=== PATIENT | female | born 1955 | race Caucasian/White ===

== ENCOUNTER 2019-10-13 07:39 | Outpatient (CLI) | payer MEDICARE, BC, SELFPAY ==
--- NOTE | ~2019-10-13 | MR_ITS ---
EXAMINATION: MR cervical spine wo con DATE: 10/13/2019 08:40 INDICATION: Neck pain. TECHNIQUE: Magnetic resonance imaging (MRI) of the cervical spine was performed without intravenous c ontrast. Sequences included sagittal T2-weighted FSE, sagittal STIR FSE, sagittal T1-weighted FSE, ax ial MERGE, and axial T2-weighted FSE. COMPARISON: None FINDINGS: There is kyphosis of upper cervical spine. Vertebral body heights are normal. There is wilfrid rely decreased disc height at C3-C4, moderately decreased disc height at C4-C5, and mildly decreased disc height at C5-C6. The spinal cord signal intensity is normal. The following disc levels are speci fically discussed: C2-C3: The disc does not extend beyond the endplate margin. There is no uncovertebral joint osteoarth ritis. There is no facet joint osteoarthritis. There is no neural foraminal stenosis. There is no arsalan tral canal stenosis. C3-C4: The disc is bulging. There is severe bilateral uncovertebral joint osteoarthritis. There is mi ld bilateral facet joint osteoarthritis. There is mild bilateral neural foraminal stenosis. There is mild central canal stenosis. C4-C5: The disc is bulging. There is mild right and severe left uncovertebral joint osteoarthritis. T here is mild bilateral facet joint osteoarthritis. There is mild right and moderate left neural you inal stenosis. There is mild central canal stenosis. C5-C6: The disc is bulging. There is moderate right and severe left uncovertebral joint osteoarthriti s. There is mild bilateral facet joint osteoarthritis. There is mild bilateral neural foraminal steno sis. There is mild central canal stenosis. C6-C7: The disc is mildly bulging. There is mild bilateral uncovertebral joint osteoarthritis. There is no facet joint osteoarthritis. There is mild right neural foraminal stenosis. There is no central canal stenosis. C7-T1: The disc does not extend beyond the endplate margin. There is no uncovertebral joint osteoarth ritis. There is mild bilateral facet joint osteoarthritis. There is no neural foraminal stenosis. The re is no central canal stenosis. IMPRESSION: 1. Severe cervical spondylosis. Reviewed, dictated and finalized at location A.
== END 2019-10-13 07:40 | disposition home or self-care (01) ==
PROVIDERS: PCP Nurse Practitioner Adult Health; Visit Provider Nurse Practitioner Adult Health
DX: M47.22 Other spondylosis with radiculopathy, cervical region (principal)
CPT/HCPCS: 72141

== ENCOUNTER 2019-12-29 14:16 | Outpatient (CLI) | payer MEDICARE, BC, SELFPAY ==
--- NOTE | ~2019-12-29 | CT_ITS ---
EXAMINATION: CT abdomen pelvis wo con DATE: 12/29/2019 15:40 INDICATION: Diverticulitis. TECHNIQUE: Computed tomography (CT) of the abdomen and pelvis was performed without intravenous contr ast. Automated exposure control and iterative reconstruction technique were employed. The dose-length product was 449.20 mGy-cm. COMPARISON: CT abdomen and pelvis 08/16/2017 FINDINGS: The visualized portions of the lung bases demonstrate mild atelectasis. No pleural effusion . The heart size is normal. There are coronary artery calcifications. There is a small pericardial ef fusion. There is a small sliding hiatal hernia. The liver and spleen are normal. There are gallstones in the gallbladder, which is normal in caliber. The pancreas and right adrenal gland are normal. The re is a 3.2 cm mass in left adrenal gland measuring low-attenuation without change, consistent with a n adenoma. 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 There is a 2 mm stone in left kidney. There are scattered diverticula in the colon. There is fat stranding ar ound the sigmoid colon, consistent with diverticulitis. There are no dilated loops of bowel. The appe ndix is not visualized. There are no pathologically enlarged lymph nodes. There is no free intraperit jolley fluid. There is mild thoracolumbar spondylosis. IMPRESSION: 1. Mild sigmoid diverticulitis. No perforation or abscess. 2. Small pericardial effusion, worsened from 08/16/2017. Reviewed, dictated and finalized at location B.
== END 2019-12-29 14:17 | disposition home or self-care (01) ==
PROVIDERS: PCP Nurse Practitioner Adult Health; Visit Provider Internal Medicine Gastroenterology
DX: K57.92 Diverticulitis of intestine, part unspecified, without perforation or abscess without bleeding (principal); I31.3 Pericardial effusion (noninflammatory)
CPT/HCPCS: 74176

== ENCOUNTER 2020-07-23 10:59 | Outpatient (CLI) | payer MEDICARE, BC, SELFPAY ==
--- NOTE | 2020-07-23 13:28 | WPDSIXMINUTE ---
Six Minute Walk This is a 6 minutes walk test. The test was performed and interpreted in accordance with the 2014 ERS/ATS task force guidelines. Findings: The patient's resting room air oxygen saturation measured by pulse oximetry was 94% and her heart rate was 80 bpm. Patient ambulated for 328 meters and oxygen saturation remained 90 to 95%. Heart rate at the end of the study was 111 bpm. There are no prior studies for comparison.
== END 2020-07-23 11:00 | disposition home or self-care (01) ==
PROVIDERS: PCP Nurse Practitioner Adult Health; Visit Provider Nurse Practitioner Adult Health
DX: Z99.81 Dependence on supplemental oxygen (principal)
CPT/HCPCS: 94618

== ENCOUNTER → 2021-01-03 00:51 | Outpatient (CLI) | payer MEDICARE, BC, SELFPAY ==
[2021-01-03 20:12] LABS: SARS-CoV-2 RNA PCR Negative
== END ==
PROVIDERS: PCP Nurse Practitioner Adult Health; Visit Provider Nurse Practitioner Adult Health
DX: R05 Cough (principal); Z20.822 Contact with and (suspected) exposure to COVID-19
CPT/HCPCS: C9803; U0003; U0005

== ENCOUNTER → 2021-05-02 03:41 | Outpatient (CLI) | payer MEDICARE, BC, SELFPAY ==
[2021-05-05 20:42] LABS: SARS-CoV-2 RNA PCR Negative
== END ==
PROVIDERS: PCP Nurse Practitioner Adult Health; Visit Provider Nurse Practitioner Adult Health
DX: Z20.822 Contact with and (suspected) exposure to COVID-19 (principal)
CPT/HCPCS: C9803; U0003; U0005

== ENCOUNTER 2021-05-14 08:03 | Outpatient (CLI) | payer MEDICARE, BC, SELFPAY ==
--- NOTE | 2021-05-14 | ECHO_ITS ---
Patient Info Name: Gloria Reyes Age: 65 years : 1955 Gender: Female Ht: 58 in Wt: 155 lbs BSA: 1.73 m2 HR: 66 bpm BP: 136 / 71 mmHg Heart Rhythm: Sinus Rhythm Technical Quality: Good Exam Date: 05/14/2021 9:25 AM Exam Location: [facility] Patient Status: Outpatient Admit Date: 05/14/2021 Staff Ordering Physician: Antonio, Alexandra FORRESTER Tattoo Artist: Aimee Churchill RDCS Attending Provider: Antonio, Alexandra FORRESTER Exam Type: CA echo doppler color flow Study Info Indications - MARIE R06.09 Complete two-dimensional, color flow and Doppler transthoracic echocardiogram is performed. Summary 1. Complete two-dimensional, color flow and Doppler transthoracic echocardiogram is performed. 2. Left ventricular chamber dimension is normal. 3. Left ventricular systolic function is normal, estimated at 60-65%. 4. There is no increased left ventricular wall thickness. 5. The left ventricular diastolic function is grade I diastolic dysfunction. 6. Left atrial chamber dimension is mildly enlarged. 7. There is mild mitral valve regurgitation. 8. There is mild tricuspid valve regurgitation. 9. The pericardium appears thickened pericardium. 10. There is small pericardial effusion. 11. Increased echogenicity seen within the pericardium. Left Ventricle Left ventricular chamber dimension is normal. Left ventricular systolic function is normal, estimated at 60-65%. There is no increased left ventricular wall thickness. The left ventricular diastolic function is grade I diastolic dysfunction. Right Ventricle Right ventricular chamber dimension is normal. Right ventricular systolic function is normal. Left Atria Left atrial chamber dimension is mildly enlarged. Right Atria Right atrial chamber dimension is normal. Atrial Septum Intact interatrial septum visualized by color flow imaging. Aortic Valve The aortic valve is not well visualized. There is no aortic valve stenosis. There is trace aortic valve regurgitation. Pulmonic Valve The pulmonic valve is normal. There is no pulmonic valve stenosis. There is trace pulmonic regurgitation. Mitral Valve The mitral valve has thickened leaflets. There is no mitral valve stenosis. There is mild mitral valve regurgitation. Tricuspid Valve The tricuspid valve leaflets are normal. There is no significant tricuspid valve stenosis. There is mild tricuspid valve regurgitation. No pulmonary hypertension, estimated pulmonary arterial systolic pressure is 32 mmHg. Pericardium/Pleural The pericardium appears thickened pericardium. There is small pericardial effusion. Increased echogenicity seen within the pericardium. Inferior Vena Cava Normal inferior vena cava with >50% collapse upon inspiration consistent with elevated right atrial pressure, 10 mmHg. Aorta The aortic root size at the sinus of Valsalva is normal. The prox ascending aorta size is normal. Left Ventricular Outflow Tract Name Value Normal LVOT 2D LVOT Diameter 2.0 cm LVOT Doppler LVOT Peak Gradient 4 mmHg LVOT Mean
--- NOTE | ~2021-05-14 | CT_ITS ---
EXAMINATION: CT lung screening DATE: 05/14/2021 08:33 INDICATION: PERSONAL HISTORY OF NICOTINE DEPENDENCE TECHNIQUE: Computed tomography (CT) of the chest was performed without intravenous contrast. Addition al 3D reconstructions utilizing coronal maximum intensity projection (MIP) were performed. Automated exposure control and iterative reconstruction technique were employed. The dose-length product was 79 .24 mGy-cm. COMPARISON: 08/03/2018 FINDINGS: Linear bands of atelectasis/scarring in the right middle lobe and lingula. There are few scattered ti ny less than 3 mm nodules scattered throughout both lungs which appears primarily due to some mucous plugging of a few of the smaller more peripheral bronchi in both lungs. No pulmonary edema or pleural effusion. Heart size is normal. Small pericardial effusion. Atherosclerotic coronary artery calcific ations. No pathologically enlarged thoracic lymphadenopathy. Thoracic aorta is normal in caliber. 3.2 cm low-attenuation left adrenal adenoma. Small calcified gallstone in the visualized neck of the gal lbladder. Mild thoracic spondylosis. IMPRESSION: 1. Lung-RADS category 2: Benign appearance or behavior. Continue annual screening with noncontrast lo w-dose chest CT in 12 months. 2. Small pericardial effusion. Reviewed, dictated and finalized at location A. O DIRECTOR IMPRESSION: 1. Lung-RADS category 2: Benign appearance or behavior. Continue annual screeni ng with noncontrast low-dose chest CT in 12 months. 2. Small pericardial effusion.
--- NOTE | 2021-05-14 12:52 | WPDSIXMINUTE ---
Six Minute Walk Procedure Procedure Performed Pulmonary Stress Test (6 min walk) Six Minute Walk This is a 6 minute walk test. The test was performed and interpreted in accordance with the 2014 ERS/ATS task force guidelines. Findings: The patient's resting room air oxygen saturation measured by pulse oximetry was 97% and heart rate was 71 bpm. Patient ambulated for 305 meters and oxygen saturation remained 88 to 98%. Heart rate at the end of the study was 115 bpm. The patient Should be formally evaluated for for supplemental oxygen use with exercise. There are no prior studies for comparison.
--- NOTE | 2021-05-14 12:54 | WPDPFTINT ---
PFT Procedure Performed PFT Procedure Performed Spirometry with Pre/Post Bronchodilator Plethysmography (Lung Vol) Diffusing Cap (DLCO) Flow Vol Loop PFT Interpretation This is a pulmonary function test with pre and post-bronchodilator spirometry, plethysmography and diffusing capacity. The test was performed and results interpreted in accordance with the 2019 and 2005 ATS/ERS Task Force guidelines respectively using the Global Lung Function Initiative-2012 reference equations. Patient demonstrated good effort and cooperation. Reproducibility criteria were met. The quality of the pre bronchodilator spirometry maneuver was Grade A and post bronchodilator spirometry maneuver was Grade A. Findings: Spirometry: There is decreased maximal expiratory airflow at all lung volumes with concave expiratory flow tracing. The contour of the inspiratory flow tracing is normal. The pre bronchodilator FVC is 1.44 L, 59% predicted. The pre bronchodilator FEV1 is 0.83 L, 43% predicted. The FEV1: FVC ratio is 58%. The post bronchodilator FVC is 1.48 L, representing a 3% increase. The post bronchodilator FEV1 is 0.90 L, representing a 9% increase. Plethysmography: The total lung capacity is 3.74 L, 87% predicted. The functional residual capacity is 2.48 L, 102% predicted. The residual volume is 2.30 L, 122% predicted. Diffusing capacity: The absolute diffusion capacity is 9.9, 53% predicted. The diffusing capacity corrected for alveolar volume is 3.80, 83% predicted. Impression: There is a severe obstructive abnormality without significant improvement after inhaling a single dose of albuterol. The lung volumes are normal. The absolute diffusing capacity is moderately decreased and normalizes when corrected for alveolar volume. There are no prior studies for comparison
== END 2021-05-14 08:04 | disposition home or self-care (01) ==
LOC: ANHIMG 08:08
PROVIDERS: PCP Nurse Practitioner Adult Health; Visit Provider Nurse Practitioner
DX: Z12.2 Encounter for screening for malignant neoplasm of respiratory organs (principal); Z87.891 Personal history of nicotine dependence; J44.9 Chronic obstructive pulmonary disease, unspecified; R94.31 Abnormal electrocardiogram [ECG] [EKG]; R06.09 Other forms of dyspnea; I34.0 Nonrheumatic mitral (valve) insufficiency; I36.1 Nonrheumatic tricuspid (valve) insufficiency; J90 Pleural effusion, not elsewhere classified
CPT/HCPCS: 36415; 71271; 80048; 80061; 82043; 82103; 82104; 82306; 82784; 82785; 82787; 83036; 83880; 84443; 85025; 86003; 86480; 93306; 94060; 94618; 94726; 94729

== ENCOUNTER 2021-05-14 10:43 | Outpatient (CLI) | payer MEDICARE, BC, SELFPAY ==
[2021-05-14 12:51] LABS: NT Pro B Type Natriuretic Pept 136 pg/mL (5-100)
[2021-05-14 14:24] LABS: Basophils Absolute Auto 0.1 K/mm3 (0.0-0.1); Basophils Percent Auto 0.9 % (0.2-1.2); Eosinophils Absolute Auto 0.2 K/mm3 (0-0.3); Eosinophils Percent Auto 3.6 % (0-4.4); Hematocrit 43.8 % (37.0-47.0); Hemoglobin 13.7 g/dL (12.0-15.0); Immature Granulocyte Absolute 0.02 K/mm3 (0.00-0.031); Immature Granulocyte Percent A 0.3 % (0-0.5); Lymphocytes Absolute Auto 1.88 K/mm3 (0.9-3.2); Lymphocytes Percent Auto 32.5 % (18.3-44.2); Mean Corpuscular HGB Conc 31.3 g/dl (32-36); Mean Corpuscular Hemoglobin 28.7 pg (26-34); Mean Corpuscular Volume 91.6 fl (80-100); Mean Platelet Volume 10.8 fl (7.4-10.4); Monocytes Absolute Auto 0.4 K/mm3 (0.1-0.6); Monocytes Percent Auto 7.6 % (2.6-8.5); Neutrophils Absolute Auto 3.2 K/mm3 (1.3-6.7); Neutrophils Percent Auto 55.1 % (45.5-73.1); Platelet Count Result 367 k/mm3 (150-375); Red Blood Count 4.78 M/mm3 (4.2-5.4); Red Cell Distribution Width 13.8 % (11.5-14.5); White Blood Count 5.8 K/mm3 (4.5-10.0)
[2021-05-17 02:29] LABS: Immunoglobulin G, Serum 748 mg/dL (600-1540); Immunoglobulin G1 373 mg/dL (382-929); Immunoglobulin G2 226 mg/dL (241-700); Immunoglobulin G3 45 mg/dL (22-178); Immunoglobulin G4 50.3 mg/dL (4.0-86.0)
[2021-05-17 10:03] LABS: Alpha-1-Antitrypsin, QN 173 mg/dL (83-199)
[2021-05-17 12:55] LABS: Immunoglobulin E 175 kU/L (<=114)
[2021-05-19 12:07] LABS: NIL 0.03 IU/mL; Quantiferon TB Plus, 1T NEGATIVE (NEGATIVE); TB1-NIL <0.00 IU/mL
== END 2021-05-14 10:44 | disposition home or self-care (01) ==
PROVIDERS: PCP Nurse Practitioner Adult Health; Visit Provider Nurse Practitioner
DX: R06.09 Other forms of dyspnea (principal); J30.9 Allergic rhinitis, unspecified
CPT/HCPCS: 36415; 82103; 82104; 82784; 82785; 82787; 83880; 85025; 86003; 86480

== ENCOUNTER 2021-05-14 10:52 | Outpatient (CLI) | payer MEDICARE, BC, SELFPAY ==
[2021-05-14 12:41] LABS: Cholesterol 240 mg/dL (0-200); HDL Direct 79 mg/dL; Triglycerides 104 mg/dL (<150)
[2021-05-14 12:45] LABS: Creatinine Urine 69.9 mg/dL
[2021-05-14 12:53] LABS: LDL Cholesterol Direct 128 mg/dL
[2021-05-14 13:16] LABS: Hemoglobin A1C 5.7 % (<5.7)
[2021-05-14 13:24] LABS: MALB Creatinine Ratio < 8.6 mg/g (0-30); Microalbumin Urine Random < 6.0 mg/L (0-16.7)
[2021-05-14 14:54] LABS: Vitamin D 25 Hydroxy 33.8 ng/mL
[2021-05-14 21:14] LABS: Anion Gap 13 mmol/L (8-16); Blood Urea Nitrogen 11 mg/dL (7-17); Calcium 9.8 mg/dL (8.4-10.2); Carbon Dioxide 26 mmol/L (22-30); Chloride 103 mmol/L (98-107); Estimated Glomerular Filt Rate > 60; Glucose 112 mg/dL (65-110); Potassium 4.4 mmol/L (3.4-5.0); Sodium 142 mmol/L (137-145)
== END 2021-05-14 10:53 | disposition home or self-care (01) ==
PROVIDERS: PCP Nurse Practitioner Adult Health; Visit Provider Nurse Practitioner Adult Health
DX: E55.9 Vitamin D deficiency, unspecified (principal); R73.03 Prediabetes; R94.6 Abnormal results of thyroid function studies; E66.9 Obesity, unspecified
CPT/HCPCS: 36415; 80048; 80061; 82043; 82306; 83036; 84443

== ENCOUNTER 2022-10-07 19:03 | Emergency (ER) | payer MEDICARE, BC, SELFPAY ==
--- NOTE | ~2022-10-07 | XR_ITS ---
EXAMINATION: XR chest 1V portable Exam Date/Time: 10/07/2022 19:40 CDT HISTORY: Shortness of breath HX COPD Comparison: 05/23/2017. RESULT: Lines, tubes, and devices: None. Lungs and pleura: Senescent changes. Left basilar scar. Otherwise clear. Cardiomediastinal silhouette: Stable. Other: No acute osseous or upper abdominal finding. IMPRESSION: No acute cardiopulmonary process. Reviewed, dictated and finalized at location K.
--- NOTE | ~2022-10-07 | US_ITS ---
EXAMINATION: US venous doppler [facility] DATE: 10/07/2022 20:02 INDICATION: left foot, lower leg swelling . TECHNIQUE: Grayscale images without and with compression and Doppler images of the left lower extremi ty veins were obtained. COMPARISON: None FINDINGS: The left common femoral vein, profunda (deep) femoral vein, femoral vein, popliteal vein, peroneal v ein, posterior tibial veins, gastrocnemius vein, and greater saphenous vein are patent. IMPRESSION: 1. Patent left lower extremity veins. No evidence of deep venous thrombosis. Reviewed, dictated and finalized at location K.
[2022-10-07 19:05] VITALS: BP 111/99; PULSE 81; RESP 20; TEMP 36.3; O2SAT 97
--- NOTE | 2022-10-07 19:09 | ECG_ITS ---
Measurements Intervals [place] Rate: 70 P: 60 OH: 165 QRS: 87 QRSD: 82 T: 66 QT: 359 QTc: 388 Interpretive Statements SINUS RHYTHM LOW QRS VOLTAGE IN PRECORDIAL LEADS INCOMPLETE RIGHT BUNDLE BRANCH BLOCK BORDERLINE T WAVE ABNORMALITY- ANTERIOR LEADS BASELINE ARTIFACT- I, III, AVL BORDERLINE ECG NO PREVIOUS ECG AVAILABLE FOR COMPARISON Electronically Signed On 10-08-2022 8:08:04 CDT by Armando Bruce D.O.
--- NOTE | 2022-10-07 19:32 | ED.GENADULT ---
HPI - General Adult General Chief complaint: Extremity Injury, Lower Stated complaint: left foot pain Time Seen by Provider: 10/07/22 19:29 Source: patient Mode of arrival: ambulatory Limitations: no limitations History of Present Illness HPI narrative: Patient is 67 years old white female drove herself to the emergency room from home complaining of swelling of the left foot and left ankle started 4 days ago. She denies any trauma. Or recent travel. History of COPD denies any shortness of breath different than usual. Related Data Home Medications Medication Instructions Recorded Confirmed ergocalciferol (vitamin D2) 1,250 10/07/22 mcg (50,000 unit) capsule fluticasone fur. 100 mcg-umeclid inhalation 10/07/22 62.5 mcg-vilant 25 mcg inhalat.powder (Trelegy Ellipta) montelukast 10 mg tablet mg 10/07/22 prednisone 20 mg tablet mg 10/07/22 Allergies Allergy/AdvReac Type Severity Reaction Status Date / Time levofloxacin Allergy Severe could not Verified 10/07/22 19:32 breathe and hives Iodinated Contrast Media Allergy Unknown Unknown Verified 10/07/22 19:32 Sulfa (Sulfonamide Allergy Unknown SWELLING Verified 10/07/22 19:32 Antibiotics) codeine AdvReac Unknown MELENDEZ Verified 07/30/20 09:00 Contrast Media Allergy Mild HEART Uncoded 07/30/20 09:00 PALPATION Review of Systems Review of Systems: All systems reviewed & are unremarkable except as noted in HPI and below PMFSH Family History Family History Mother Family history of malignant neoplasm of kidney Other Diabetes mellitus Family history of elevated blood lipids Family history of lung cancer Hypertension Social History Social History Smoking status: Heavy tobacco smoker Exam Narrative: General appearance: Well-developed, well-nourished Skin: Normal color Head: Normocephalic, nontraumatic Eyes: Clear conjunctiva ENT: Oropharynx normal, ears normal, nose normal Neck: Supple, nontender Chest and respiratory: Few scattered expiratory rhonchi bilaterally Heart: Regular rate/rhythm Abdomen: Soft, nontender, no organomegaly, quiet bowel sounds Vascular: Normal peripheral pulses, normal capillary refill. Musculoskeletal: Left foot and ankle showed 1+ edema, right foot and ankle showed trace edema. No bruises, no swelling, no rash, good range of motion, no varicose vein. Neurologic: Alert and oriented ?3, APPLICATION ENGINEER is normal as tested, no gross motor deficit Course Reevaluation(s) Reevaluation #1: No new changes, patient denying any new symptoms, patient was notified about the results and she is okay to go home. Date: 10/07/22 Time: 21:27 Vital Signs Vital signs: Vital Signs Temperature 36.3 C L 10/07/22 19:05 Pulse Rate 81 10/07/22 19:05 Respiratory Rate 20 10/07/22 19:05 Blood Pressure 111/99 H 10/07/22 19:05 Pulse Oximetry 97 10/07/22 19:05 Oxygen Delivery Room Air 10/07/22 19:05 Temperature 36.3 C L 10/07/22 19:05 Pulse Rate 81 10/07/22 19:05 Respiratory Rate 20 10/07/22 19:05 Blood Pressure 111/99 H 10/07/22 19:05 Pulse Oximetry 97 10/07/22 19:05 Oxygen Delivery Room Air 10/07/22 19:05 Medical Decision Making MDM Narrative Medical decision making narrative: Patient presents with swelling of left foot and left ankle, physical examination consistent with the above. Differential diagnosis deep vein thrombosis, CHF, dependent edema. Work-up today showed normal white count, normal coags, creatinine of 1.1, no old records for comparison, proBNP 970 compared to 136 2020. Chest
[2022-10-07 20:28] LABS: Basophils Absolute Auto 0.1 K/mm3 (0.0-0.1); Basophils Percent Auto 0.8 % (0.2-1.2); Eosinophils Absolute Auto 0.1 K/mm3 (0-0.3); Eosinophils Percent Auto 1.6 % (0-4.4); Hematocrit 36.9 % (37.0-47.0); Hemoglobin 11.5 g/dL (12.0-15.0); Immature Granulocyte Absolute 0.06 K/mm3 (0.00-0.031); Immature Granulocyte Percent A 0.7 % (0-0.5); Lymphocytes Absolute Auto 2.55 K/mm3 (0.9-3.2); Lymphocytes Percent Auto 28.3 % (18.3-44.2); Mean Corpuscular HGB Conc 31.2 g/dl (32-36); Mean Corpuscular Hemoglobin 28.1 pg (26-34); Mean Corpuscular Volume 90.2 fl (80-100); Mean Platelet Volume 10.3 fl (7.4-10.4); Monocytes Absolute Auto 0.9 K/mm3 (0.1-0.6); Monocytes Percent Auto 9.8 % (2.6-8.5); Neutrophils Absolute Auto 5.3 K/mm3 (1.3-6.7); Neutrophils Percent Auto 58.8 % (45.5-73.1); Platelet Count Result 352 k/mm3 (150-375); Red Blood Count 4.09 M/mm3 (4.2-5.4); Red Cell Distribution Width 15.5 % (11.5-14.5)
[2022-10-07 20:39] LABS: Alanine Aminotransferase 19 U/L (6-35); Albumin Level 3.8 g/dL (3.5-5.1); Alkaline Phosphatase 73 U/L (38-126); Anion Gap 5 mmol/L (8-16); Aspartate Amino Transferase 27 U/L (14-36); Bilirubin,Total 0.3 mg/dL (0.2-1.3); Blood Urea Nitrogen 22 mg/dL (7-17); Calcium 9.1 mg/dL (8.4-10.2); Carbon Dioxide 26 mmol/L (22-30); Chloride 109 mmol/L (98-107); Estimated Glomerular Filt Rate 49; Glucose 98 mg/dL (65-110); Potassium 4.1 mmol/L (3.4-5.0); Sodium 140 mmol/L (137-145)
[2022-10-07 20:40] LABS: INR 0.9; Prothrombin Time 12.5 Seconds (11.1-14.7)
[2022-10-07 20:41] LABS: Partial Thromboplastin Time 25.3 SECONDS (22.3-36.8)
[2022-10-07 20:53] LABS: NT Pro B Type Natriuretic Pept 970 pg/mL (19.9-100); Troponin I < 0.012 ng/mL (0.000-0.034)
[2022-10-07 21:39] VITALS: BP 137/76; PULSE 68; RESP 18; O2SAT 97
== END 2022-10-07 21:40 | disposition home or self-care (01) ==
PROVIDERS: Emergency Provider Emergency Medicine
DX: R60.0 Localized edema (principal); J44.9 Chronic obstructive pulmonary disease, unspecified; F17.200 Nicotine dependence, unspecified, uncomplicated; I45.10 Unspecified right bundle-branch block; R94.31 Abnormal electrocardiogram [ECG] [EKG]
CPT/HCPCS: 36415; 71045; 80053; 83880; 84484; 85025; 85610; 85730; 93005; 93971; 99284

== ENCOUNTER 2023-05-26 11:06 | Outpatient (CLI) | payer MEDICARE, BC, SELFPAY ==
--- NOTE | ~2023-05-26 | XR_ITS ---
XR chest 2V DATE: 05/26/2023 11:16 INDICATION: Chronic obstructive pulmonary disease TECHNIQUE: PA and lateral views COMPARISON: 10/07/2022 portable AP chest FINDINGS: Borderline heart size. Aortic arch calcification. Minimal discoid atelectasis or scarring in the right mid and lower lung. No pulmonary infiltrate or c onsolidation, pleural effusion or pulmonary vascular congestion or pneumothorax is detected. Osteopenia. IMPRESSION: Borderline heart size Aortic calcification No active pulmonary disease Osteopenia Reviewed, dictated and finalized at location B. R CENTER TECHNICIAN
== END 2023-05-26 11:07 | disposition home or self-care (01) ==
PROVIDERS: PCP Nurse Practitioner Adult Health; Visit Provider Nurse Practitioner Adult Health
DX: J44.9 Chronic obstructive pulmonary disease, unspecified (principal); I70.0 Atherosclerosis of aorta; M85.80 Other specified disorders of bone density and structure, unspecified site
CPT/HCPCS: 71046

== ENCOUNTER 2023-11-08 11:18 | Outpatient (CLI) | payer MEDICARE, BC, SELFPAY ==
[2023-11-08 18:56] LABS: Hematocrit 40.1 % (37.0-47.0); Hemoglobin 12.3 g/dL (12.0-15.0); Mean Corpuscular HGB Conc 30.7 g/dl (32-36); Mean Corpuscular Hemoglobin 27.8 pg (26-34); Mean Corpuscular Volume 90.7 fl (80-100); Mean Platelet Volume 10.7 fl (7.4-10.4); Platelet Count Result 308 k/mm3 (150-375); Red Blood Count 4.42 M/mm3 (4.2-5.4); Red Cell Distribution Width 14.7 % (11.5-14.5)
[2023-11-08 19:27] LABS: Vitamin D 25 Hydroxy 25.3 ng/mL
[2023-11-08 19:31] LABS: Anion Gap 5 mmol/L (4-12); Blood Urea Nitrogen 14 mg/dL (7-17); Calcium 9.7 mg/dL (8.4-10.2); Carbon Dioxide 26 mmol/L (22-30); Chloride 109 mmol/L (98-107); Cholesterol 207 mg/dL (0-200); Estimated Glomerular Filt Rate > 60; Glucose 90 mg/dL (65-110); HDL Direct 56 mg/dL; Potassium 4.3 mmol/L (3.4-5.0); Sodium 140 mmol/L (137-145); Triglycerides 102 mg/dL (<150)
[2023-11-08 19:41] LABS: LDL Cholesterol Direct 121 mg/dL
[2023-11-08 19:49] LABS: Hemoglobin A1C 5.4 % (<5.7)
== END 2023-11-08 11:19 | disposition home or self-care (01) ==
LOC: ANHBWCLAB 11:20
PROVIDERS: PCP Nurse Practitioner Adult Health; Visit Provider Nurse Practitioner Adult Health
DX: R73.9 Hyperglycemia, unspecified (principal); N28.9 Disorder of kidney and ureter, unspecified; E55.9 Vitamin D deficiency, unspecified; I10 Essential (primary) hypertension; E66.9 Obesity, unspecified; M79.10 Myalgia, unspecified site
CPT/HCPCS: 36415; 80048; 80061; 82306; 83036; 83735; 85027

== ENCOUNTER 2024-04-22 16:44 | Emergency (ER) | payer MEDICARE, BC, SELFPAY ==
--- NOTE | ~2024-04-22 | XR_ITS ---
EXAMINATION: XR abdomen/kub 1V DATE: 04/22/2024 17:31 INDICATION: Low abdominal pain. Left flank pain. TECHNIQUE: A supine view of the abdomen on 2 radiographs was obtained. COMPARISON: CT abdomen and pelvis 12/29/2019 FINDINGS: There are no dilated loops of bowel. There are phleboliths in the pelvis. There is a phlebo lith in right ovarian vein. IMPRESSION: 1. No visible urolithiasis. Reviewed, dictated and finalized at location A. RATION MANAGER IMPRESSION: 1. No visible urolithiasis.
[2024-04-22 16:54] VITALS: BP 121/95; PULSE 84; RESP 18; TEMP 36.5; O2SAT 97
--- NOTE | 2024-04-22 16:59 | ED.GENADULT ---
HPI - General Adult General Chief complaint: Urogenital-Female Stated complaint: UTI Time Seen by Provider: 04/22/24 16:59 Source: patient Mode of arrival: ambulatory Limitations: no limitations History of Present Illness HPI narrative: 5-year-old female patient presents to the [facility] with complaints of left flank pain that radiates to the pelvis. Patient states has been going on for the last 2-3 days. Patient states at times it does burn when she urinates. Patient states she has been treated with Augmentin recently for COPD exacerbation. Denies seeing any blood in the urine. Related Data Allergies Allergy/AdvReac Type Severity Reaction Status Date / Time levofloxacin Allergy Severe could not Verified 04/22/24 17:05 breathe and hives Iodinated Contrast Media Allergy Unknown Unknown Verified 04/22/24 17:05 Sulfa (Sulfonamide Allergy Unknown SWELLING Verified 04/22/24 17:05 Antibiotics) codeine AdvReac Unknown MELENDEZ Verified 04/22/24 17:05 Contrast Media Allergy Mild HEART Uncoded 04/22/24 17:05 PALPATION Review of Systems Review of Systems: CONSTITUTIONAL: Denies fever, chills, or sweats. EYES: Denies visual changes, redness, or discharge. ENT: Denies rhinorrhea, congestion, sore throat, or otalgia. CARDIOVASCULAR: Denies chest pain, palpitations, or edema. RESPIRATORY: Denies cough or dyspnea. GASTROINTESTINAL: Positive left lower abdominal pain, denies nausea, vomiting, or diarrhea. GENITOURINARY: positive dysuria or hematuria. SKIN: Denies rash or itching. MUSCULOSKELETAL: Denies back pain, joint pain, or myalgia. NEUROLOGIC: Denies headache, numbness, or weakness. PSYCHIATRIC: Denies anxiety or depression. 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 Migraines Obesity Pneumonia Rectal polyp Renal impairment Sleep apnea Surgical History Surgical History (Updated 04/22/24 @ 17:27 by ARIAS Balderas) H/O: hysterectomy History of appendectomy History of orthopedic surgery left leg fracture with jacky placement Hx of cholecystectomy Family History Family History Mother Family history of malignant neoplasm of kidney Sibling Lung cancer Heart disease Grandparent Heart disease Other Diabetes mellitus Family history of elevated blood lipids Family history of lung cancer Hypertension Social History Social History (Updated 12/08/22 @ 15:20 by Marva Gordon MA) Smoking status: Former smoker Alcohol intake: current Alcohol use details: every 6 months Substance use: never Substance use type: does not use Lack of Transportation: No Lack of Food: Never True Current Housing: I Have Housing Concerned About Future Housing: No Difficulty Paying Gas/Electric Bills: Decline to Answer Difficulty Paying for Meds: Decline to Answer Currently Unemployed: Decline to Answer Education: Decline to Answer Difficulty w/ Childcare or Family Care: Decline to Answer Living arrangements: with family Occupation/Education: retired Gender identity (if verbalized by the patient): Female Agree to blood products: Yes Comments At the time of my signature I agree with nursing past medical history, surgical, social, and family history. There is no relevant family history pertinent to the presenting complaint. Exam Narrative: GENERAL: Well-appearing, well-nourished, and in no acute distress. HEAD: Normocephalic, atraumatic. EYES: PERRLA and EOMI. ENT: Nares clear, no rhinorrhea or epistaxis. Mucous membranes moist. NECK: Supple. No lymphadenopathy CHEST: Clear to auscultation. No respiratory distress. HEART: Regular rate and rhythm. No murmur heard. Normal peripheral pulses. ABDOMEN: Soft, nontender, nondistended, normal active bowel sounds. left-sided CVA tenderness on percussion. Suprapubic tenderness on palpation EXTREMITIES: Normal range of motion. No edema. SKIN: Warm, dry, no rash. NEURO: No focal deficits. Alert and oriented x3. Course Course Level of Care: Express Care Visit Reevaluation(s) Reevaluation #1: patient was re-evaluated. Notified patient that our PACS system is down and our radiologist and is unable to read the x-ray at this time. Discussed with patient that I do see some either fully viral possibly what looks like may be a stone in the bladder as well as possible 1 in the urethra therefore were going to go ahead and treat her as a kidney stone today. Discussed with patient if there was anything other than not found we will call or let her know. Discussed with patient that I will give her some pain medication as well as some Flomax and is very important that she drinks lots of water and please follow up with her primary doctor. Patient verbalized understanding denies any other questions or concerns. Date: 04/22/24 Time: 19:10 Vital Signs Vital signs: Vital Signs Temperature 36.5 C 04/22/24 16:54 Pulse Rate 84 04/22/24 16:54 Respiratory Rate 18 04/22/24 16:54 Blood Pressure 121/95 H 04/22/24 16:54 Pulse Oximetry 97 04/22/24 16:54 Oxygen Delivery Room Air 04/22/24 16:54 Temperature 36.5 C 04/22/24 16:54 Pulse Rate 84 04/22/24 16:54 Respiratory Rate 18 04/22/24 16:54 Blood Pressure 121/95 H 04/22/24 16:54 Pulse Oximetry 97 04/22/24 16:54 Oxygen Delivery Room Air 04/22/24 16:54 Vital signs reviewed. Medical Decision Making Differential Diagnosis Differential Diagnosis: Differential diagnosis: Uncomplicated lower UTI, uncomplicated UTI, pyelonephritis Vital Signs Vital Signs: Vital Signs Temperature 36.5 C 04/22/24 16:54 Pulse Rate 84 04/22/24 16:54 Respiratory Rate 18 04/22/24 16:54 Blood Pressure 121/95 H 04/22/24 16:54 Pulse Oximetry 97 04/22/24 16:54 Oxygen Delivery Room Air 04/22/24 16:54 Temperature 36.5 C 04/22/24 16:54 Pulse Rate 84 04/22/24 16:54 Respiratory Rate 18 04/22/24 16:54 Blood Pressure 121/95 H 04/22/24 16:54 Pulse Oximetry 97 04/22/24 16:54 Oxygen Delivery Room Air 04/22/24 16:54 Lab Data Labs: Lab Results 04/22/24 Range/Units 17:09 POC Urine Color Dark POC Urine Clarity Clear POC Urine pH 5.5 POC Ur Specif [place] 1.030 POC Urine Protein 1+ (Negative) POC Ur Glucose (UA) Negative (Negative) POC Urine Ketones Negative (Negative) POC Urine Blood Trace (Negative) POC Urine Nitrite Negative (Negative) POC Urine Bilirubin 1+ (Negative) POC Urine Urobilinogen 0.2 POC U Leukocyte Esteras Negative (Negative) Critical Care Time Critical Care Time Critical Care Time: No Discharge Plan Discharge Clinical Impression: Acute left flank pain Patient Disposition: Home, Self-Care Condition: Stable Instructions: Antibiotic Form, Flank Pain (ED) Additional Instructions: drink larger quantities of fluids to help you pass kidney stones and change your diet to help prevent future stones. You may be asked to collect and strain your urine. This will allow your provider to check the size and type of stones that you have. Follow the treatment plan your healthcare provider prescribes. Follow activity restrictions, such as not driving or operating machinery, as recommended by your healthcare provider or pharmacist, especially if you are taking pain medicines. Ask your healthcare provider if there are any foods or medicines you should avoid. Drink enough fluids to keep your urine light yellow in color, unless you are told to limit fluids. Get plenty of rest while you???re recovering. Try to get at least 7 to 9 hours of sleep each night. Call your healthcare provider if you have new or worsening: Back pain Abdominal cramps or pain Burning with urination Blood in your urine Passing gravel-like or sand-like stones in the urine Nausea or vomiting Signs of infection around your surgical wound if you had surgery. These include: The area around your wound is more red or painful The wound area is very warm to touch You have blood, pus, or other fluid coming from your wound area You have chills or muscle aches Fever higher than 101.5?? F (38.6?? C) Prescriptions: New tamsulosin [Flomax] 0.4 mg capsule 0.4 mg PO DAILY 5 Days Qty: 5 0RF hydrocodone-acetaminophen 5-325 mg tablet 1 tablet PO Q8H PRN (Reason: pain) 3 Days Qty: 9 0RF No Action ergocalciferol (vitamin D2) 1,250 mcg (50,000 unit) capsule 50,000 unit PO WEEKLY Qty: 12 1RF Trelegy Ellipta 200-62.5-25 mcg blister with device 1 inh inhalation Q24H Qty: 60 6RF fluticasone propionate 50 mcg/actuation spray,suspension See Rx Instructions .ROUTE .COMPLEX Qty: 16 3RF Dose Instruction: SPRAY 2 SPRAYS INTRANASALLY DAILY ADMINISTER INTO EACH NOSTRIL Rx Instructions: SPRAY 2 SPRAYS INTRANASALLY DAILY ADMINISTER INTO EACH NOSTRIL albuterol sulfate 90 mcg/actuation HFA aerosol inhaler 1 puff inhalation Q4H PRN (Reason: shortness of breath or wheezing) Qty: 8.5 6RF methylprednisolone [Medrol (Yordan)] 4 mg tablets,dose pack See Rx Instructions PO PER PKG DIR Qty: 21 0RF Rx Instructions: PO PER PKG DIR amoxicillin-pot clavulanate [Augmentin] 500-125 mg tablet 1 tablet PO Q12H 10 Days Qty: 20 0RF Follow-up/Referrals: Pamela Araiza APRN [Primary Care Provider] - Time of Disposition: 19:06
[2024-04-22 17:12] LABS: EDUAAPPEAR Clear; EDUABILI 1+ (Negative); EDUABLOOD Trace (Negative); EDUACOLOR1 Dark; EDUAGLUCOSE Negative (Negative); EDUAKETONE Negative (Negative); EDUALEUKO Negative (Negative); EDUANITRATE Negative (Negative); EDUAPH 5.5; EDUAPROTEIN 1+ (Negative); EDUAUROBILI 0.2
== END 2024-04-22 19:10 | disposition home or self-care (01) ==
PROVIDERS: Emergency Provider Nurse Practitioner Family; PCP Nurse Practitioner Adult Health
DX: R10.9 Unspecified abdominal pain (principal); Z87.891 Personal history of nicotine dependence; E11.9 Type 2 diabetes mellitus without complications; K21.9 Gastro-esophageal reflux disease without esophagitis; M19.90 Unspecified osteoarthritis, unspecified site; J44.9 Chronic obstructive pulmonary disease, unspecified; Q63.1 Lobulated, fused and horseshoe kidney; E66.9 Obesity, unspecified
CPT/HCPCS: 74018; 81003; 87086; 99213; G0463

== ENCOUNTER 2024-06-28 14:38 | Emergency (ER) | payer MEDICARE, BC, SELFPAY ==
--- NOTE | ~2024-06-28 | XR_ITS ---
EXAMINATION: XR chest 2V DATE: 06/28/2024 15:22 INDICATION: Wheezing. TECHNIQUE: Frontal and lateral views of the chest were obtained. COMPARISON: Chest 2 views 05/26/2023 FINDINGS: There is mild atelectasis in right mid and lower lung zones. No pleural effusion or pneumot horax. The heart size is normal. IMPRESSION: 1. Mild atelectasis in right mid and lower lung zones. Reviewed, dictated and finalized at location A. [employer]IL[employer]
--- OUTSIDE RECORDS SUMMARY | 2024-06-28 14:41 | XMS_ITS | Referral Summary ---
Author Organization [facility] Address [address] [place] [address] Care Team Providers Care Frame Feeder Name Role Phone Pamela Araiza NP Primary Care Provider [phone] Allergies Active Allergy Reactions Criticality Noted Date Comments Codeine Iodinated Contrast Media Iodine Levofloxacin Sulfa (Sulfonamide Antibiotics) Shortness of breath High 11/22/2019 Medications albuterol HFA (PROAIR HFA) 90 mcg/actuation inhaler inhale 2 puff by inhalation route 4 - 6 hours as needed 0 1 Active fluticasone-ume clidin-vilanter (TRELEGY ELLIPTA) 100-62.5-25 mcg inhaler Trelegy Ellipta 100 mcg-62.5 mcg-25 mcg powder for inhalation Active loratadine (CLARITIN) 10 mg tablet loratadine 10 mg tablet TAKE 1 TABLET BY MOUTH EVERY DAY Active montelukast (SINGULAIR) 10 mg tablet montelukast 10 mg tablet Active cholecalciferol (VITAMIN D-3) 50,000 unit capsule Take 1 capsule (50,000 Units total) by mouth once a week Active ibuprofen (ADVIL,MOTRIN) 800 mg tablet Take 1 tablet (800 mg total) by mouth 3 (three) times a day 21 tablet 3 Active cyclobenzaprine (FLEXERIL) 10 mg tablet Take 1 tablet (10 mg total) by mouth 2 (two) times a day as needed for muscle spasms 20 tablet 3 Active traMADoL (ULTRAM) 50 mg tablet 0 Active OneTouch Delica Plus Lancet 30 gauge misc USE DIRECTED.CHECK BLOOD SUGARS ONCE DAILY 3 Active OneTouch Verio Flex meter misc daily 3 Active OneTouch Verio test strips strip daily 3 Active Active Problems Problem Noted Date Diagnosed Date Allergic rhinitis due to animal hair and dander 07/23/2022 Allergic rhinitis due to pollen 07/23/2022 Chronic allergic conjunctivitis 07/23/2022 Chronic obstructive pulmonary disease 07/23/2022 Cough 07/23/2022 Mild intermittent asthma 07/23/2022 Moderate persistent asthma without complication 07/23/2022 Uncomplicated severe persistent asthma 3 Vitamin D deficiency 07/23/2022 Pericardial effusion 08/05/2021 Tendinopathy of left gluteus medius 12/19/2020 Lateral pain of left hip 12/19/2020 Sacroiliac joint dysfunction of left side 2020 Allergic rhinitis 06/07/2020 Pre-diabetes 06/07/2020 Chronic right shoulder pain 12/21/2019 Rotator cuff syndrome of right shoulder 12/21/19 20 Resolved Problems Problem Noted Date Diagnosed Date Resolved Date Hyperglycemia 10/25/2018 07/23/2022 Immunizations Name Administration Dates Next Due Hib (PRP-OMP) 10/30/2021 Influenza, Quad, Adjuvantated, Intramuscular 07/2019 Influenza, Quadrivalent, Hig h Dose, Preservative Free, Intrr 03/04/2022 Influenza, Quadrivalent, Split, Intramuscular Influenza, Quadrivalent, Spl it, Preservative Free, Intramuscular 06/07/2018,12/28/2016 Influenza, Trivalent, High D ose, Split, Preservative Free, Intramuscular 03/12/2019 Influenza, Trivalent, Preservative Free, Intramu scular 06/26/2013,06/19/2013 Pneumococcal Conjugate PCV 13 04/10/2020 Pneumococcal Polysaccharide PPV23 11/06/2021, Tdap 06/26/2013,06/19/2013 ZOSTER Recombinant 04/10/2020 Social History Tobacco Use Types Packs/Day Years Used Date Smoking Tobacco: Former Alcohol Use Standard Drinks/Week Comments No 0 (1 standard drink = 0.6 oz pur e alcohol) PHQ-2 Answer Date Recorded PHQ-2 Total Score (If total score is 3 or more points, staff should administer the PHQ-9) 0 07/23/2022 Personal Safety Answer Date Recorded Getting School Help Needed Denies 05/29 Comments Unknown Sex and Gender Information Value Date Recorded Sex Assigned at Not on file Legal Sex Female 7:54 AM GASKET FORMER Gender Identity Not on file Sexual Orientation Not on file Last Filed Vital Signs Vital Sign Reading Time Taken Comments Blood Pressure 152/98 11/26/2022 3:57 PM CDT Pulse 53 09/30/2022 10:21 AM CDT Temperature 36.3 C (97.3 F) 07/23/2022 10:25 AM GASKET FORMER Respiratory Rate 16 07/23/2022 10:25 AM GASKET FORMER Oxygen Saturation 95% 09/30/2022 10:21 AM CDT Inhaled Oxygen Concentration - - Weight 72.6 kg (160 lb) 09/30/2022 10:21 AM CDT Height 149.9 cm (4' 11 ) 09/30/2022 10:21 AM CDT Body Mass Index 32.32 09/30/2022 10:21 AM CDT Plan of Treatment Not on file Insurance MEDICARE [facility]IC[facility] Care Teams Frame Feeder Relationship Specialty Start Date End Date Pamela Araiza NP [facility] [address] PCP - General Nurse Practitioner 11/26/22
--- OUTSIDE RECORDS SUMMARY | 2024-06-28 14:41 | XMS_ITS | Encounter Summary ---
Author Organization [facility] Address [facility] [place] [address] Care Team Providers Care Cartoon Animator Name Role Phone Pamela Araiza NP Primary Care Provider [phone] Encounter Details Date Type Department Care Team ([facility] st Contact Info) Description 10/22/2018 Abstract [facility] CONVERSION [address] [place] [address] , Generic Conversion, Social History Tobacco Use Types Packs/Day Years Used Date Smoking Tobacco: Never Assessed Comments Unknown Sex and Gender Information Value Date Recorded Sex Assigned at Not on file Legal Sex Female 4:14 PM CDT Gender Identity Not on file Sexual Orientation Not on file documented as of this encounter Plan of Treatment Not on file documented as of this encounter Visit Diagnoses Not on filedocumented in this encounter Care Teams Cartoon Animator Relationship Specialty Start Date End Date Pamela Araiza NP [address] [place] [address] PCP - General NURSE PRACTITIONER 09/14/19 documented as of this encounter
--- OUTSIDE RECORDS SUMMARY | 2024-06-28 14:41 | XMS_ITS | Patient Health Record ---
Author Organization [facility] Address [address] [place] [address] Care Team Providers Care Contour Path Tape Mill Operator Name Role Phone Pamela Moe Primary Care Provider Yesika bismark Jessica Jabier Unavailable [phone] [employer], Provider Unavailable Unavailab le Allergies Allergen (clinical drug ingredient) Drug/Non Drug Allergy documented on EMR Reaction Allergy Type Onset Date Status IV CONTRAST DYE (uncoded) hives Allergy Active Levaquin hives Drug Allergy Active Sulfamethoxazole other reaction Drug Allergy Active Reason For Referral No Information Medications Medication SIG (Take, Route, Frequency, Duration) Notes Start Date End Date Status CLARITIN 10 mg 1 tab(s) orally once a day Active Vitamin D3 50 MCG 1 TAB(S) ORALLY ONCE A DAY *Please review and pick correct strength-formulati on from [employer] options. If intended option is not shown, discontinue and re-order from Quick Search* Active OZEMPIC 2 MG/1.5 ML (0.25 MG OR 0.5 MG DOSE) DIRECTED SUBCUTANEOUSLY ONCE A WEEK *Please review for potential replacement for e-prescription and drug interaction check* Active VITAMIN D3 50 mcg 1 tab(s) orally once a day Active PROAIR DIGIHALER 90 mcg/inh 2 puff(s) inhaled every 6 hours Active SINGULAIR 10 mg 1 tab(s) orally once a day Active TRELEGY ELLIPTA 200 mcg-62.5 mcg-25 mcg/inh 1 puff(s) inhaled once a day for 30 day(s) Active Trelegy Ellipta 200 MCG-62.5 MCG-25 MCG/INH 1 PUFF(S) INHALED ONCE A DAY for 30 DAY(S) *Please review and pick correct strength-formulati on from [employer] options. If intended option is not shown, discontinue and re-order from Quick Search* Active Singulair 10 MG 1 tab(s) orally once a day Active ProAir Digihaler 90 MCG/INH 2 PUFF(S) INHALED EVERY 6 HOURS *Please review and pick correct strength-formulati on from [employer] options. If intended option is not shown, discontinue and re-order from Quick Search* Active Claritin 10 MG 1 tab(s) orally once a day Active Immunizations Vaccine Route Administration Date Status Comme nts NOC PedvaxHIB IM Intramuscular 10/30/2021 Administered NOC Pneumovax 23 IM Intramuscular 11/06/2021 Administered Social History Tobacco Use: Social History Observation Description Date Details (start date - stop date) Former Smoker 09/22/1972 - 09/20/2019 Smoking Smart Form: Question Answer Notes Are you a: former smoker When did you start smoking? 09/22/1972 When did you stop smoking? 09/20/2019 How long it has been since you last smoked? > 10 years Problems Problem Type SNOMED Code ICD Code Onset Dates Problem Status W/U Status Risk Notes Problem Vitamin D deficiency (94348037) Vitamin D deficiency, unspecified (E55.9) Active confirmed Problem Chronic allergic conjunctivitis (91894903) Other chronic allergic conjunctivitis (H10.45) Active confirmed Problem Allergic rhinitis caused by pollen (disorder) (34189709) Allergic rhinitis due to pollen (J30.1) Active confirmed Problem Allergic rhinitis (52848994) Other allergic rhinitis (J30.89) Active confirmed Problem Chronic rhinitis (32341531) Chronic rhinitis (J31.0) Active confirmed Problem Chronic obstructive pulmonary disease (97609403) Chronic obstructive pulmonary disease, unspecified (J44.9) Active confirmed Problem Mild intermittent asthma (116791470) Mild intermittent asthma, uncomplicated (J45.20) Active confirmed Problem Uncomplicated mild persistent asthma (886418461) Mild persistent asthma, uncomplicated (J45.30) Active confirmed Problem Uncomplicated moderate persistent asthma (028773553) Moderate persistent asthma, uncomplicated (J45.40) Active confirmed Problem Uncomplicated severe persistent asthma (213227620) Severe persistent asthma, uncomplicated (J45.50) Active confirmed Problem Hyperglycemia (99014033) Hyperglycemia, unspecified (R73.9) Active confirmed Problem Allergic rhinitis caused by pollen (disorder) (83159019) Allergic rhinitis due to pollen (J30.1) Active confirmed Problem Allergic rhinitis caused by animal hair and dander (007194380994815) Allergic rhinitis due to animal (cat) (dog) hair and dander (J30.81) Active confirmed Problem Allergic rhinitis (94022296) Other allergic rhinitis (J30.89) Active confirmed Problem Chronic sinusitis (00890700) Other chronic sinusitis (J32.8) Active confirmed Problem Vitamin D deficiency (31541802) Vitamin D deficiency, unspecified (E55.9) Active confirmed Problem History of pneumonia (471076262) Personal history of pneumonia (recurrent) (Z87.01) Active confirmed Problem Cough (finding) (65424416) Cough, unspecified (R05.9) Active confirmed Encounters Encounter Location Date Provider Diagnosis [address] [address] 10/30/2023 Provider Marilee Cough, unspecified R05.9 ; Vitamin D deficiency, unspecified E55.9 and Other allergic rhinitis J30.89 Assessments Encounter Date Diagnosis (ICD Code) Assessment Notes Treatment Notes Treatment Clinical Notes Section Notes 10/30/2023 Cough, unspecified (ICD-10 - R05.9) 10/30/2023 Vitamin D deficiency, unspecified (ICD-10 - E55.9) 10/30/2023 Other allergic rhinitis (ICD-10 - J30.89) Plan Of Treatment Pending Test Test Name Order Date -Vitamin D, 25-Hydroxy 10/09/2021 -Tetanus/Diphtheria Ab 10/09/2021 Insurance Providers Payer Name Payer Address Payer Phone Subscriber Number Group Number Insured Name Patient Relationship to Insured Coverage Start Date Coverage End Date [employer] (Medicare) Attention Claims [address] [place] [address] [id number] Gloria Hutson Self - patient is the insured [facility] [address] [place] [address] [phone] [id number] Reyes, Gal Spouse - patient is the spouse of the insured Medical (General) History Medical History History ICD Code Chronic obstructive pulmonary disease, u nspecified J44.9 Hyperglycemia, unspecified R73.9 Vitamin D deficiency, unspecified E55.9 Surgical History Surgery Date(Month/Year) appendectomy leg surgery Hospitalization History Reason Date(Month/Year) pneumonia 2011
--- OUTSIDE RECORDS SUMMARY | 2024-06-28 14:41 | XMS_ITS | Clinical Summary ---
Author Organization [facility] Address [address] [place] [address] Care Team Providers Care Services Clerk Name Role Phone Pamela Araiza NP Primary Care Provider [phone] Allergies Active Allergy Reactions Criticality Noted Date [...] PPV23 11/06/2021, Tdap 06/26/2013,06/19/2013 ZOSTER Recombinant 04/10/2020 Surgical History Surgery Date Site/Laterality Comments LEG SURGERY Left rods APPENDECTOMY Medical History Medical History Date Comments Adiposity Obesity Chronic obstructive pulmonary disease (HCC) COPD Hypertension Hypertension Family History Medical History Relation Name Comments Cancer Brother 1 Gallbladder disease Brother 1 Heart attack Brother 1 Diabetes Brother 2 Hyperlipidemia Brother 2 Hypertension Brother 2 Hyperlipidemia Brother 3 Hypertension Brother 3 Heart attack Mother Myocardial Infa rction; Cause of : Myocardial Infarction Heart disease Other Stroke Other Hyperlipidemia Sister Relation Name Status Comments Brother 1 Brother 2 Alive Brother 3 Alive Father Mother (Age 62) Other Sister Alive Social History Tobacco Use Types Packs/Day Years [...] on file Legal Sex Female 7:54 AM PRINTING MACHINIST Gender Identity Not on file Sexual Orientation Not on file Obstetrics History Last Filed Vital Signs Vital Sign Reading Time Taken Comments Blood Pressure 152/98 11/26/2022 3:57 PM CDT Pulse 53 09/30/2022 10:21 AM CDT Temperature 36.3 C (97.3 F) 07/23/2022 10:25 AM PRINTING MACHINIST Respiratory Rate 16 07/23/2022 10:25 AM PRINTING MACHINIST Oxygen Saturation 95% 09/30/2022 10:21 AM CDT Inhaled Oxygen Concentration - - Weight 72.6 kg (160 lb) 09/30/2022 10:21 AM CDT Height 149.9 cm (4' 11 ) 09/30/2022 10:21 AM CDT Body Mass Index 32.32 09/30/2022 10:21 AM CDT Plan of Treatment Health Maintenance Due Date Last Done Comments Breast Cancer Screening-Mammogram 1955 Colon Cancer Screening-Colonoscopy 1955 Hepatitis C Screening 1955 Osteoporosis Screening-Bone Density Scan 1955 Hepatitis B Screening 09/10/1971 Well Visit 65+ 2018 Zoster Vaccine (2 of 2) 06/05/2020 04/10/2020 DTaP/Tdap/Td Vaccine (3 - Td or Tdap) 06/26/2023 06/26/2013, 06/19/2013 Depression Screening 07/24/2023 07/23/2022 Fall Risk Assessment 07/24/2023 07/23/2022 Covid-19 Vaccine (5 - 2023-2 5 season) 2024 10/01/2020, 08/28/2020, 08/26/2020, Additional history exists Influenza Vaccine (#1) 2024 2, 02/19/2020, 02/17/2020, Additional history exists Pneumococcal vaccine 65+ Completed 022, 04/10/2020, 06/07/2018 Insurance MEDICARE MEDICARE [facility] MEDICARE [facility]IC[facility] Care Teams Services Clerk Relationship Specialty Start Date End Date Pamela Araiza NP [facility] [place] [address] PCP - General Nurse Practitioner 11/26/22
--- OUTSIDE RECORDS SUMMARY | 2024-06-28 14:41 | XMS_ITS ---
Author Organization [facility] Address [address] [place] [address] Care Team Providers Care Sewage Reticulation Drafting Officer Name Role Phone Pamela Moe Primary Care Provider Yesika Jabier Sloan Unavailable [phone] ZZ-Migration, Provider Unavailable Unavailab le Allergies Allergen (clinical drug ingredient) Drug/Non Drug Allergy documented on EMR Reaction Allergy Type Onset Date Status IV CONTRAST DYE (uncoded) hives Allergy Active Levaquin hives Drug Allergy Active Sulfamethoxazole other reaction Drug Allergy Active REASON FOR VISIT [facility] To [facility] Conversion Encounter Medications Medication SIG (Take, Route, Frequency, Duration) Notes Start Date End Date Status Vitamin D3 50 MCG 1 TAB(S) ORALLY ONCE A DAY *Please review and pick correct [facility]. If intended option is not [...] review and pick [facility]. If intended option is not shown, [...] Active Encounters Encounter Location Date Provider Diagnosis [facility] [place] [address] 10/30/2023 Provider EDIS-Loren Cough, unspecified R05.9 ; Vitamin D deficiency, [...] a day Progress Notes * Gloria FELDERDOB: (68 yo F)Acc No.[id number]:10/30/2023 Patient: Gloria RAMIREZ Provider: Mark Pimentel :1955 A ge:68 Y S ex:Female Date:10/30/2023 Address:[address] [place], [place] [id number] Pcp:Pamela Araiza, ANP- Subjective: * Chief Complaints: * 1 . [facility] Conversion Encounter. * Medical History: * Allergies: [...] *Please review and pick correct [facility]. If intended option is not [...] * Electronic signature of Chintan RANDHAWA-Migration on 06/28/2024 at 02:40 PM ANIMAL CARE TECHNICIAN Sign off status: Pending * Provider: Mark aguirre Migration Date: 0 10/30/2023 Generated for Liya jones/Lj/Heribertosmitting on: 0 06/28/2024 02:40 PM ANIMAL CARE TECHNICIAN
--- OUTSIDE RECORDS SUMMARY | 2024-06-28 14:41 | XMS_ITS | Clinical Summary ---
Author Organization [facility] Address [facility]ly [facility] [place] [address] Care Team Providers Care Chief Meteorologist Name Role Phone Jose G Pamela BYRON Primary Care Provider [phone] Allergies Active Allergy Reactions Criticality Noted Date Comments Codeine Unknown 09/24/2022 Iodinated Contrast Media Shortness of Breath High Levofloxacin Shortness of Breath High 11/22/2019 Sulfa Antibiotics Shortness of Breath High 0 Medications traMADol 50 MG tablet 0 Active desloratadine 5 MG Tab tablet 1 tablet daily. Active montelukast 10 MG tablet Take 10 mg by mouth nightly at bedtime. Active vitamin D3, cholecalciferol , 1.25 MG (26677 UT) capsule Take 50,000 Units by mouth once a week. Active Fluticasone-Ume clidin-Vilant (TRELEGY ELLIPTA) 200-62.5-25 MCG/ACT AEROSOL POWDER, BREATH ACTIVATED Inhale 200 mcg into the lungs daily. 2 Active albuterol sulfate HFA 108 (90 Base) MCG/ACT inhaler Inhale 1 puff into the lungs 4 (four) times daily. Active albuterol (PROVENTIL) (2.5 MG/3ML) 0.083% nebulizer solution Take 3 mLs (2.5 mg total) by nebulization 4 (four) times daily. Active Active Problems Problem Noted Date Diagnosed Date Lateral pain of left hip 12/19/2020 Sacroiliac joint dysfunction of left side 2020 Tendinopathy of left gluteus medius 12/19/2020 Allergic rhinitis 06/07/2020 Pre-diabetes 06/07/2020 Chronic right shoulder pain 12/21/2019 Rotator cuff syndrome of right shoulder 12/21/19 20 Capsulitis of shoulder, right 12/21/2019 Hyperglycemia 10/25/2018 Family History Medical History Relation Comments Cancer Brother Lung Cancer Brother No Known Problems Father No Known Problems Maternal Aunt No Known Problems Maternal Grandfather No Known Problems Maternal Grandmother No Known Problems Maternal Uncle Heart Attack Mother No Known Problems Paternal Aunt No Known Problems Paternal Grandfather No Known Problems Paternal Grandmother No Known Problems Paternal Uncle No Known Problems Sister Relation Status Comments Brother Father Maternal Aunt Maternal Grandfather Maternal Grandmother Maternal Uncle Mother Paternal Aunt Paternal Grandfather Paternal Grandmother Paternal Uncle Sister Social History Tobacco Use Types Packs/Day Years Used Date Smoking Tobacco: Former Cigarettes Smokeless Tobacco: Never Tobacco Cessation:Counseling Given: No Alcohol Use Standard Drinks/Week Comments Yes 0 (1 standard drink = 0.6 oz pur e alcohol) AUDIT-C Answer Date Recorded Q1: How often do you have a drink containing alc ohol? Monthly or less 12/21/2019 Average Number of Drinks Not on file 020 Frequency of Binge Drinking Not on file 10/2019 PHQ-2 Answer Date Recorded PHQ-2 Score - If the patient scores above 3, please move on to questions 3-9 1 01/25/2020 Comments Unknown Sex and Gender Information Value Date Recorded Sex Assigned at Not on file Legal Sex Female 4:14 PM CDT Gender Identity Not on file Sexual Orientation Not on file Last Filed Vital Signs Vital Sign Reading Time Taken Comments Blood Pressure 140/82 07/05/2023 4:11 PM COST CONTROL SUPERVISOR Pulse 80 07/05/2023 4:11 PM COST CONTROL SUPERVISOR Temperature 36.5 C (97.7 F) 07/05/2023 4:11 PM COST CONTROL SUPERVISOR Respiratory Rate 20 07/05/2023 4:11 PM COST CONTROL SUPERVISOR Oxygen Saturation 96% 07/05/2023 4:11 PM COST CONTROL SUPERVISOR Inhaled Oxygen Concentration - - Weight 73.9 kg (163 lb) 07/05/2023 4:11 PM COST CONTROL SUPERVISOR Height 144.8 cm (4' 9 ) 07/05/2023 4:11 PM COST CONTROL SUPERVISOR Body Mass Index 35.27 07/05/2023 4:11 PM COST CONTROL SUPERVISOR Plan of Treatment Health Maintenance Due Date Last Done Comments Colorectal Cancer Screening Colonoscopy ( Years) 1955 PHQ-2 (Phys[facility] [place]) 1965 Mammogram Screening 1993 RSV Immunization or 60+ Years (1 - Risk 60-74 years 1-dose series) 2013 Annual Medicare Wellness Visit 2018 Dexa Scan (General) 2018 Zoster Vaccines (2 of 2) 06/05/2020 04/10/2020 DTaP, Tdap and Td Vaccines (3 - Td or Tdap) 06/26/2023 06/26/2013, 06/19/2013 COVID-19 Vaccine (3 - 2023- season) 2024 10/01/2020, 08/28/2020 Influenza Adult (#1) 2024 02/19/2020, 03/12/2019, 06/07/2018, Additional history exists PHQ-2 (Physician [place]) 05/17/2024 Pneumococcal Vaccine: 65+ Years Completed 11/06/2021, 04/10/2020, 06/07/2018 Hepatitis C Completed 03/19/2022, 03/19/2022 Meningococcal B Vaccine Aged Out No l onger eligible based on patient's age to complete this topic Meningococcal Vaccine Aged Out No eneida bharathi eligible based on patient's age to complete this topic RSV Immunizations Under 20 Months Aged Out No longer eligible based on patient's age to complete this topic Insurance MEDICARE [facility] Care Teams Chief Meteorologist Relationship Specialty Start Date End Date Pamela Araiza NP [address] [place] [id number] PCP - General NURSE PRACTITIONER 09/14/19
--- OUTSIDE RECORDS SUMMARY | 2024-06-28 14:41 | XMS_ITS | Data Portability ---
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 The patient has been informed of what a TeleMedicine visit is. Patient is located at home. Provider is located at office. Names and roles of persons in addition to the patient and provider participating in telemedicine services include none. The patient had a 15 minute TeleMedicine consultation via other to discuss the following: Google Meet [email or web address] Not available 09/24/2022 12:32:24 Plan of Treatment Reminders Order Date Submit Date Provider Last Modified By Organization Details Last Modified Time Details Appointments None recorded. Lab None recorded. Referral None recorded. Procedures None recorded. Surgeries None recorded. Imaging None recorded. Medication Orders prednisone 20 mg tablet 2022 023 [facility]/Pharmacy #[id number], [address] [place] [address], [address], 12:29:34 ciprofloxac in 750 mg tablet 2022 023 [facility]/Pharmacy #[id number], [address] [place] [address], [address], 12:29:35 Tessalon Perles 100 mg capsule 2022 023 [facility]/Pharmacy #[id number], [address] [facility], [place], [address], 12:29:36 Trelegy Ellipta 200 mcg-62.5 mcg-25 mcg powder for inhalation 2022 [facility]/Pharmacy #[id number], [address] [facility], [place], [address], 13:50:43 albuterol sulfate HFA 90 mcg/actuati on aerosol inhaler 2022 [facility]/Pharmacy #[id number], [address] [facility], [place], [address], 13:50:44 albuterol sulfate 2.5 mg/3 mL (0.083 %) solution for nebulizatio n 2022 [id number], [address] [facility], [place], [address], 13:50:44 Patient TargetsNo targets recorded. Patient Instructions Encounter Date Encounter Id Patient Instructions Last Modified By Organization Details Last Modified Time 09/24/2022 [id number] Due to the COVID-19 (Novel Coronavirus) pandemic, it is within this context (and with the understanding that this method of patient encounter is in the patient s best interest as well as the health and safety of other patients and the public) that telehealth is being provided for this patient encounter rather than a lkih-ib-lzrw visit. This patient encounter is appropriate at this time. This patient has been advised of the potential risks and limitations of this mode of treatment (including, but not limited to, the absence of in-person examination) and has agreed to be treated in a remote fashion despite these risks. Any and all of the patient s/patient s family s questions on this issue have been answered, and I have made no promises or guarantees to the patient. The patient has also been advised to contact this office for worsening conditions or problems, and seek emergency medical treatment and/or call 911 if the patient deems either necessary. HPI and/or vitals, if listed, were provided by the patient. [email or web address] Not available 09/24/2022 11:07:38 Reason for Referral None Reported. Results Created Date Observation Date Name Description Value Unit Range Abnormal Flag Note LastModifiedBy Organization Detail LastModifiedTime 02/25/20 22 02/25/2022 VITAM IN D 25-HY DROXY vd25oh 19.1 NG/mL 30-100 low Vitam in D Statu s: Defic ient: <20 ng/mL Insuf ficie nt: 20-29 ng/mL Suffi cient : 30-10 0 ng/mL Not Available [facility] (Lab) [address] [place], [address], 02/25/2022 12:15:21 02/25/2002/24/2022 HEMOG LOBIN A1C HA1C 5.8 % 4.0-6. 0 Diabe kel Scree althea Crite eleazar: <5.7% Consi stent with absen ce of diabe kel 5.7-6 .4% Consi stent with incre ased risk for diabe kel (pred iabet es) >OR=6 .5% Consi stent with diabe kel REFER ENCE: Diabe kel Care 2016, 39(Sauer ppl.1 ):s13 -s22 Not Available [facility] (Lab) [address] [place], [address], 02/24/2022 20:19:23 02/25/20 22 02/24/2022 TSH thyroid-stim ulating hormone 3.550 uIU/m L 0.465- 4.680 Not Available [facility] (Lab) [address] [place], [address], 02/24/2022 16:58:26 02/25/2002/24/2022 LIPID PANEL cholesterol 225 mg/dL 140-19 9 high NIH LORETO NSUS RECOM MENDA TION FOR NEDA STERO L: ADULT CHILD LOW RISK: <200 <170 BORDE RLINE : <200- 239 ----- HIGH RISK: >240 >200 Not Available [facility] (Lab) [address] [place], [address], 02/24/2022 15:46:19 02/25/2002/24/2022 LIPID PANEL triglyceride s 107 mg/dL 0-150 NIH LORETO NSUS REPOR T RECOM MENDA TION FOR TRIGL YCERI SARAH: ADULT CHILD LOW RISK: <150 ----- BODER LINE: 150-1 99 ----- HIGH RISK: >200 ----- Not Available [facility] (Lab) [address] [place], [address], 02/24/2022 15:46:19 02/25/2002/24/2022 LIPID PANEL HDL cholesterol 66 mg/dL 40- Not Available [facility] (Lab) [address] [place], [address], 02/24/2022 15:46:19 02/25/2002/24/2022 LIPID PANEL LDL cholesterol, calculated 138 mg/dL 0-130 high NIH LORETO NSUS REPOR T RECOM MENDA TIONS FOR LDL: ADULT CHILD LOW RISK <130 <110 (OPTI MAL LDL) <100 ----- PEEWEE RLINE : 130-1 59 ----- HIGH RISK: >160 >130 A TRIGL YCERI DE RESUL T >400 INVAL IDATE S THE CALCU LATIO N FOR LDL FRACT IONAT ION - THE LDL RESUL T WILL NOT BE REPOR KAMLESH. Not Available [facility] (Lab) [address] [place], [address], 02/24/2022 15:46:19 02/25/20 22 02/24/2022 BASIC METAB OLIC PANEL sodium 141 mmol/ L 137-14 5 Not Available [facility] (Lab) [address] [place], [address], 02/24/2022 15:46:04 02/25/20 22 02/24/2022 BASIC METAB OLIC PANEL potassium 4.5 mmol/ L 3.5-5. 1 Not Available [facility] (Lab) [address] [facility] [place], [address], 02/24/2022 15:46:04 02/25/2002/24/2022 BASIC METAB OLIC PANEL chloride 108 mmol/ L 98-107 high Not Available [facility] (Lab) [address] [place], [address], 02/24/2022 15:46:04 02/25/2002/24/2022 BASIC METAB OLIC PANEL carbon dioxide 26 mmol/ L 22-30 Not Available [facility] (Lab) [address] [place], [address], 02/24/2022 15:46:04 02/25/2002/24/2022 BASIC METAB OLIC PANEL anion gap 11.5 mmol/ L 14-22 low Not Available [facility] (Lab) [address] [place], [address], 02/24/2022 15:46:04 02/25/20 22 02/24/2022 BASIC METAB OLIC PANEL glucose 88 mg/dL 70-99 Not Available [facility] (Lab) [address] [place], [address], 02/24/2022 15:46:04 02/25/20 22 02/24/2022 BASIC METAB OLIC PANEL BUN 14 mg/dL 8-19 Not Available [facility] (Lab) [address] [place], [address], 02/24/2022 15:46:04 02/25/20 22 02/24/2022 BASIC METAB OLIC PANEL creatinine 0.83 mg/dL 0.66-1 .25 Not Available [facility] (Lab) [address] [place], [address], 02/24/2022 15:46:04 02/25/20 22 02/24/2022 BASIC METAB OLIC PANEL GFR >60 Refer ence Range : [place] [facility] GFR Healt hy Adult : >60 mL/mi n/1.7 3 m2 Chron ic Kidne y Disea se: 15-60 mL/mi n/1.7 3 m2 Kidne y Failu re: <15/m L/min /1.73 m2 www.n iddk. nih.g ov The MDRD study equat ion has not been valid ated in child butch <18 years of age; pregn ant women ; the elder ly >85 years of age; or in some racia l or ethni c subgr oups, such as Hispa nics. Outsi de the valid ated sim eters , estim ated GFR is less accur ate, requi ring clini carlita judgm ent on a case- by-ca se basis . Clini carlita inter preta tion for other races and ages must be made by the clini deandre. The MDRD study equat ion has not been valid ated for the evalu ation of serum creat inine relat ed to nutri martha l statu s or medic ation usage . For perso ns <18 years of age, a pedia tric GFR calcu lator is avail able on the [facility] websi te: https ://sarai w.caity morgan.o rg/pr ofess ional s/kdo qi/gf r_cal culat or Not Available [facility] (Lab) [address] [place], [address], 02/24/2022 15:46:04 02/25/20 22 02/24/2022 BASIC METAB OLIC PANEL calcium 9.4 mg/dL 8.4-10 .2 Not Available [facility] (Lab) [address] [place], [address], 02/24/2022 15:46:04 02/25/20 22 DEXA, axial skele ton [facility] [address] [place] [address] Patien t Name: JOSEFA DALEY YUSUF Cannon Access ion #: [id number] Sex: F : 1955 1 Locati on: MO2 Attend ing Physic yasir: JOHNATHON CATALAN Orderi Physic yasir: JOHNATHON CATALAN Exam Date: 2021 9:37 AM Exam Name: XR DEXA AXIAL/ HIP/PE LVIS/S PINE Admitt ing Diagno sis(es ): RADIOL OGY REPORT - FINAL EXAM: XR DEXA AXIAL/ HIP/PE LVIS/S PINE HISTOR Y: post leif 66-yea r-old female with osteop orosis screen ing. COMPAR ELKIN: None availa ble. TECHNI QUE: Dual energy x-ray of absorp tion examin ation of the bilate ral hips and lumbar spine in AP projec tion was perfor med. FINDIN GS: Lumbar Spine (L1-L4 ): The mean bone minera l densit y is 0.803 g/cm2 hydrox yapati te, correl ating with a T-scor e of -3.2. Bilate ral hips: The mean bone minera l densit y is 0.791 g/cm2 calciu m hydrox yapati te, correl ating with a T-scor e of -1.7. Page 1 of 2 [facility] Lela miramontes Name: YUSUF REYES Access ion #: [id number] Sex: F : 1955 1 Exam Date: 2021 9:37 AM Exam Name: XR DEXA AXIAL/ HIP/PE LVIS/S PINE Admitt ing Diagno sis(es ): IMPRES ANEL: 1. The patien t's lumbar spine T-scor e is consis tent with osteop orosis . 2. The patien t's bilate ral hip T-scor e is consis tent with osteop enia overal l. It should be noted that the BMD of the left femora l neck is consis tent with osteop orosis . Accord ing to the [employer]i zation , T-scor e values greate r than -1.0 are normal , values betwee n -1.0 and -2.5 are catego rized as osteop enia, T-scor e of -2.5 or more are catego rized as osteop orosis . Create d and electr onical ly signed by: Abhinav ortez MD Signed Date: 2021 9:56 AM (CT) Dictat ed by: Abhinav ortez MD DD: 2021 9:56 AM (CT) DT: 2021 9:56 AM (CT) Page 2 of 2 [id number] [facility] (Imaging) [address] [place], [address], 07/15/2022 08:30:58 02/25/20 22 02/24/2022 bone densi ty No observ ation record ed. [id number] [facility] Add On [facility] Orders [address] [place], [address], 07/15/2022 08:30:58 08/20/19 23 08/17/2022 CT, chest , w/o contr ast No observ ation record ed. [email or web address] Not Available 18:53:26 Result Notes None recorded. Problems Name Problem SNOMED Code Status Onset Date Resolution Date Notes Provider Name and Address Organization Details Recorded Time Acute bronchitis 42785351 Active 2021 Not Available [facility] 3 08:23:46 Ptosis of eyelid 63977878 Active 2021 Not Available [facility] 3 08:23:46 Abnormal thyroid hormone 689101135 Active 2018 Not Available [facility] 3 08:23:46 Chronic obstructiv e pulmonary disease 11341273 Active Not Available [facility] 3 08:23:47 Otalgia 15372876 Active 2021 Not Available [facility] 3 08:23:47 Laboratory test result abnormal 593593793 Active 2021 Not Available [facility] 3 08:23:47 Acute exacerbati on of chronic obstructiv e pulmonary disease 599661603 Active 2021 Not Available [facility] 3 08:23:47 Pneumonia 014013112 Completed Not Available [facility] 3 08:23:47 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 Active Not Available [facility] 3 08:23:47 Increased blood pressure 83505346 Completed Not Available [facility] 3 08:23:47 Fluid level behind tympanic membrane Completed Not Available [facility] 3 08:23:47 Vaginal dryness on intercours e 785276216 Active Not Available [facility] 3 08:23:48 Chest pain 19680394 Completed Not Available [facility] 3 08:23:48 Unable to clear sputum 509168125 Active 2021 Not Available [facility] 3 08:23:48 Severe chronic obstructiv e pulmonary disease 224218453 Active 2021 Not Available [facility] 3 08:23:48 Otitis externa 9867360 Completed Not Available [facility] 3 08:23:48 Vitamin D deficiency 79188024 Active Not Available [facility] 3 08:23:48 Depressive disorder 53363649 Active Not Available [facility] 3 08:23:48 Pericardia l effusion 582173879 Active 2021 Not Available [facility] 3 08:23:49 Disorder of esophagus 53822526 Completed Not Available [facility] 3 08:23:49 Fever 762856525 Completed Not Available [facility] 3 08:23:49 Postmenopa usal flushing 152539192 Active Not Available [facility] 3 08:23:49 Immunoglob ulin deficiency 031814505 Active 2021 Not Available [facility] 3 08:23:49 Environmen dylan allergy 494177335 Active 2021 Not Available [facility] 3 08:23:49 Multiple nodules of lung 597813967 Active 2021 Not Available [facility] 3 08:23:50 Cough 37917034 Completed Not Available [facility] 3 08:23:50 Upper respirator y infection 62327243 Completed Not Available [facility] 3 08:23:50 Allergic rhinitis 98407046 Active Not Available [facility] 3 08:23:50 Osteoporos is 95966610 Active 2021 Not Available [facility] 3 08:23:50 Otitis media 16242600 Completed Not Available [facility] 3 08:23:50 Urinary tract infectious disease 18000758 Completed Not Available [facility] 3 08:23:51 Prediabete s 021085899 Active 2020 Not Available [facility] 3 08:23:51 Posterior rhinorrhea 40436663 Active Not Available [facility] 3 08:23:51 Palpitatio ns 99326907 Active 2021 Not Available [facility] 3 08:23:51 Hyperglyce valdo 70646990 Active 2018 Not Available [facility] 3 08:23:51 Fatigue 82755871 Active Not Available [facility] 3 08:23:52 Vitamin deficiency 97654497 Active Not Available [facility] 3 08:23:52 Arthralgia of temporoman dibular joint 14003456 Active 2021 Not Available [facility] 3 08:23:52 Problem Notes None recorded. 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 Not Available [facility] 07/15/2022 08:19:31 Imaging Results Imaging Date Name Status LastModified by [facility] Details LastModified Time 02/24/2022 DEXA, axial skeleton completed [id number] [facility] (Imaging) [address] [place], [address], 07/15/2022 08:30:58 02/24/2022 bone density completed [id number] [facility] Add On Lab Orders [address], [place], [address], 07/15/2022 08:30:58 08/17/2022 CT, chest, w/o contrast completed [email or web address] Information not available 09/02/2022 18:53:26 Procedure Notes None recorded. Medical Equipment None Reported. Allergies Allergen ID Allergen Name Allergen Category Reaction Reaction Severity Criticality Documentation Date Start Date Code Code System Note Provider Name and Address Organization Details Recorded Time Substance with sulfonami de structure and antibacte rial mechanism of action (substanc e) medicatio n anaphylax is Not available Not available 07/15/2022 27464 8003 SNOMED Not Available [facility] 3 08:30:45 12753 Levaquin medicatio n irregular heart rate Not available Not available 07/15/2022 53722 2 RxNorm Not Available [facility] 3 08:30:45 48077 Iodinated contrast media (substanc e) medicatio n Not available Not available Not available 07/15/2022 27650 2004 SNOMED Not Available [facility] 3 08:30:45 86633 codeine medicatio n headache Not available Not available 07/15/2022 2670 RxNorm Not Available [facility] 3 08:30:45 Medications Name Sig Start Date Stop Date Status Note LastModified by Organization Details LastModified Time cyclobenza ted 10 mg tablet TAKE 1 TABLET BY MOUTH TWICE A DAY NEEDED FOR MUSCLE SPASMS active Not Available Not Available No t Available bupropion HCl SR 150 mg tablet,12 hr sustained- release 10/15 completed Not Available Not Available Not Available venlafaxin e ER 37.5 mg capsule,ex tended release 24 hr Take 1 capsule(s ) every day by oral route for 30 days. 09/28 completed Not Available Not Available Not Available prednisone 10 mg tablet Take 4 tablets every day by oral route for 5 days. active Not Available Not Available No t Available doxycyclin e hyclate 100 mg capsule Take 1 capsule twice a day by oral route for 10 days. active Not Available Not Available No t Available ipratropiu m 0.5 mg-albuter ol 3 mg (2.5 mg base)/3 mL nebulizati on soln Inhale 3 mL every day by nebulizat ion route for 1 day. 05/21 completed Not Available Not Available Not Available Klor-Con 10 mEq tablet,ext ended release active Not Available Not Available Not Available albuterol sulfate 2.5 mg/3 mL (0.083 %) solution for nebulizati on INHALE 3 ML BY NEBULIZAT ION 3 TIMES A DAY DIRECTED FOR 30 DAYS. active Not Available Not Available No t Available ciprofloxa deedee 750 mg tablet TAKE 1 TABLET BY MOUTH EVERY 12 HOURS UNTIL FINISHED active Not Available Not Available No t Available azithromyc in 250 mg tablet TAKE 2 TABLETS (500 MG) BY ORAL ROUTE ONCE DAILY FOR 1 DAY THEN 1 TABLET (250 MG) BY ORAL ROUTE ONCE DAILY FOR 4 DAYS active Not Available Not Available No t Available ibuprofen 800 mg tablet TAKE 1 TABLET BY MOUTH THREE TIMES A DAY active Not Available Not Available No t Available benzonatat e 200 mg capsule Take 1 capsule 3 times a day by oral route for 10 days. active Not Available Not Available No t Available clarithrom ycin 500 mg tablet 09/28 completed Not Available Not Available Not Available hydrocodon e 5 mg-acetami nophen 325 mg tablet TAKE 1 TABLET(S) EVERY 6 HOURS BY ORAL ROUTE FOR 7 DAYS. active Not Available Not Available No t Available Claritin 10 mg tablet Take 1 tablet every day by oral route as directed for 30 days. active Not Available Not Available No t Available meloxicam 15 mg tablet TAKE 1 TABLET BY MOUTH EVERY DAY active Not Available Not Available No t Available prednisone 20 mg tablet TAKE 2 TABLETS BY MOUTH DAILY FOR 3 DAYS active Not Available Not Available No t Available alendronat e 70 mg tablet TAKE 1 TABLET BY MOUTH EVERY WEEK active Not Available Not Available No t Available promethazi ne 6.25 mg-codeine 10 mg/5 mL syrup active Not Available Not Available Not Available phentermin e 37.5 mg tablet TAKE 1 TABLET BY MOUTH EVERY DAY active Not Available Not Available No t Available omeprazole 40 mg capsule,de layed release Take 1 capsule every day by oral route for 30 days. 09/28 completed TAKES PRN Not Available Not Available Not Available tramadol 50 mg tablet TAKE 1 TABLET BY MOUTH EVERY 6 HOURS NEEDED FOR 10 DAYS active Not Available Not Available No t Available amoxicilli n 875 mg tablet active Not Available Not Available Not Available methocarba mol 750 mg tablet Take 1 tablet every 4 hours by oral route as needed. active Not Available Not Available No t Available Flagyl 500 mg tablet Take 1 tablet every 8 hours by oral route for 10 days. active Not Available Not Available No t Available meclizine 25 mg tablet TAKE 1 TABLET BY MOUTH THREE TIMES A DAY NEEDED FOR 10 DAYS 11/05 completed Not Available Not Available Not Available benzonatat e 100 mg capsule TAKE 2 CAPSULES BY MOUTH 3 TIMES A DAY DIRECTED FOR 10 DAYS active Not Available Not Available No t Available desloratad ine 5 mg tablet TAKE 1 TABLET BY MOUTH EVERY DAY 2021 active Not Available Not Available Not Avai lable pantoprazo le 40 mg tablet,del ayed release 08/16 completed Not Available Not Available Not Available diphenhydr amine 25 mg capsule TAKE 2 CAPSULES 1 HOUR PRIOR TO TESTING active Not Available Not Available No t Available oseltamivi r 75 mg capsule TAKE 1 CAPSULE BY MOUTH TWICE A DAY FOR 5 DAYS 10/11 completed Not Available Not Available Not Available buspirone 10 mg tablet TAKE 1 TABLET BY MOUTH TWICE A DAY 10/16 completed Not Available Not Available Not Available prednisone 50 mg tablet TAKE 1 TABLET 13 HOURS PRIOR TO TESTING, 1/ 7 HOURS PRIOR AND 1 /1 HOUR PRIOR TO TESTING. active Not Available Not Available No t Available hydrochlor othiazide 12.5 mg capsule TAKE 1 CAPSULE BY MOUTH EVERY DAY active Not Available Not Available No t Available Advair Diskus 500 mcg-50 mcg/dose powder for inhalation active Not Available Not Available N ot Available gabapentin 300 mg capsule TAKE 1 CAPSULE BY MOUTH EVERYDAY AT BEDTIME active Not Available Not Available No t Available magnesium citrate oral solution USE DIRECTED active Not Available Not Available No t Available montelukas t 10 mg tablet TAKE 1 TABLET BY MOUTH EVERY DAY FOR 30 DAYS active Not Available Not Available No t Available hydrocodon e 5 mg-acetami nophen 500 mg tablet active Not Available Not Available No t Available codeine 10 mg-guaifen esin 100 mg/5 mL oral liquid TAKE 10 ML BY MOUTH EVERY 4 HOURS NEEDED 10/11 completed Not Available Not Available Not Available mupirocin 2 % topical ointment 08/16 completed Not Available Not Available Not Available furosemide 20 mg tablet active Not Available Not Available Not Available levalbuter ol 1.25 mg/3 mL solution for nebulizati on U ONE VIAL IN NEBULIZER Q 6 TO 8 H PRN active Not Available Not Available No t Available azelastine 137 mcg (0.1 %) nasal spray active Not Available Not Available Not Available cefprozil 250 mg tablet active Not Available Not Available Not Available methylpred nisolone 4 mg tablets in a dose pack TAKE 6 TABLETS ON DAY 1 DIRECTED ON PACKAGE AND DECREASE BY 1 TAB EACH DAY FOR A TOTAL OF 6 DAYS active Not Available Not Available No t Available hydrocodon e 10 mg-chlorph eniramine 8 mg/5 mL oral susp extend.rel 12hr active Not Available Not Available Not Available albuterol sulfate HFA 90 mcg/actuat ion aerosol inhaler INHALE 2 PUFFS EVERY 4 TO 6 HOURS NEEDED. USE WITH SPACER active Not Available Not Available No t Available Vitamin D2 1,250 mcg (50,000 unit) capsule active Not Available Not Available Not Available albuterol sulfate concentrat e 5 mg/mL(0.5 %) solution for nebulizati on 04/15 completed Not Available Not Available Not Available fluticason e propionate 50 mcg/actuat ion nasal spray,susp ension INHALE 2 SPRAY(S) EVERY DAY BY INTRANASA L ROUTE IN THE MORNING FOR 30 DAYS. 04/15 completed Not Available Not Available Not Available ipratropiu m bromide 0.02 % solution for inhalation 10/15 completed Not Available Not Available Not Available amoxicilli n 875 mg-potassi um clavulanat e 125 mg tablet TAKE 1 TABLET BY MOUTH TWICE A DAY DIRECTED FOR 7 DAYS active Not Available Not Available No t Available neomycin-p olymyxin-h ydrocort 3.5 mg-10,000 unit/mL-1 % ear drops,susp INSTILL 4 DROPS INTO AFFECTED EAR(S) 3 TIMES PER DAY FOR 7 DAYS active Not Available Not Available No t Available azithromyc in 500 mg tablet Take 1 tablet every day by oral route for 7 days. active Not Available Not Available No t Available amoxicilli n-potassiu m clavulanat e 1,000 mg-62.5 mg tablet,ext .rel 12hr TAKE 1 TABLET BY MOUTH TWICE A DAY active Not Available Not Available No t Available guaifenesi n 400 mg tablet Take 1 tablet every 4 hours by oral route as directed for 15 days. active Not Available Not Available No t Available bupropion HCl XL 150 mg 24 hr tablet, extended release Take 1 tablet twice a day by oral route for 30 days. 08/16 completed Not Available Not Available Not Available nitrofuran toin monohydrat e/macrocry stals 100 mg capsule TAKE ONE CAPSULE BY MOUTH EVERY 12 HOURS active Not Available Not Available No t Available OneTouch UltraSoft Lancets test twice daily active Not Available Not Available No t Available Lunesta 3 mg tablet active Not Available Not Available No t Available Accu-Chek Nataliia strips test sugar once daily active Not Available Not Available No t Available budesonide -formotero l HFA 160 mcg-4.5 mcg/actuat ion aerosol inhaler INHALE 2 PUFFS BY MOUTH TWICE A DAY. RINSE MOUTH AFTER EACH USE. 04/18 completed Not Available Not Available Not Available peg 3350-elect rolytes 236 gram-22.74 gram-6.74 gram-5.86 gram solution active Not Available Not Available Not Available Mucinex 1,200 mg tablet, extended release Take 1 tablet twice a day by oral route as directed for 30 days. active Not Available Not Available No t Available Artificial Tears (glycerin- peg) 1 %-0.3 % eye drops Use as needed both eyes tid 10/16 completed Not Available Not Available Not Available Systane Nighttime 94 %-3 % eye ointment Apply 1 applicati on twice a day by ophthalmi c route as needed. active Not Available Not Available No t Available Gavilyte-C 240 gram-22.72 gram-6.72 gram-5.84 gram oral solution 04/15 completed Not Available Not Available Not Available Prevnar 13 (PF) 0.5 mL intramuscu lar syringe [facility] 10/16 completed Not Available Not Available Not Available Daliresp 500 mcg tablet active Not Available Not Available Not Available Chantix Starting Month Box 0.5 mg (11)-1 mg (42) tablets in dose pack active Not Available Not Available No t Available ProAir RespiClick 90 mcg/actuat ion breath activated USE 2 PUFF BY MOUTH EVERY 4 TO 6 HOURS NEEDED active Not Available Not Available No t Available OneTouch Verio Flex Meter TEST ONCE DAILY active Not Available Not Available No t Available Fluarix Quad (PF) 60 mcg (15 mcg x 4)/0.5 mL IM syringe active Not Available Not Available N ot Available Trelegy Ellipta 100 mcg-62.5 mcg-25 mcg powder for inhalation INHALE 1 PUFF EVERY DAY BY INHALATIO N ROUTE DIRECTED FOR 30 DAYS. 02/18 completed Not Available Not Available Not Available Shingrix (PF) 50 mcg/0.5 mL intramuscu lar suspension , kit [facility] 10/16 completed Not Available Not Available Not Available Ozempic 0.25 mg or 0.5 mg (2 mg/1.5 mL) subcutaneo us pen injector INJECT 0.5 MG UNDER THE SKIN WEEKLY active Not Available Not Available No t Available Lonhala Magnair Starter 25 mcg/mL solution for nebulizati on 04/15 completed Not Available Not Available Not Available Dexcom G6 Sensor device USE DIRECTED. active Not Available Not Available No t Available Dexcom G6 Wide Area Network Administrator USE DIRECTED. active Not Available Not Available No t Available Dexcom G6 Transmitte r device USE DIRECTED. active Not Available Not Available No t Available OneTouch Delica Plus Lancet 30 gauge active Not Available Not Available Not Available Fluzone High-Dose (PF) 180 mcg/0.5 mL intramuscu lar syringe active Not Available Not Available Not Available Fluad Quad ( 65yr up)(PF) 60 mcg (15 mcg x 4)/0.5mL IM syringe [facility] 10/16 completed Not Available Not Available Not Available Trelegy Ellipta 200 mcg-62.5 mcg-25 mcg powder for inhalation INHALE 1 PUFF EVERY DAY DIRECTED active Not Available Not Available No t Available Vitals Date Recorded Body mass index (BMI) Body mass index (BMI) Body height Body height Oxygen saturation Oxygen saturation in Arterial blood by Pulse oximetry Oxygen saturation Oxygen saturation in Arterial blood by Pulse oximetry Heart rate Heart rate Body temperature Body temperature Body weight Body weight Systolic blood pressure Diastolic blood pressure Systolic blood pressure Diastolic blood pressure Provider Name and Address Organization Details Last Updated DateTime 3 32.9 kg/m2 34 kg/m2 146.05 cm 146.05 cm 98 % 98 % 97 % 97 % 76 /min 80 /min 98.6 [degF] 98.1 [degF] 13982.1 g 26966.7 8 g 120 mm[Hg] 80 mm[Hg] 110 mm[Hg] 70 mm[Hg] Not Available [facility] 3 08:19:53 Date Recorded Body height Body mass index (BMI) Body weight Body temperature Heart rate Oxygen saturation Oxygen saturation in Arterial blood by Pulse oximetry Systolic blood pressure Diastolic blood pressure Provider Name and Address Organization Details Last Updated DateTime 3 146.05 cm 35.5 kg/m2 74911.9 3 g 97.5 [degF] 73 /min 97 % 97 % 108 mm[Hg] 62 mm[Hg] Fernanda Velasquez [employer] 3 10:13:39 Date Recorded Body height Provider Name an d Address Organization Details Last Updated DateTime 09/24/2022 146.05 cm Swati Rivera MA [facility] [employer] 09/24/2022 11:07:42 Date Recorded Body height Body mass index (BMI) Body weight Body temperature Heart rate Oxygen saturation Oxygen saturation in Arterial blood by Pulse oximetry Systolic blood pressure Diastolic blood pressure Provider Name and Address Organization Details Last Updated DateTime 3 149.86 cm 33.3 kg/m2 55638.7 4 g 96.3 [degF] 68 /min 94 % 94 % 108 mm[Hg] 60 mm[Hg] Fernanda Ron [employer] 3 11:26:24 Social History Question Answer Notes LastModified by Organizat ion Details LastModified Time Tobacco Smoking Status Former Smoker Not Available [facility] 07/15/2022 08:18:59 What Is Your Level Of Alcohol Consumption? Occasional [id number] Information not available 07/15/2022 What Is Your Level Of Caffeine Consumption? Occasional [id number].[id number] Information not available 07/15/2022 In The 14 Days Before Symptom Onset, Have You Had Close Contact With A Laboratory-confir med COVID-19 While That Case Was Ill? No [id number].[id number] Information not available 07/15/2022 In The 14 Days Before Symptom Onset, Have You Had Close Contact With A Person Who Is Under Investigation For COVID-19 While That Person Was Ill? No [id number].[id number] Information not available 07/15/2022 What Type Of Diet Are You Following? REGULAR MIGRATION.43535 [id number] Information not available 07/15/2022 When Did You Quit Smoking? 1-5yearssincel silvinopravinashley 1.5 Years Ago MIGRATION.05420 [id number] Information not available 07/15/2022 Have You Ever Been Counseled For Unhealthy Alcohol Use? No MIGRATION.93780 [id number] Information not available 07/15/2022 Do You Have Any Pets? No [email or web address] Information not available 09/02/2022 At What Age Did You Start Smoking Tobacco? 15 MIGRATION.19855 94224 Information not available 07/15/2022 Do You Use Any Illicit Or Recreational Drugs? No MIGRATION.24350 [id number] Information not available 07/15/2022 Has Tobacco Cessation Counseling Been Provided? No MIGRATION.93144 67093 Information not available 07/15/2022 Have You Recently Traveled Abroad? No MIGRATION.68744 48982 Information not available 07/15/2022 Do You Have Any Dietary Restrictions? No MIGRATION.13325 28528 Information not available 07/15/2022 Do You Or Have You Ever Used Any Other Forms Of Tobacco Or Nicotine? No MIGRATION.93726 09908 Information not available 07/15/2022 Sex: Unknown Functional Status Question Answer Note LastModified by Organizat ion Details LastModified Time What is your exercise level? None [id number] Information not available 07/15/2022 Mental Status None recorded. Family History Relationship Description Onset Age of this Age Resolved Age Notes LastModified by Organization Details LastModified Time Mother Myocardial infarction [id number] Not available 07/15/2022 08:19:32 Mother Non-function ing kidney [id number] Not available 07/15/2022 08:19:32 Brother Myocardial infarction MIGRATION.[id number] Not available 07/15/2022 08:19:32 Brother Malignant tumor of lung [id number] Not available 07/15/2022 08:19:32 Medical History Condition Response BLINDNESS N RHEUMATIC FEVER N BLADDER PROBLEMS N KIDNEY STONES N MRSA N OTHER # 1 N POLIO N LUNG DISEASE/DISORDER N RADIATION / CHEMOTHERAPY N COPD N Other # 2 N BLOOD DISEASES N SURGERY N EAR OR HEARING PROBLEMS N MUMPS N DEPRESSION (INCLUDING POST ) N FEMALE PROBLEMS / INFECTIONS N BOWEL PROBLEMS N STROKE/TIA N THYROID DISEASE N ULCERS N BENIGN PROSTATIC HYPERPLASIA N MEASLES N CERVICALGIA N TB SKIN TEST N MYOCARDIAL INFARCTION N PARAPELGIA N OBESITY N GERD/NAUSEA N ANEURYSM N URINARY/BLADDER/KIDNEY PROBLEMS N CORONARY ARTERY DISEASE (CAD) N MENIERE'S DISEASE N ADDICTION CONCERNS N ENDOMETRIOSIS N USE OF BLOOD THINNERS N SKIN PROBLEMS N EMPHYSEMA N GASTROINTESTINAL DISORDER N MUSCLE,JOINT OR BONE PROBLEMS N GASTROINTESTINAL BLEEDING N BLOOD CLOTS N ASTHMA N CATARACTS N ERECTILE DYSFUNCTION N GI PROBLEMS N CHF N Low Testosterone N NEUROPATHY N INFERTILITY N AIDS/HIV N FRACTURES N CHEMOTHERAPY / RADIATION N VISION/EYE PROBLEMS N LIVER DISEASE N MALE HYPOGONADISM N HYPERTENSION N ANXIETY DISORDER N BLOOD TRANSFUSION N ANEMIA/BLOOD DISORDER N CHRONIC EAR INFECTIONS N BRONCHITIS N TUBERCULOSIS N GLAUCOMA N FOOT PROBLEM N DIVERTICULITIS N CHICKENPOX N SLEEP APNEA N ALLERGIES/HAYFEVER N INFECTIOUS DISEASE N HEART ARRHYTHMIA N PROSTATE N INSOMNIA N HIGH CHOLESTEROL / HYPERLIPIDEMIA N HYPERTHYROIDISM N EYE PROBLEMS N EATING DISORDER N NEUROLOGICAL PROBLEMS N EDEMA N CHRONIC PAIN SYNDROME N HYPOTHYROIDISM N CAROTID BLOCKAGE N CONSTIPATION N BACK / NECK PROBLEMS N HAVE YOU BEEN HOSPITALIZED OR SEEN IN [facility] IN THE PAST YEAR ? N ATHEROSCLEROSIS N BREAST PROBLEMS N DIALYSIS N ECZEMA N HISTORY WITH COMPLICATIONS WITH ANESTHES IA ? N FIBROMYALGIA N OSTEOPOROSIS N ARTHRITIS N NO SIGNIFICANT PAST MEDICAL HISTORY N APPENDICITIS N DIABETES, TYPE N BAD TEETH N HEARTBURN / REFLUX N ADD/ADHD N AUTISM SPECTRUM DISORDER (ASD) N HEPATITIS / LIVER DISEASE N PULMONARY DISEASE N GOUT N SLEEP DISORDER N ALZHEIMER'S DISEASE N PAIN N HERPES N DEMENTIA N HEADACHES/MIGRAINES N SEIZURES/EPILEPSY N VASCULAR DISEASE N PACEMAKER N DIZZINESS N HEART DISEASE/HEART PROBLEMS N KIDNEY DISEASE N DEVELOPMENTAL OR BEHAVIORAL DISORDERS N MULTIPLE SCLEROSIS N SCARLET FEVER N MENTAL DISORDER/ILLNESS N CARDIAC ARRHYTHMIA N CANCER: SPECIFY N PNEUMONIA N ATRIAL FIBRILLATION N Gall Stones N PULMONARY EMBOLISM N AUTOIMMUNE DISEASE N Gynecological HistoryNo gynecological history recorded. Obstetrics History GPAL:G 0 P 0 0 0 0 Immunizations Vaccine Type Date Status Note Provider Nam e and Address Organization Details Recorded Time COVID-19, mRNA, LNP-S, PF, 100 mcg/0.5mL dose or 50 mcg/0.25mL dose 1 completed Not Available [facility] 07/15/2022 08:30:31 COVID-19, mRNA, LNP-S, PF, 100 mcg/0.5mL dose or 50 mcg/0.25mL dose 1 completed Not Available [facility] 07/15/2022 08:30:31 Influenza, split virus, quadrivalent, preservative 0 completed Not Available [facility] 07/15/2022 08:30:32 Influenza, split virus, trivalent, preservative 4 completed Not Available [facility] 07/15/2022 08:30:32 Tdap 4 completed Not Available [facility] 07/15/2022 08:30:32 Influenza, high-dose, quadrivalent, PF 2 completed Not Available [facility] 07/15/2022 08:30:32 Influenza, split virus, quadrivalent, PF 9 completed Not Available [facility] 07/15/2022 08:30:33 pneumococcal polysaccharide PPV23 9 completed Not Available [facility] 07/15/2022 08:30:33 Influenza, split virus, quadrivalent, preservative 5 completed Not Available [facility] 07/15/2022 08:30:33 Tdap 4 completed Not Available [facility] 07/15/2022 08:30:33 Influenza, split virus, trivalent, PF 4 completed Not Available [facility] 07/15/2022 08:30:33 Past Encounters Encounter ID Performer Location Encounter Start Date Encounter Closed Date Diagnosis/Indication Diagnosis SNOMED-CT Code Diagnosis ICD10 Code Diagnosis Note [id number] [facility] [place] [address] [place] [address] 07/22/2020 00:00:00 07/22/2020 19:48:55 [id number] [facility] [place] [address] [place] [address] 08/08/2020 00:00:00 08/08/2020 14:27:25 [id number] [facility] [place] [address] [place] [address] 10/16/2020 00:00:00 10/16/2020 15:58:33 [id number] [facility] [place] [address] [place] [address] 02/03/2021 00:00:00 02/03/2021 13:40:52 [id number] [facility] [place] [address] [place] [address] 04/18/2021 00:00:00 04/18/2021 16:02:05 [id number] [facility] [place] [address] [place] [address] 05/29/2021 00:00:00 05/29/2021 13:30:29 [id number] [facility] [place] [address] [place] [address] 08/11/2021 00:00:00 08/11/2021 12:27:27 [id number] [facility] [place] [address] [place] [address] 09/22/2021 00:00:00 09/22/2021 16:04:46 [id number] [facility] [place] [address] [place] [address] 11/06/2021 00:00:00 11/06/2021 12:20:44 [id number] [facility] [place] [address] [place] [address] 02/18/2022 00:00:00 02/18/2022 14:33:47 [id number] [facility] [place] [address] [place] [address] 03/04/2022 00:00:00 03/04/2022 12:57:19 [id number] [facility] [place] [address] [place] [address] 03/25/2022 00:00:00 03/25/2022 16:45:27 [id number] [facility] [place] [address] [place] [address] 07/06/2022 00:00:00 07/06/2022 15:15:47 [id number] [facility] [place] [address] [place] [address] 09/02/2022 10:05:34 09/02/2022 10:58:06 Severe chronic obstructive pulmonary disease 211093027 J44.9 PFT 04/2021 with severe obstructio n, in chartConti nue Trelegy Ellipta 200Re-inst ructed on techniqueC ontinue Albuterol PRN.She is aware of indication s for useOxygen at 2 liters with sleep - CARL[place]TA WNL in chartAlpha 1 MM normalResu me pulmonary rehab when improvedPL ans to repeat PFT when at baselineRT C in 3 months, PRN for concerns Multiple n odules of lung 670593228 R91.[address] chest, very small, less than 3 mm (per dictation, I do not have CD).Associ ated with mucous pluggingIn crease frequency of flutter valveNo adenopathy Repeat due 04/2022 with resolution of nodules Dependence on supplemental oxygen 3973757904 07 Z99.81 2 liters with sleep, discussed 100% compliance and the risks of hypoxia including deathLast walk test 04/2021 was WNL. 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.9 IGG subclasses low, also with elevated IGEHas seen Dr Samuel Environmental allergy 42 3124641 T78.49XD IGG1 and 2 slightly low.IGE elevated and RAST with reactions to dust mites and cats.She is aware to take allergy pill dailyConti jose antonio doshi [facility] Samuel, I have encouraged her to make follow up appointmen t Ex-smoker [id number] Z87.89 1 Repeat screening due 04/2023 [id number] MITZY Ahumada [facility] [place] [address] [place] [address] 09/24/2022 11:07:21 09/24/2022 15:44:12 Acute exacerbation of chronic obstructive pulmonary disease 854861640 J44.1 Has completed one round of prednisone and AugmentinC OVID testing negativeSy mptoms persistNeb ulizer v0oHpzsanz Tessalon PRNPrednis one and cipro - she tells me she has had this previously with no reactionHy drate - monitor urine output and colorRestD iscussed S/S that require emergency evaluation Severe chr onic obstructive pulmonary disease 596406361 J44.9 PFT 04/2021 with severe obstructio n, in chartConti nue Trelegy Ellipta 200Continu e AlbuterolS he is aware of indication s for useOxygen at 2 liters with sleep - CARLOTTA WNL in chart [id number] Alexandra Alvarez, [facility] [place] [address] [place] [address] 03/03/2023 11:25:21 03/03/2023 12:15:20 Severe chronic obstructive pulmonary disease 423775007 J44.9 PFT 04/2021 with severe obstructio n, in chartConti nue Trelegy Ellipta 200Continu e Albuterol PRN.She is aware of indication s for useShe has nebulizer for PRN useOxygen at 2 liters with sleep - [place] WNL in chartAlpha 1 MM normalResu me pulmonary rehab when improvedPl ans to repeat PFT when at baselineAd vised vaccines this fall Multiple n odules of lung 047191520 R91.[address] chest, very small, less than 3 mm (per dictation, I do not have CD).Associ ated with mucous pluggingIn crease frequency of flutter valveNo adenopathy Repeat due 04/2022 with resolution of nodulesCT 08/2022:Mi ld emphysema No nodule, mass or enlarged lymph nodes Dependence on supplemental oxygen 2561008116 07 Z99.81 2 liters with sleep, discussed 100% compliance and the risks of hypoxia including deathLast walk test 04/2021 was WNL, although she did desaturate to 88% transientl yPlans to re-walk when at baselineSa turations 96% today RA at rest Immunoglob ulin deficiency 947007806 D80.9 IGG subclasses low, also with elevated IGEHas seen Dr Samuel with evaluation Environmental allergy 42 0459824 T78.49XD IGG1 and 2 slightly low.IGE elevated and RAST with reactions to dust mites and cats.Aller gy pill dailyConti jose antonio doshi tEst[facility] Samuel Ex-smoker [id number] Z87.89 1 Quit smoking 2 years agoCT as detailed aboveRepea t screening due 08/2023 Health Concerns Section Related Observation LastModified by Organization Detai ls LastModified Time None Recorded Concern Status LastModified by Organization Details LastModified Time None Recorded Advance Directives Directive None Recorded Payers Encounter Date Sequence Insurance Name Policy Number Policy Alejandro Covered Member ID Alejandro Member ID Guarantor Name 09/02/2022 1 [place] Gloria S Mariama Reyes [id number] Gloria S Mariama-Reyes 09/02/2022 2 [place] [id number] Gal V Reyes [id number] Gloria S Mariama-Reyes 09/24/2022 1 [place] Gloria S Mariama Reyes [id number] Gloria S Mariama-Reyes 09/24/2022 2 [place] [id number] Gal V Reyes [id number] Gloria S Mariama-Reyes 03/03/2023 1 [place] Gloria S Mariama Reyes [id number] Gloria S Mariama-Reyes 03/03/2023 2 [place] [id number] Gal V Reyes [id number] Gloria S Mariama-Reyes Notes Date Note Type Note Provider Name and Address Organization Details Recorded Time 3 text/html Ms Leslie presents today to follow up on COPD, dyspnea, chronic cough, oxygen dependence, referrals and testing.Remains on Trelegy Ellipta 200 one puff daily with good clinical benefitHas not increased albuterol use, estimates use at 4-6x monthlyHas been using her flutter valveHas persistently intermittent cough, but this is not activity limiting or overly productiveDenies wheezing and chest painHas not seen as400 programmer analyst recentlyNo hemoptysis or unintentional weight loss.Respiratory symptoms are not waking her at night.Mild sinus congestionCompliant with oxygen, she has good use and clinical benefit MITZY Ahumada [address], [place], [address], [employer] 09/02/2022 14:58:43 3 text/html Gloria presents today via [employer] for sick visitShe has had respiratory symptoms since late AugustHad Augmentin and Prednisone with improvement but then symptoms worsened after they were completedCurrently with fatigue, weakness.Cough is harsh, increased, productiveSinus congestion and headacheThroat is soreChest feels tender from coughing but she denies lyndon chest pain.No fever this morning but has had chills over the past few days, wakes up sweaty.No known sick contacts MITZY Ahumada [address], [place], [address], [employer] 09/24/2022 14:57:06 3 text/html Ms Leslie presents today to follow up on COPD, dyspnea, chronic cough, oxygen dependenceRemains on Trelegy Ellipta 200 one puff daily with good clinical benefitAdmits to occasionally forgetting her doseHas not increased albuterol use, estimates use at 4-6x monthlyShe does have activity intolerance, especially with stairs and rushing to get things done.THis is a baseline for her.Has been using her flutter valve consistentlyHas persistently intermittent cough, but this is not activity limiting or overly productiveDenies wheezing and chest painNo hemoptysis or unintentional weight loss.Respiratory symptoms are not waking her at night.Mild sinus congestion has increased - complains of some pressure and intermittent headacheAlso with some increase in mucous productionCompliant with oxygen, she has good use and clinical benefitNo respiratory exacerbation since September 2022 MITZY Ahumada [address], [place], [address], [employer] 03/03/2023 13:51:01 OBGyn Episode No OBEpisode recorded.
[2024-06-28 14:52] VITALS: BP 131/72; PULSE 95; RESP 18; TEMP 36.7; O2SAT 97
--- NOTE | 2024-06-28 15:01 | ED_ITS ---
HPI - General Adult General Chief complaint: Upper Respiratory Infection Stated complaint: Sore throat / Bilateral Ear Pain Time Seen by Provider: 06/28/24 15:02 Source: patient Mode of arrival: ambulatory Limitations: no limitations History of Present Illness HPI narrative: Here for sore throat and ear pain. Jazmin is a 68-year-old female with a history of COPD. She presents today with a 5-6 day history of headache, bilateral ear pain, sore throat, cough, body aches, sweats/ chills, and nausea. She has had increased wheezing and albuterol use for the last 5 days. She continues on her routine medications including her Trelegy, her albuterol inhaler, and her nebulizer treatments with some relief. She reports a productive cough and coughing up a lot of phlegm that she describes as gross, white, and yellow. She reports shortness of breath and wheezing for the last 5 days. She denies nausea and vomiting. She reports she has been able to stay hydrated and drink. All other systems reviewed and negative unless otherwise noted in HPI and below. Related Data Allergies Allergy/AdvReac Type Severity Reaction Status Date / Time levofloxacin Allergy Severe could not Verified 06/28/24 14:48 breathe and hives Iodinated Contrast Media Allergy Unknown Unknown Verified 06/28/24 14:48 Sulfa (Sulfonamide Allergy Unknown SWELLING Verified 06/28/24 14:48 Antibiotics) codeine AdvReac Unknown MELENDEZ Verified 06/28/24 14:48 Contrast Media Allergy Mild HEART Uncoded 06/15/24 11:40 PALPATION Review of Systems Review of Systems: CONSTITUTIONAL: Denies fever. Reports chills and sweats. Reports body aches. EYES: Denies visual changes, redness, or discharge. ENT: Denies rhinorrhea. Reports congestion, sore throat, and otalgia. CARDIOVASCULAR: Denies chest pain, palpitations, or edema. RESPIRATORY: Reports cough and dyspnea. Cough is productive. Increased albuterol use x5-6 days. Reports wheezing. GASTROINTESTINAL: Denies abdominal pain. Reports nausea. Denies vomiting or diarrhea. GENITOURINARY: Denies dysuria or hematuria. SKIN: Denies rash or itching. MUSCULOSKELETAL: Denies back pain, joint pain, or myalgia. NEUROLOGIC: Reports headache. Denies numbness, or weakness. PSYCHIATRIC: Denies anxiety or depression. All other systems reviewed are negative, except as documented in HPI. 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 GERD (gastroesophageal reflux disease) Rectal polyp Diverticulosis Sleep apnea Pneumonia Bronchitis Migraines Obesity Renal impairment Chronic obstructive pulmonary disease Surgical History Surgical History History of orthopedic surgery left leg fracture with jacky placement H/O: hysterectomy Hx of cholecystectomy History of appendectomy Family History Family History Mother Family history of malignant neoplasm of kidney Sibling Lung cancer Heart disease Grandparent Heart disease Other Diabetes mellitus Family history of elevated blood lipids Family history of lung cancer Hypertension Social History Social History Smoking status: Former smoker Alcohol intake: current Alcohol use details: every 6 months Substance use: never Substance use type: does not use Lack of Transportation: No Lack of Food: Never True Current Housing: I Have Housing Concerned About Future Housing: No Difficulty Paying Gas/Electric Bills: Decline to Answer Difficulty Paying for Meds: Decline to Answer Currently Unemployed: Decline to Answer Education: Decline to Answer Difficulty w/ Childcare or Family Care: Decline to Answer Living arrangements: with family Occupation/Education: retired Gender identity (if verbalized by the patient): Female Agree to blood products: Yes Comments At time of signature, I have reviewed and agree with nursing past medical, surgical, social and family history unless otherwise noted. Please see nursing chart for further information. There is no relevant family history pertinent to the presenting complaint. Exam Narrative: GENERAL: This is a well-nourished, well-developed patient, in no apparent distre ss. +acutely ill HEAD: normocephalic, atraumatic. EYES: Sclera clear/white. Vision is grossly intact. EARS: External ears normal, auditory canal on left clear and without drainage; Right TM cerumen impaction. Left TMs with slight erythema without perforation. Right TM not visible. Hearing grossly intact. NOSE: External nose normal with no obvious nasal discharge. nares with redness and rhinorrhea. THROAT: Mucous membranes moist, posterior pharynx erythema noted. No exudate. NECK: Neck supple, non-tender without lymphadenopathy. CARDIOVASCULAR: Regular rate and rhythm without murmurs, gallops, or rubs. RESPIRATORY: Inspiratory and Expiratory wheezing in bilateral full vázquez with diminished LS in bases. +productive cough. Wheezing audible without stethoscope. SKIN: warm, Dry, intact with no suspicious lesions or rash, good texture and turgor. NEURO: awake, alert, and oriented to person, place and time. There were no obvious focal neurologic abnormalities. EXTREMITIES: No joint tenderness, effusion, or edema noted. Course Course Emergency Course: Patient is aware of diagnosis, understands and agrees to treatment plan. Anticipatory guidance was given. Patient agrees to follow-up as directed and is aware of reasons to seek care at the emergency department. Please be advised this is a medical document. It is intended for [id number] communication. It is written in medical language and may contain unfamiliar abbreviations or verbiage. Medical documents are intended to carry relevant information, facts as evident, and the clinical opinion of the practitioner at the time of the encounter. This report may have been done utilizing a voice recognition system. Attempts have been made to correct errors. However, there may be uncorrected grammatical, spelling, and recognition errors present. The file time of this note does not necessarily represent the time the patient was seen. Level of Care: Express Care Visit Vital Signs Vital signs: Vital Signs Temperature 36.7 C 06/28/24 14:52 Pulse Rate 95 06/28/24 14:52 Respiratory Rate 18 06/28/24 14:52 Blood Pressure 131/72 06/28/24 14:52 Pulse Oximetry 97 06/28/24 14:52 Oxygen Delivery Room Air 06/28/24 14:52 Temperature 36.7 C 06/28/24 14:52 Pulse Rate 94 06/28/24 15:35 Respiratory Rate 22 H 06/28/24 15:35 Blood Pressure 131/72 06/28/24 14:52 Pulse Oximetry 99 06/28/24 15:35 Oxygen Delivery Room Air 06/28/24 14:52 reviewed. Procedures Ear Wax Removal Right Ear: Ear Wax Removal Date: 06/28/24 Ear Wax Removal Time: 15:30 Cerumenolytic Used: other Results: Re-examined: some cerumen remains and removal reattempted (after Debrox) TM Examination: other (Right TM not visible after irrigation, Debrox instillation, and then repeat irrigation) Ear Canal Exam: atraumatic Patient Tolerated Procedure: well and no complications Complications: no problems Technique: ear canal irrigated and ear canal curetted Additional Comments: Provided patient instructions to continue Debrox and follow up with PCP in one week for further ear wax removal. Medical Decision Making MDM Narrative Medical decision making narrative: Patient's flu, COVID and rapid strep test were negative today. Chest x-ray was performed demonstrating atelectasis today. She received a Duoneb today for wheezing. After Duoneb, lung sounds were improved with no audible wheezing. Right ear cerumen impaction today. Ear was irrigated twice and Debrox was used. She will follow up with PCP for further cerumen removal. Differential Diagnosis Differential Diagnosis: Pneumonia versus COPD exacerbation versus flu/ COVID/ URI Vital Signs Vital Signs: Vital Signs Temperature 36.7 C 06/28/24 14:52 Pulse Rate 95 06/28/24 14:52 Respiratory Rate 18 06/28/24 14:52 Blood Pressure 131/72 06/28/24 14:52 Pulse Oximetry 97 06/28/24 14:52 Oxygen Delivery Room Air 06/28/24 14:52 Temperature 36.7 C 06/28/24 14:52 Pulse Rate 94 06/28/24 15:35 Respiratory Rate 22 H 06/28/24 15:35 Blood Pressure 131/72 06/28/24 14:52 Pulse Oximetry 99 06/28/24 15:35 Oxygen Delivery Room Air 06/28/24 14:52 Reviewed. Lab Data Labs: Lab Results 06/28/24 06/28/24 Range/Units 15:03 15:10 POC Influenza A Ag Negative (Negative) POC Influenza B Ag Negative (Negative) POC SARS CoV-2 Ag Negative (Negative) POC Grp A Strep Screen Negative (Negative) Reviewed. Imaging Data My impression: Agree with Radiologist. Radiologist's impression: EXAMINATION: XR chest 2V DATE: 06/28/2024 15:22 INDICATION: Wheezing. TECHNIQUE: Frontal and lateral views of the chest were obtained. COMPARISON: Chest 2 views 05/26/2023 FINDINGS: There is mild atelectasis in right mid and lower lung zones. No pleural effusion or pneumothorax. The heart size is normal. IMPRESSION: 1. Mild atelectasis in right mid and lower lung zones. Discharge Plan Discharge Clinical Impression: COPD exacerbation, Cerumen impaction, Atelectasis of right lung Patient Disposition: Home, Self-Care Condition: Stable Instructions: Antibiotic Form, COPD (Chronic Obstructive Pulmonary Disease) (DC), Earache (ED), Atelectasis (ED) Additional Instructions: You were diagnosed today with an exacerbation of your COPD. Your flu, COVID, and strep test were negative today. Your strep culture was sent and we will contact you with results. Your chest x-ray showed right-sided atelectasis today. You were prescribed medications to treat your symptoms. Please take medications as prescribed and follow printed instructions provided. You can also use Tylenol and ibuprofen [id number] as directed on the packaging and as needed. You should follow-up with your primary care provider in 1 week. If you have increased trouble breathing, shortness of breath, symptoms not improving with albuterol, or any other concerns, you should go to the emergency room. Patient Language: Armenian Prescriptions: New prednisone 50 mg tablet 50 mg PO DAILY Qty: 5 0RF amoxicillin-pot clavulanate 875-125 mg tablet 1 tablet PO Q12H 5 Days Qty: 10 0RF benzonatate 200 mg capsule 200 mg PO TID PRN (Reason: cough) Qty: 30 0RF No Action tamsulosin [Flomax] 0.4 mg capsule 0.4 mg PO DAILY 5 Days Qty: 5 0RF hydrocodone-acetaminophen 5-325 mg tablet 1 tablet PO Q8H PRN (Reason: pain) 3 Days Qty: 9 0RF phentermine 15 mg capsule 15 mg PO DAILY Qty: 30 1RF Rx Instructions: must administer 2 hours after breakfast ergocalciferol (vitamin D2) 1,250 mcg (50,000 unit) capsule 50,000 unit PO WEEKLY Qty: 12 1RF fluticasone propionate 50 mcg/actuation spray,suspension See Rx Instructions .ROUTE .COMPLEX Qty: 16 3RF Dose Instruction: SPRAY 2 SPRAYS INTRANASALLY DAILY ADMINISTER INTO EACH NOSTRIL Rx Instructions: SPRAY 2 SPRAYS INTRANASALLY DAILY ADMINISTER INTO EACH NOSTRIL albuterol sulfate 90 mcg/actuation HFA aerosol inhaler 1 puff inhalation Q4H PRN (Reason: shortness of breath or wheezing) Qty: 8.5 6RF Trelegy Ellipta 200-62.5-25 mcg blister with device See Rx Instructions .ROUTE .COMPLEX Qty: 60 6RF Dose Instruction: INHALE 1 PUFF BY MOUTH EVERY 24 HOURS Rx Instructions: INHALE 1 PUFF BY MOUTH EVERY 24 HOURS Follow-up/Referrals: Pamela Araiza APRN [Primary Care Provider] - Time of Disposition: 16:09
[2024-06-28 15:04] LABS: EDSTREPNEGPOS1 Negative (Negative)
[2024-06-28 15:11] LABS: EDCOVIDSCREEN Negative (Negative); EDINFLUASCREEN Negative (Negative); EDINFLUBSCREEN Negative (Negative)
[2024-06-28] MEDS: IPRATROPIUM 0.5 MG/ALBUTEROL SULFATE 2.5 MG AMPUL.NEB 3 ML INHALATION (15:21)
[2024-06-28 15:22] VITALS: PULSE 89; RESP 22; O2SAT 97
[2024-06-28 15:35] VITALS: PULSE 94; RESP 22; O2SAT 99
[2024-06-28] MEDS: CARBAMIDE PEROXIDE 6.5% OT SOLN 15 ML BTL 5 DROP RIGHT EAR (15:47)
== END 2024-06-28 16:14 | disposition home or self-care (01) ==
PROVIDERS: Emergency Provider Nurse Practitioner; PCP Nurse Practitioner Adult Health
DX: J44.1 Chronic obstructive pulmonary disease with (acute) exacerbation (principal); H61.21 Impacted cerumen, right ear; J98.11 Atelectasis; Z20.822 Contact with and (suspected) exposure to COVID-19; E11.9 Type 2 diabetes mellitus without complications; K21.9 Gastro-esophageal reflux disease without esophagitis; E66.9 Obesity, unspecified; Z68.34 Body mass index [BMI] 34.0-34.9, adult; M19.90 Unspecified osteoarthritis, unspecified site; Q63.1 Lobulated, fused and horseshoe kidney
CPT/HCPCS: 69210; 71046; 87081; 87426; 87804; 87880; 99213; A9270; G0463

== ENCOUNTER 2024-07-11 11:13 | Outpatient (CLI) | payer MEDICARE, BC, SELFPAY ==
--- NOTE | ~2024-07-11 | XR_ITS ---
CHEST RADIOGRAPH, PA AND LATERAL CLINICAL HISTORY: Follow up - Cough, congestion - COPD . COMPARISON: 06/28/2024 TECHNIQUE: PA and lateral views of the chest. FINDINGS The cardiomediastinal silhouette is unremarkable. Improved aeration of the bilateral lung vázquez when compared with previous examination dated . The remainder of the lungs are clear. Visualized osseous structures and soft tissues are unremarkable. IMPRESSION: No focal infiltrate or effusion. Reviewed, dictated and finalized at location A. SPEED PRINTER OPERATOR
--- OUTSIDE RECORDS SUMMARY | 2024-07-11 13:22 | XMS_ITS | Encounter Summary ---
Author Organization [facility] Address [facility] [place] [address] Care Team Providers Care Travel Freight And Passenger Agent Name Role Phone Pamela Araiza NP Primary Care Provider [phone] Encounter Details Date Type Department Care Team ([facility] st Contact Info) Description 10/22/2018 Abstract [facility] CONVERSION [address] [place] [address] , Generic Conversion, Social History Tobacco Use [...] on filedocumented in this encounter Care Teams Travel Freight And Passenger Agent Relationship Specialty Start Date End Date Pamela Araiza NP [address] [place] [address] PCP - General NURSE PRACTITIONER 09/14/19 documented as of this encounter
--- OUTSIDE RECORDS SUMMARY | 2024-07-11 13:22 | XMS_ITS | CONTINUITY OF CARE DOCUMENT ---
Author Name tera haley Address Unknown Organization [facility] Address [address] [place] [address] Phone [phone] Care Team Providers Care Topographical Surveyor Name Role Phone Phillip CHACKO, Michael Unavailable [phone]AN Unavailable [phone] JOHNATH[address] DOAN Unavailable INSURANCE PROVIDERS Payer name Policy type / Coverage type [place] red green party ID [facility] Blue [facility] [id number] [place] MEDICARE Medicare [id number]
--- OUTSIDE RECORDS SUMMARY | 2024-07-11 13:22 | XMS_ITS | Referral Summary ---
Author Organization [facility] Address [address] [place] [address] Care Team Providers Care Indoor Landscaper/Gardener Name Role Phone Pamela Araiza NP Primary Care Provider Allergies Active Allergy Reactions Criticality Noted Date [...] Date Resolved Date Hyperglycemia 10/25/2018 07/23/2022 Immunizations Immunization Administration Dates Next Due Hib (PRP-OMP) 10/30/2021 [...] on file Legal Sex Female 7:54 AM PERSONALIZED LIVING ASSISTANT Gender Identity Not on file Sexual Orientation Not on file Last Filed Vital Signs Vital Sign Reading Time Taken Comments Blood Pressure 152/98 11/26/2022 3:57 PM CDT Pulse 53 09/30/2022 10:21 AM CDT Temperature 36.3 C (97.3 F) 07/23/2022 10:25 AM PERSONALIZED LIVING ASSISTANT Respiratory Rate 16 07/23/2022 10:25 AM PERSONALIZED LIVING ASSISTANT Oxygen Saturation 95% 09/30/2022 10:21 AM CDT Inhaled Oxygen Concentration - - Weight 72.6 kg (160 lb) 09/30/2022 10:21 AM CDT Height 149.9 cm (4' 11 ) 09/30/2022 10:21 AM CDT Body Mass Index 32.32 09/30/2022 10:21 AM CDT Plan of Treatment Not on file Insurance MEDICARE MEDICARE [facility] MEDICARE [facility] MEDICARE [facility] Care Teams Indoor Landscaper/Gardener Relationship Specialty Start Date End Date Pamela Araiza NP [facility] [place] [address] PCP - General Nurse Practitioner 11/26/22
--- OUTSIDE RECORDS SUMMARY | 2024-07-11 13:22 | XMS_ITS | Clinical Summary ---
Author Organization [facility] Address [address] [place] [address] Care Team Providers Care Tar Man Name Role Phone Pamela Araiza NP Primary Care Provider [phone] Allergies Active Allergy Reactions Criticality Noted Date [...] on file Legal Sex Female 7:54 AM SCREEN MACHINE OPERATOR Gender Identity Not on file Sexual Orientation Not on file Obstetrics History Last Filed Vital Signs Vital Sign Reading Time Taken Comments Blood Pressure 152/98 11/26/2022 3:57 PM CDT Pulse 53 09/30/2022 10:21 AM CDT Temperature 36.3 C (97.3 F) 07/23/2022 10:25 AM SCREEN MACHINE OPERATOR Respiratory Rate 16 07/23/2022 10:25 AM SCREEN MACHINE OPERATOR Oxygen Saturation 95% 09/30/2022 10:21 AM CDT [...] Completed 022, 04/10/2020, 06/07/2018 Insurance MEDICARE [facility]ICARE [facility] MEDICARE [facility] Care Teams [place] Relationship Specialty Start Date End Date Pamela Araiza NP [facility] [place] [address] PCP - General Nurse Practitioner 11/26/22
--- OUTSIDE RECORDS SUMMARY | 2024-07-11 13:23 | XMS_ITS | Clinical Summary ---
Author Organization [facility] Address [facility] [place] [address] Care Team Providers Care Welder Repair Name Role Phone Jose G Pamela BYRON Primary Care Provider [phone] Allergies Active Allergy Reactions Criticality Noted Date [...] Active vitamin D3, cholecalciferol , 1.25 MG (83276 UT) capsule Take 50,000 Units by mouth [...] Comments Blood Pressure 140/82 07/05/2023 4:11 PM CARTRIDGE BELT PUNCHER Pulse 80 07/05/2023 4:11 PM CARTRIDGE BELT PUNCHER Temperature 36.5 C (97.7 F) 07/05/2023 4:11 PM CARTRIDGE BELT PUNCHER Respiratory Rate 20 07/05/2023 4:11 PM CARTRIDGE BELT PUNCHER Oxygen Saturation 96% 07/05/2023 4:11 PM CARTRIDGE BELT PUNCHER Inhaled Oxygen Concentration - - Weight 73.9 kg (163 lb) 07/05/2023 4:11 PM CARTRIDGE BELT PUNCHER Height 144.8 cm (4' 9 ) 07/05/2023 4:11 PM CARTRIDGE BELT PUNCHER Body Mass Index 35.27 07/05/2023 4:11 PM CARTRIDGE BELT PUNCHER Plan of Treatment Health Maintenance Due Date Last Done Comments Colorectal Cancer Screening Colonoscopy ( Years) 1953 PHQ-2 (Physician [place]) 1965 Mammogram Screening 1993 RSV Immunization or [...] 03/12/2019, 06/07/2018, Additional history exists PHQ-2 (Physician [place]) 05/17/2024 Pneumococcal Vaccine: 65+ Years Completed 11/06/2021, [...] age to complete this topic Insurance MEDICARE [facility] Care Teams Welder Repair Relationship Specialty Start Date End Date Pamela Araiza NP [address] [place] [id number] PCP - General NURSE PRACTITIONER 09/14/19
== END 2024-07-11 11:14 | disposition home or self-care (01) ==
PROVIDERS: PCP Nurse Practitioner Adult Health; Visit Provider Nurse Practitioner Adult Health
DX: J44.1 Chronic obstructive pulmonary disease with (acute) exacerbation (principal)
CPT/HCPCS: 71046

== ENCOUNTER 2024-07-21 12:38 | Outpatient (CLI) | payer MEDICARE, BC, SELFPAY ==
--- NOTE | ~2024-07-21 | CT_ITS ---
EXAMINATION:CT lung screening DATE: 07/21/2024 13:42 INDICATION: Personal history of nicotine dependence. TECHNIQUE: Computed tomography (CT) of the chest was performed without intravenous contrast. Automate d exposure control and iterative reconstruction technique were employed. The dose-length product (DLP ) was 74.17 mGy-cm. COMPARISON: Chest CT 05/14/2021 FINDINGS: The lungs demonstrate mild emphysema. There is mild atelectasis bilaterally. There is a clu ster of tree-in-bud opacities in right upper lobe, likely infectious/inflammation. No pleural effusio n. The heart size is normal. Again seen is a small pericardial effusion. There are gallstones in the gallbladder, which is normal in size. There is a 3.1 cm mass in left adrenal gland measuring low atte nuation, consistent with an adenoma. There is moderate thoracic spondylosis. There is mild chronic an terior wedging of multiple mid thoracic vertebral bodies. IMPRESSION: 1. Lung-RADS category 2: Benign appearance or behavior. Continue annual screening with noncontrast lo w-dose chest CT in 12 months. Reviewed, dictated and finalized at location A. HOUSE LOGISTICS MANAGER IMPRESSION: 1. Lung-RADS category 2: Benign appearance or behavior. Continue annual screeni ng with noncontrast low-dose chest CT in 12 months.
--- OUTSIDE RECORDS SUMMARY | 2024-07-21 12:58 | XMS_ITS | Data Portability ---
Author Organization [place] [facility], Main Office Address [address] [place] [address] Care Team Providers Care Nursing Program Coordinator Name Role Phone JOHNATHON VALENTINE Primary Care Provider JOHNATHON VALENTINE Referring Provider [phone] Assessment Encounter Date Assessment Date Assessment LastModified [...] other to discuss the following: Google Meet [email or web address] Not available 09/24/2022 12:32:24 Plan of Treatment Reminders Order Date Submit Date Provider Last Modified By Organization Details Last Modified Time Details Appointments None recorded. Lab None recorded. Referral None recorded. Procedures None recorded. Surgeries None recorded. Imaging None recorded. Medication Orders Trelegy Ellipta 200 mcg-62.5 mcg-25 mcg powder for inhalation 2022 023 [facility]/Pharmacy #7030, [address] [place] [address], [address], 13:50:43 albuterol sulfate HFA 90 mcg/actuati on aerosol inhaler 2022 023 [facility]/Pharmacy #6926, [address], [address], 13:50:44 albuterol sulfate 2.5 mg/3 mL (0.083 %) solution for nebulizatio n 2022 023 [facility] [address], [address], 3 13:50:44 prednisone 20 mg tablet 2022 023 [facility]/Pharmacy #6926, [address], [address], 3 12:29:34 ciprofloxac in 750 mg tablet 2022 023 [facility] [address], [address], 3 12:29:35 Tessalon Perles 100 mg capsule 2022 023 [facility] [address], [address], 12:29:36 Patient TargetsNo targets recorded. Patient Instructions Encounter Date Encounter Id Patient Instructions Last Modified By Organization Details Last Modified Time 09/24/2022 [id number] Due to the COVID-19 (Novel Coronavirus) pandemic, it is within this context (and with the understanding that this method of patient encounter is in the patient s best interest as well as the health and safety of other patients and the public) that telehealth is being provided for this patient encounter rather than a mgyt-tf-lntz visit. This patient encounter is appropriate at [...] cient : 30-10 0 ng/mL Not Available [facility] (Lab) [address] [place], [address], 02/25/2022 12:15:21 02/25/2002/24/2022 HEMOG LOBIN A1C HA1C 5.8 % 4.0-6. 0 Diabe kel Scree althea Crite eleazar: <5.7% Consi stent with absen ce of diabe kel 5.7-6 .4% Consi stent with incre ased risk for diabe kel (pred iabet es) >OR=6 .5% Consi stent with diabe kel REFER ENCE: Diabe kel Care 2016, 39(Sauer ppl.1 ):s13 -s22 Not Available [facility] (Lab) [address] [place], [address], 02/24/2022 20:19:23 02/25/20 22 02/24/2022 TSH thyroid-stim ulating hormone 3.550 uIU/m L 0.465- 4.680 Not Available [facility] (Lab) [address] [place], [address], 02/24/2022 16:58:26 02/25/2002/24/2022 LIPID PANEL cholesterol 225 mg/dL 140-19 9 high NIH LORETO NSUS RECOM MENDA TION FOR NEDA STERO L: ADULT CHILD LOW RISK: <200 <170 BORDE RLINE : <200- 239 ----- HIGH RISK: >240 >200 Not Available [facility] (Lab) [address] [place], [address], 02/24/2022 15:46:19 02/25/2002/24/2022 LIPID PANEL triglyceride s 107 mg/dL 0-150 NIH LORETO NSUS REPOR T RECOM MENDA TION FOR TRIGL YCERI SARAH: ADULT CHILD LOW RISK: <150 ----- BODER LINE: 150-1 99 ----- HIGH RISK: >200 ----- Not Available [facility] (Lab) [address] [place], [address], 02/24/2022 15:46:19 02/25/2002/24/2022 LIPID PANEL HDL cholesterol 66 mg/dL 40- Not Available [facility] (Lab) [address] [place], [address], 02/24/2022 15:46:19 02/25/2002/24/2022 LIPID PANEL LDL cholesterol, [...] WILL NOT BE REPOR KAMLESH. Not Available [facility] (Lab) [address] [place], [address], 02/24/2022 15:46:19 02/25/20 22 02/24/2022 BASIC METAB OLIC PANEL sodium 141 mmol/ L 137-14 5 Not Available [facility] (Lab) [address] [place], [address], 02/24/2022 15:46:04 02/25/20 22 02/24/2022 BASIC METAB OLIC PANEL potassium 4.5 mmol/ L 3.5-5. 1 Not Available [facility] (Lab) [address] [facility] [place], [address], 02/24/2022 15:46:04 02/25/2002/24/2022 BASIC METAB OLIC PANEL chloride 108 mmol/ L 98-107 high Not Available [facility] (Lab) [address] [place], [address], 02/24/2022 15:46:04 02/25/2002/24/2022 BASIC METAB OLIC PANEL carbon dioxide 26 mmol/ L 22-30 Not Available [facility] (Lab) [address] [place], [address], 02/24/2022 15:46:04 02/25/2002/24/2022 BASIC METAB OLIC PANEL anion gap 11.5 mmol/ L 14-22 low Not Available [facility] (Lab) [address] [place], [address], 02/24/2022 15:46:04 02/25/20 22 02/24/2022 BASIC METAB OLIC PANEL glucose 88 mg/dL 70-99 Not Available [facility] (Lab) [address] [place], [address], 02/24/2022 15:46:04 02/25/20 22 02/24/2022 BASIC METAB OLIC PANEL BUN 14 mg/dL 8-19 Not Available [facility] (Lab) [address] [place], [address], 02/24/2022 15:46:04 02/25/20 22 02/24/2022 BASIC METAB OLIC PANEL creatinine 0.83 mg/dL 0.66-1 .25 Not Available [facility] (Lab) [address] [place], [address], 02/24/2022 15:46:04 02/25/20 22 02/24/2022 BASIC METAB OLIC PANEL GFR >60 Refer ence Range : [place] ge GFR Healt hy Adult : >60 [...] calcu lator is avail able on the [facility] websi te: [email or web address] :[email or web address] [email or web address] r_[email or web address] culat or Not Available [facility] (Lab) [address] [place], [address], 02/24/2022 15:46:04 02/25/20 22 02/24/2022 BASIC METAB OLIC PANEL calcium 9.4 mg/dL 8.4-10 .2 Not Available [facility] (Lab) [address] [place], [address], 02/24/2022 15:46:04 02/25/20 22 DEXA, axial skele ton [facility] [address] [place] [address] Patien t Name: JOSEFA DALEY YUSUF Cannon Access ion #: [id number] Sex: F : 1955 1 Locati [...] e of -1.7. Page 1 of 2 [facility] Lela miramontes Name: YUSUF REYES Access ion #: [id number] Sex: F : 1955 1 Exam [...] 2021 9:56 AM (CT) Dictat ed by: bAhinav ortez MD DD: 2021 9:56 AM (CT) DT: 2021 9:56 AM (CT) Page 2 of 2 [id number] [facility] (Imaging) [address] [place], [address], 07/15/2022 08:30:58 02/25/20 22 02/24/2022 bone densi ty No observ ation record ed. [id number] [facility] Add On Lab Orders [address] [place], [address], 07/15/2022 08:30:58 08/20/19 23 08/17/2022 CT, chest , w/o contr ast No observ ation record ed. [email or web address] Not Available 18:53:26 Result Notes None recorded. Problems Name Problem SNOMED Code Status Onset Date Resolution Date Notes Provider Name and Address Organization Details Recorded Time Acute bronchitis 54875661 Active 2021 Not Available [facility] 3 08:23:46 Ptosis of eyelid 29184258 Active 2021 Not Available [facility] 3 08:23:46 Abnormal thyroid hormone 728365125 Active 2018 Not Available [facility] 3 08:23:46 Chronic obstructiv e pulmonary disease 82281933 Active Not Available [facility] 3 08:23:47 Otalgia 12671011 Active 2021 Not Available [facility] 3 08:23:47 Laboratory test result abnormal 661748917 Active 2021 Not Available [facility] 3 08:23:47 Acute exacerbati on of chronic obstructiv e pulmonary disease 043795211 Active 2021 Not Available [facility] 3 08:23:47 Pneumonia 255696103 Completed Not Available [facility] 3 08:23:47 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 Active Not Available [facility] 3 08:23:47 Increased blood pressure 34946950 Completed Not Available [facility] 3 08:23:47 Fluid level behind tympanic membrane Completed Not Available [facility] 3 08:23:47 Vaginal dryness on intercours e 386891039 Active Not Available [facility] 3 08:23:48 Chest pain 53420033 Completed Not Available [facility] 3 08:23:48 Unable to clear sputum 649450375 Active 2021 Not Available [facility] 3 08:23:48 Severe chronic obstructiv e pulmonary disease 561138487 Active 2021 Not Available [facility] 3 08:23:48 Otitis externa 9001914 Completed Not Available [facility] 3 08:23:48 Vitamin D deficiency 95043998 Active Not Available [facility] 3 08:23:48 Depressive disorder 03490935 Active Not Available [facility] 3 08:23:48 Pericardia l effusion 713135671 Active 2021 Not Available [facility] 3 08:23:49 Disorder of esophagus 06033981 Completed Not Available [facility] 3 08:23:49 Fever 072910972 Completed Not Available [facility] 3 08:23:49 Postmenopa usal flushing 365499008 Active Not Available [facility] 3 08:23:49 Immunoglob ulin deficiency 669060129 Active 2021 Not Available [facility] 3 08:23:49 Environmen dylan allergy 112496470 Active 2021 Not Available [facility] 3 08:23:49 Multiple nodules of lung 425072686 Active 2021 Not Available [facility] 3 08:23:50 Cough 06495285 Completed Not Available [facility] 3 08:23:50 Upper respirator y infection 86844037 Completed Not Available [facility] 3 08:23:50 Allergic rhinitis 26714770 Active Not Available [facility] 3 08:23:50 Osteoporos is 47399848 Active 2021 Not Available [facility] 3 08:23:50 Otitis media 51691032 Completed Not Available [facility] 3 08:23:50 Urinary tract infectious disease 19849973 Completed Not Available [facility] 3 08:23:51 Prediabete s 571111481 Active 2020 Not Available [facility] 3 08:23:51 Posterior rhinorrhea 78436748 Active Not Available [facility] 3 08:23:51 Palpitatio ns 15268031 Active 2021 Not Available [facility] 3 08:23:51 Hyperglyce valdo 88774340 Active 2018 Not Available [facility] 3 08:23:51 Fatigue 03829416 Active Not Available [facility] 3 08:23:52 Vitamin deficiency 23945771 Active Not Available [facility] 3 08:23:52 Arthralgia of temporoman dibular joint 34779748 Active 2021 Not Available [facility] 3 08:23:52 Problem Notes None recorded. 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 Not Available [facility] 07/15/2022 08:19:31 Imaging Results Imaging Date Name Status LastModified by [facility] Details LastModified Time 02/24/2022 DEXA, axial skeleton completed [id number] 026 [facility] (Imaging) [address] [place], [address], 07/15/2022 08:30:58 02/24/2022 bone density completed [id number] 30 026 [facility] Add On Lab Orders [address], [place], [address], 07/15/2022 08:30:58 08/17/2022 CT, chest, w/o contrast completed [email or web address] Information not available 09/02/2022 18:53:26 Procedure Notes None recorded. Medical Equipment None Reported. Allergies Allergen ID Allergen Name Allergen Category Reaction Reaction Severity Criticality Documentation Date Start Date Code Code System Note Provider Name and Address Organization Details Recorded Time Substance with sulfonami de structure and antibacte rial mechanism of action (substanc e) medicatio n anaphylax is Not available Not available 07/15/2022 88772 8003 SNOMED Not Available [facility] 3 08:30:45 92939 Levaquin medicatio n irregular heart rate Not available Not available 07/15/2022 25855 2 RxNorm Not Available [facility] 3 08:30:45 04896 Iodinated contrast media (substanc e) medicatio n Not available Not available Not available 07/15/2022 75909 2004 SNOMED Not Available [facility] 3 08:30:45 64945 codeine medicatio n headache Not available Not available 07/15/2022 2670 RxNorm Not Available [facility] 3 08:30:45 Medications Name Sig Start Date [...] mL intramuscu lar suspension , kit [facility] 10[facility]16 completed Not Available Not Available Not [...] Not Available No t Available Dexcom G6 Head Cashier USE DIRECTED. active Not Available Not Available [...] (15 mcg x 4)/0.5mL IM syringe [facility] 10/16 completed Not Available Not Available Not Available Trelegy Ellipta 200 mcg-62.5 mcg-25 mcg powder for inhalation INHALE 1 PUFF EVERY DAY DIRECTED active Not Available Not Available No t Available Vitals Date Recorded Body mass index (BMI) Body height Oxygen saturation Oxygen saturation in Arterial blood by Pulse oximetry Heart rate Body temperature Body weight Systolic blood pressure Diastolic blood pressure Provider Name and Address Organization Details Last Updated DateTime 2 32.9 kg/m2 146.05 cm 98 % 98 % 76 /min 98.6 [degF] 03914.1 g 120 mm[Hg] 80 mm[Hg] Not Available [facility] 3 08:19:53 Date Recorded Body mass index (BMI) Body height Oxygen saturation Oxygen saturation in Arterial blood by Pulse oximetry Heart rate Body temperature Body weight Systolic blood pressure Diastolic blood pressure Provider Name and Address Organization Details Last Updated DateTime 3 34 kg/m2 146.05 cm 97 % 97 % 80 /min 98.1 [degF] 43680.7 8 g 110 mm[Hg] 70 mm[Hg] Not Available [facility] 3 08:19:53 Date Recorded Body height Body mass index (BMI) Body weight Body temperature Heart rate Oxygen saturation Oxygen saturation in Arterial blood by Pulse oximetry Systolic blood pressure Diastolic blood pressure Provider Name and Address Organization Details Last Updated DateTime 3 146.05 cm 35.5 kg/m2 20030.9 3 g 97.5 [degF] 73 /min 97 % 97 % 108 mm[Hg] 62 mm[Hg] Fernanda Velasquez [place] [employer] [facility] [employer] 3 10:13:39 Date Recorded Body height Provider Name an d Address Organization Details Last Updated DateTime 09/24/2022 146.05 cm Swati Rivera [place] [facility] I L [employer] 09/24/2022 11:07:42 Date Recorded Body height Body mass index (BMI) Body weight Body temperature Heart rate Oxygen saturation Oxygen saturation in Arterial blood by Pulse oximetry Systolic blood pressure Diastolic blood pressure Provider Name and Address Organization Details Last Updated DateTime 3 149.86 cm 33.3 kg/m2 11553.7 4 g 96.3 [degF] 68 /min 94 % 94 % 108 mm[Hg] 60 mm[Hg] Fernanda Velasquez [employer] [facility] [employer] 3 11:26:24 Social History Question Answer Notes LastModified by Organizat ion Details LastModified Time Tobacco Smoking Status Former Smoker Not Available [facility] 07/15/2022 08:18:59 What Is Your Level Of Alcohol Consumption? Occasional [id number].53451 [id number] Information not available 07/15/2022 What Is Your Level Of Caffeine Consumption? Occasional MIGRATION.61076 [id number] Information not available 07/15/2022 In The 14 Days Before Symptom Onset, Have You Had Close Contact With A Laboratory-confir med COVID-19 While That Case Was Ill? No MIGRATION.07114 19969 Information not available 07/15/2022 In The 14 Days Before Symptom Onset, Have You Had Close Contact With A Person Who Is Under Investigation For COVID-19 While That Person Was Ill? No MIGRATION.48782 26935 Information not available 07/15/2022 What Type Of Diet Are You Following? REGULAR MIGRATION.51252 79510 Information not available 07/15/2022 When Did You Quit Smoking? 1-5yearssincel astcigarette 1.5 Years Ago MIGRATION.10054 27847 Information not available 07/15/2022 Have You Ever Been Counseled For Unhealthy Alcohol Use? No MIGRATION.99506 99120 Information not available 07/15/2022 Do You Have Any Pets? No [email or web address] Information not available 09/02/2022 At What Age Did You Start Smoking Tobacco? 15 MIGRATION.81296 59445 Information not available 07/15/2022 Do You Use Any Illicit Or Recreational Drugs? No MIGRATION.20333 43358 Information not available 07/15/2022 Has Tobacco Cessation Counseling Been Provided? No MIGRATION.15788 63524 Information not available 07/15/2022 Have You Recently Traveled Abroad? No MIGRATION.37352 72954 Information not available 07/15/2022 Do You Have Any Dietary Restrictions? No MIGRATION.48459 82141 Information not available 07/15/2022 Do You Or Have You Ever Used Any Other Forms Of Tobacco Or Nicotine? No MIGRATION.67749 43165 Information not available 07/15/2022 Sex: Unknown Functional Status Question Answer Note LastModified by Organizat ion Details LastModified Time What is your exercise level? None [id number] Information not available 07/15/2022 Mental Status None recorded. Family History Relationship Description Onset Age of this Age Resolved Age Notes LastModified by Organization Details LastModified Time Mother Myocardial infarction MIGRATION.533 [id number] Not available 07/15/2022 08:19:32 Mother Non-function ing kidney MIGRATION.330 [id number] Not available 07/15/2022 08:19:32 Brother Myocardial infarction MIGRATION.428 [id number] Not available 07/15/2022 08:19:32 Brother Malignant tumor of lung MIGRATION.738 [id number] Not available 07/15/2022 08:19:32 Medical History Condition [...] HAVE YOU BEEN HOSPITALIZED OR SEEN IN [facility] ER IN THE PAST YEAR ? N ATHEROSCLEROSIS [...] 100 mcg/0.5mL dose or 50 mcg/0.25mL dose completed Not Available [facility] 07/15/2022 08:30:31 COVID-19, mRNA, LNP-S, PF, 100 mcg/0.5mL dose or 50 mcg/0.25mL dose 1 completed Not Available [facility] 07/15/2022 08:30:31 Influenza, split virus, quadrivalent, preservative 0 completed Not Available [facility] 07/15/2022 08:30:32 Influenza, split virus, trivalent, preservative 4 completed Not Available [facility] 07/15/2022 08:30:32 Tdap 4 completed Not Available [facility] 07/15/2022 08:30:32 Influenza, high-dose, quadrivalent, PF 2 completed Not Available [facility] 07/15/2022 08:30:32 Influenza, split virus, quadrivalent, PF 9 completed Not Available [facility] 07/15/2022 08:30:33 pneumococcal polysaccharide PPV23 9 completed Not Available [facility] 07/15/2022 08:30:33 Influenza, split virus, quadrivalent, preservative 5 completed Not Available [facility] 07/15/2022 08:30:33 Tdap 4 completed Not Available [facility] 07/15/2022 08:30:33 Influenza, split virus, trivalent, PF 4 completed Not Available [facility] 07/15/2022 08:30:33 Past Encounters Encounter ID Performer Location Encounter Start Date Encounter Closed Date Diagnosis/Indication Diagnosis SNOMED-CT Code Diagnosis ICD10 Code Diagnosis Note [id number] [facility] [place] [address] 07/22/2020 00:00:00 07/22/2020 19:48:55 [id number] [facility] [place] [address] 08/08/2020 00:00:00 08/08/2020 14:27:25 [id number] [facility] [place] [address] 10/16/2020 00:00:00 10/16/2020 15:58:33 [id number] [facility] [place] [address] [place] [address] 02/03/2021 00:00:00 02/03/2021 13:40:52 [id number] [facility] [place] [address] [place] [address] 04/18/2021 00:00:00 04/18/2021 16:02:05 [id number] [facility] [place] [address] [place] [address] 05/29/2021 00:00:00 05/29/2021 13:30:29 [id number] [facility] [address] , [place] [address] 08/11/2021 00:00:00 08/11/2021 12:27:27 [id number] [facility] [place] [address] [place] [address] 09/22/2021 00:00:00 09/22/2021 16:04:46 [id number] [facility] [place] [address] [place] [address] 11/06/2021 00:00:00 11/06/2021 12:20:44 [id number] [facility] [address] , [place] [address] 02/18/2022 00:00:00 02/18/2022 14:33:47 [id number] [facility] [place] [address] [place] [address] 03/04/2022 00:00:00 03/04/2022 12:57:19 [id number] [facility] [address] [place] [address] 03/25/2022 00:00:00 03/25/2022 16:45:27 [id number] [facility] [place] [address] [place] [address] 07/06/2022 00:00:00 07/06/2022 15:15:47 [id number] [facility] [place] [address] [place] [address] 09/02/2022 10:05:34 09/02/2022 10:58:06 Severe chronic obstructive pulmonary disease 625921468 J44.9 PFT 04/2021 with severe obstructio n, in chartConti nue Trelegy Ellipta 200Re-inst ructed on techniqueC ontinue Albuterol PRN.She is aware of indication s for useOxygen at 2 liters with sleep - [place] WNL in chartAlpha 1 MM normalResu me pulmonary rehab when improvedPL ans to repeat PFT when at baselineRT C in 3 months, PRN for concerns Multiple n odules of lung 555859607 R91.[address] chest, very small, less than 3 mm (per dictation, I do not have CD).Associ ated with mucous pluggingIn crease frequency of flutter valveNo adenopathy Repeat due 04/2022 with resolution of nodules Dependence on supplemental oxygen 3178891230 07 Z99.81 2 liters with sleep, discussed 100% compliance and the risks of hypoxia including deathLast walk test 04/2021 was WNL. although she did desaturate to 88% transientl yPlans to re-walk when at baseline Immunoglob ulin deficiency 149279954 D80.9 IGG subclasses low, also with elevated IGEHas seen Dr Samuel Environmental allergy 42 0819783 T78.49XD IGG1 and 2 slightly low.IGE elevated and RAST with reactions to dust mites and cats.She is aware to take allergy pill dailyConti jose antonio doshi [facility] Samuel, I have encouraged her to make follow up appointmen t Ex-smoker 1822241 Z87.89 1 Repeat screening due 04/2023 [id number] MITZY Ahumada [facility] [place] [address] [place] [address] 09/24/2022 11:07:21 09/24/2022 15:44:12 Acute exacerbation of chronic obstructive pulmonary disease 505898915 J44.1 Has completed one round of prednisone and AugmentinC OVID testing negativeSy mptoms persistNeb ulizer d6iWxpmjxw Tessalon PRNPrednis one and cipro - she tells me she has had this previously with no reactionHy drate - monitor urine output and colorRestD iscussed S/S that require emergency evaluation Severe chr onic obstructive pulmonary disease [id number] J44.9 PFT 04/2021 with severe obstructio n, in chartConti nue Trelegy Ellipta 200Continu e AlbuterolS he is aware of indication s for useOxygen at 2 liters with sleep - [place] WNL in chart [id number] Alexandra Antonio [facility] Pulmonolo [facility] [place] [address] [place] [address] 03/03/2023 11:25:21 03/03/2023 12:15:20 Severe chronic obstructive pulmonary disease [id number] J44.9 PFT 04/2021 with severe obstructio n, in chartConti nue Trelegy Ellipta 200Continu e Albuterol PRN.She is aware of indication s for useShe has nebulizer for PRN useOxygen at 2 liters with sleep - [place] WNL in chartAlpha 1 MM normalResu me pulmonary rehab when improvedPl ans to repeat PFT when at baselineAd vised vaccines this fall Multiple n odules of lung [id number] R91.[address] chest, very small, less than 3 mm (per dictation, I do not have CD).Associ ated with mucous pluggingIn crease frequency of flutter valveNo adenopathy Repeat due 04/2022 with resolution of nodulesCT 08/2022:Mi ld emphysema No nodule, mass or enlarged lymph nodes Dependence on supplemental oxygen [id number] 07 Z99.81 2 liters with sleep, discussed 100% compliance and the risks of hypoxia including deathLast walk test 04/2021 was WNL, although she did desaturate to 88% transientl yPlans to re-walk when at baselineSa turations 96% today RA at rest Immunoglob ulin deficiency [id number] D80.9 IGG subclasses low, also with elevated IGEHas seen Dr Samuel with evaluation Environmental allergy 42 [id number] T78.49XD IGG1 and 2 slightly low.IGE elevated and RAST with reactions to dust mites and cats.Aller gy pill dailyConti nue [facility]entink[facility] Ex-smoker [id number] Z87.89 1 Quit smoking 2 years agoCT as detailed aboveRepea t screening due 08/2023 Health Concerns Section Related Observation LastModified by Organization Detai ls LastModified Time None Recorded Concern Status LastModified by Organization Details LastModified Time None Recorded Advance Directives Directive None Recorded Payers Encounter Date Sequence Insurance Name Policy Number Policy Alejandro Covered Member ID Alejandro Member ID Guarantor Name 09/02/2022 1 [place] Gloria S Mariama Reyes [id number] Gloria S Mariama-Reyes 09/02/2022 2 [place] [id number] Gal V Reyes [id number] Gloria S Mariama-Reyes 09/24/2022 1 [place] Gloria S Mariama Reyes [id number] Gloria S Mariama-Reyes 09/24/2022 2 [place] [id number] Gal V Reyes [id number] Gloria S Mariama-Reyes 03/03/2023 1 [place] Gloria S Mariama Reyes [id number] Gloria S Mariama-Reyes 03/03/2023 2 [place] [id number] Gal V Reyes [id number] Gloria S Mariama-Reyes Notes Date Note [...] productiveDenies wheezing and chest painHas not seen laborer tree tapping recentlyNo hemoptysis or unintentional weight loss.Respiratory symptoms are not waking her at night.Mild sinus congestionCompliant with oxygen, she has good use and clinical benefit MITZY Ahumada [address], [place], [address], Emulate 09/02/2022 14:58:43 3 text/html Gloria presents today [...] known sick contacts MITZY Ahumada [address], [place], [address], Emulate 09/24/2022 14:57:06 3 text/html Ms Leslie presents [...] clinical benefitNo respiratory exacerbation since September 2022 BRITTA Ahumada [address] [facility] [facility] [address], [place], [address], [place] - [facility] 03/03/2023 13:51:01 OBGyn Episode No OBEpisode recorded.
--- OUTSIDE RECORDS SUMMARY | 2024-07-21 12:58 | XMS_ITS | Referral Summary ---
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 Gender Identity Not on file Sexual Orientation Not on file Last Filed Vital Signs Vital Sign Reading Time Taken Comments Blood Pressure 152/98 11/26/2022 3:57 PM CDT Pulse 53 09/30/2022 10:21 AM CDT Temperature 36.3 C (97.3 F) 07/23/2022 10:25 AM PERINATAL NURSE Respiratory Rate 16 07/23/2022 10:25 AM PERINATAL NURSE Oxygen Saturation 95% 09/30/2022 10:21 AM CDT Inhaled Oxygen Concentration - - Weight 72.6 kg (160 lb) 09/30/2022 10:21 AM CDT Height 149.9 cm (4' 11 ) 09/30/2022 10:21 AM CDT Body Mass Index 32.32 09/30/2022 10:21 AM CDT Plan of Treatment Not on file Insurance MEDICARE MEDICARE [facility] MEDICARE [facility] MEDICARE [facility] Care Teams Obstetric Anaesthetist Relationship Specialty Start Date End Date Pamela Araiza NP [facility] [place] [place] [address] PCP - General Nurse Practitioner 11/26/22
--- OUTSIDE RECORDS SUMMARY | 2024-07-21 12:58 | XMS_ITS | CONTINUITY OF CARE DOCUMENT ---
Author Name tera haley Address Unknown Organization [facility] Address [address] [place] [address] Phone [phone] Care Team Providers Care Trolley Collector Name Role Phone Phillip CHACKO, Michael Unavailable JOHNATHON DOAN Unavailable JOHNATHON DOAN Unavailable INSURANCE PROVIDERS Payer name Policy type / Coverage type [place] red green party ID [facility] Blue [facility] [id number] [place] Medicare [id number]
--- OUTSIDE RECORDS SUMMARY | 2024-07-21 12:59 | XMS_ITS ---
Author Organization [facility] Address [address] [place] [address] Care Team Providers Care Avionics System Engineer Name Role Phone Pamela Moe Primary Care Provider Yesika Jabier Sloan Unavailable [phone] ZZ-Migration, Provider Unavailable Unavailab le Allergies Allergen (clinical drug ingredient) Drug/Non Drug Allergy documented on EMR Reaction Allergy Type Onset Date Status IV CONTRAST DYE (uncoded) hives Allergy Active Levaquin hives Drug Allergy Active Sulfamethoxazole other reaction Drug Allergy Active REASON FOR VISIT [facility] To [facility] Conversion Encounter Medications Medication SIG (Take, Route, Frequency, Duration) Notes Start Date End Date Status Vitamin D3 50 MCG 1 TAB(S) ORALLY ONCE A DAY *Please review and pick correct strength-formulati on from [facility] options. If intended option is not shown, [...] review and pick correct strength-formulati on from [facility] options. If intended option is not [...] Active Encounters Encounter Location Date Provider Diagnosis [facility] [address] 10/30/2023 Provider EDIS-Loren Cough, unspecified R05.9 ; [...] Notes * Gloria FELDERDOB: (68 yo F)Acc No.[id number]:10/30/2023 Patient: Gloria RAMIREZ Provider: Mark Pimentel :1955 A ge:68 Y S ex:Female Date:10/30/2023 Address:[address] [place], [place] [address] Pcp:Pamela Araiza, ANP- Subjective: * Chief Complaints: [...] *Please review and pick correct strength-formulation from [facility] options. If intended option is not shown, [...] * Electronic signature of Chintan RANDHAWA-Migration on 07/21/2024 at 12:58 PM AUDITOR SUPERVISOR Sign off status: Pending * Provider: Mark aguirre Migration Date: 0 10/30/2023 Generated for Liya jones/Lj/Heribertosmitting on: 0 07/21/2024 12:58 PM AUDITOR SUPERVISOR
--- OUTSIDE RECORDS SUMMARY | 2024-07-21 12:59 | XMS_ITS | Clinical Summary ---
Author Organization [facility] Address [facility] [place] [address] Care Team Providers Care Assembled Wood Products Repairer Name Role Phone Jose G Pamela BYRON Primary Care Provider [phone] Allergies Active Allergy Reactions Criticality Noted Date [...] Active vitamin D3, cholecalciferol , 1.25 MG (00402 UT) capsule Take 50,000 Units by mouth [...] Comments Blood Pressure 140/82 07/05/2023 4:11 PM AWNING HANGER Pulse 80 07/05/2023 4:11 PM AWNING HANGER Temperature 36.5 C (97.7 F) 07/05/2023 4:11 PM AWNING HANGER Respiratory Rate 20 07/05/2023 4:11 PM AWNING HANGER Oxygen Saturation 96% 07/05/2023 4:11 PM AWNING HANGER Inhaled Oxygen Concentration - - Weight 73.9 kg (163 lb) 07/05/2023 4:11 PM AWNING HANGER Height 144.8 cm (4' 9 ) 07/05/2023 4:11 PM AWNING HANGER Body Mass Index 35.27 07/05/2023 4:11 PM AWNING HANGER Plan of Treatment Health Maintenance Due Date Last Done Comments Colorectal Cancer Screening Colonoscopy ( Years) 1955 PHQ-2 (Physician [place]) 1965 Mammogram Screening 1993 RSV Immunization or [...] 03/12/2019, 06/07/2018, Additional history exists PHQ-2 (Physician [place]) 05/17/2024 Pneumococcal Vaccine: 65+ Years Completed 11/06/2021, [...] age to complete this topic Insurance MEDICARE [facility] Care Teams Assembled Wood Products Repairer Relationship Specialty Start Date End Date Pamela Araiza NP [address] [place] [address] PCP - General NURSE PRACTITIONER 09/14/19
--- OUTSIDE RECORDS SUMMARY | 2024-07-21 12:59 | XMS_ITS | Encounter Summary ---
Author Organization [facility] Address [facility] [place] [address] Care Team Providers Care Machine Woodworking Sander Name Role Phone Pamela Araiza NP Primary Care Provider Encounter Details Date Type Department Care Team ([facility] st Contact Info) Description 10/22/2018 Abstract [facility] CONVERSION [address] [place] [address] , Generic Conversion, Social History Tobacco Use [...] on filedocumented in this encounter Care Teams Machine Woodworking Sander Relationship Specialty Start Date End Date Pamela Araiza NP [address] [place] [address] PCP - General NURSE PRACTITIONER 09/14/19 documented as of this encounter
[2024-07-21 13:00] VITALS: PULSE 74; O2SAT 97
[2024-07-21 13:03] VITALS: PULSE 129; O2SAT 87
[2024-07-21 13:04] VITALS: PULSE 136; O2SAT 88
[2024-07-21 13:05] VITALS: PULSE 127; O2SAT 93
[2024-07-21 13:15] VITALS: PULSE 88; O2SAT 95
--- NOTE | 2024-07-21 14:37 | HOMEO2EVAL ---
Evaluation was performed at [facility] Home Oxygen Evaluation RC: Home Oxygen (O2) Evaluation Start: 07/21/24 14:22 Freq: Status: Active Protocol: RPE Activity Type Activity Date Activity User E-sign Co-sign Detail Recorded Client Recorded Date Recorded By Document 07/21/24 13:00 KATY [email or web address] 07/21/24 14:37 KATY Document 07/21/24 13:03 KATY [email or web address] 07/21/24 14:37 KATY Document 07/21/24 13:04 KATY [email or web address] 07/21/24 14:37 KATY Document 07/21/24 13:05 KATY [email or web address] 07/21/24 14:37 KATY Document 07/21/24 13:15 KATY [email or web address] 07/21/24 14:37 KATY 07/21/24 07/21/24 07/21/24 13:00 13:03 13:04 Home O2 Evaluation [Oxygen] -Test Phase Resting Exercise Exercise -Oxygen Delivery Room Air Room Air Nasal Cannula -Oxygen Flow Rate (L/min) 1 [Pulse Oximetry] -Pulse Oximetry (90-100 %) 97 87 L 88 L [Pulse Rate] -Pulse Rate (60-100 beats/min) 74 129 H 136 H [Evaluation] -Activity Tolerance [Exercise] -Ambulation Distance (feet) -Ambulation Distance (meters) [Comments] -Home Oxygen Evaluation Comments [Charges] -Evaluation Charges O2 Evaluation by Pulmonary 07/21/24 07/21/24 13:05 13:15 Home O2 Evaluation [Oxygen] -Test Phase Exercise Resting -Oxygen Delivery Nasal Cannula Room Air -Oxygen Flow Rate (L/min) 2 [Pulse Oximetry] -Pulse Oximetry (90-100 %) 93 95 [Pulse Rate] -Pulse Rate (60-100 beats/min) 127 H 88 [Evaluation] -Activity Tolerance Excellent [Exercise] -Ambulation Distance (feet) 1,400 -Ambulation Distance (meters) 426.69 [Comments] -Home Oxygen Evaluation Comments Pt walked 1400 feet in 6 minutes. Requiring 2 liters with exertion. PT WOULD BENEFIT USING POC, FOR EASE OF PORTABILITY AND CONTINUING ACTIVE LIFESTYLE. [Charges] -Evaluation Charges
--- NOTE | 2024-07-21 14:40 | PCRCNOTE ---
Please arrange/order home O2 set up with a POC, pulse dose is adequate. Pt requires 2 liters with activity, states she has stationary unit at home from [facility].
== END 2024-07-21 12:39 | disposition home or self-care (01) ==
LOC: ANHPFT 12:39
PROVIDERS: PCP Nurse Practitioner Adult Health; Visit Provider Nurse Practitioner Adult Health
DX: Z12.2 Encounter for screening for malignant neoplasm of respiratory organs (principal); Z87.891 Personal history of nicotine dependence
CPT/HCPCS: 71271; 94618

== ENCOUNTER 2024-09-20 12:20 | Outpatient (CLI) | payer MEDICARE, BC, SELFPAY ==
--- NOTE | ~2024-09-20 | XR_ITS ---
Lumbosacral Spine: AP and lateral views Clinical History: Pain Findings: The normal lordotic curve is maintained. The vertebral bodies and posterior elements are i ntact. The intervertebral disc spaces are preserved. Extensive facet arthropathy present. The sacroi liac joints are normally outlined. Impression: Extensive facet arthropathy in the lumbar spine. Reviewed, dictated and finalized at location . Impression: Extensive facet arthropathy in the lumbar spine.
--- OUTSIDE RECORDS SUMMARY | 2024-09-20 12:34 | XMS_ITS | CONTINUITY OF CARE DOCUMENT ---
Author Name tera haley Address Unknown Organization [facility] Address [address] [place] [address] Phone [phone] Care Team Providers Care Genetic Engineer Name Role Phone Phillip CHACKO, Michael Unavailable JOHNATHON DOAN Unavailable [phone] JOHNATHON DOAN Unavailable INSURANCE PROVIDERS Payer name Policy type / Coverage type [place] red alliance party ID [facility] Blue [facility] [id number] [place] MEDICARE Medicare [id number]
--- OUTSIDE RECORDS SUMMARY | 2024-09-20 12:34 | XMS_ITS | Encounter Summary ---
Author Organization [facility] Address [facility] [place] [address] Care Team Providers Care Administration Professional Name Role Phone Pamela Araiza NP Primary Care Provider [phone] Encounter Details Date Type Department Care Team ([facility] st Contact Info) Description 10/22/2018 Abstract [facility] CONVERSION [address] [place] [address] , Generic Conversion, Social History Tobacco Use [...] on filedocumented in this encounter Care Teams Administration Professional Relationship Specialty Start Date End Date Pamela Araiza NP [address] [place] [address] PCP - General NURSE PRACTITIONER 09/14/19 documented as of this encounter
--- OUTSIDE RECORDS SUMMARY | 2024-09-20 12:34 | XMS_ITS | Clinical Summary ---
Author Organization [facility] Address [facility] [place] [address] Care Team Providers Care Horse Stud Manager Name Role Phone Jose G Pamela BYRON Primary Care Provider [phone] Allergies Active Allergy Reactions Criticality Noted Date [...] Active vitamin D3, cholecalciferol , 1.25 MG (65572 UT) capsule Take 50,000 Units by mouth [...] Comments Blood Pressure 140/82 07/05/2023 4:11 PM BUSINESS PROCESS CONSULTANT Pulse 80 07/05/2023 4:11 PM BUSINESS PROCESS CONSULTANT Temperature 36.5 C (97.7 F) 07/05/2023 4:11 PM BUSINESS PROCESS CONSULTANT Respiratory Rate 20 07/05/2023 4:11 PM BUSINESS PROCESS CONSULTANT Oxygen Saturation 96% 07/05/2023 4:11 PM BUSINESS PROCESS CONSULTANT Inhaled Oxygen Concentration - - Weight 73.9 kg (163 lb) 07/05/2023 4:11 PM BUSINESS PROCESS CONSULTANT Height 144.8 cm (4' 9 ) 07/05/2023 4:11 PM BUSINESS PROCESS CONSULTANT Body Mass Index 35.27 07/05/2023 4:11 PM BUSINESS PROCESS CONSULTANT Plan of Treatment Health Maintenance Due Date Last Done Comments Colorectal Cancer Screening Colonoscopy ( Years) 1955 Mammogram Screening 1993 Annual Medicare Wellness Visit 2018 Dexa Scan (General) 2018 Zoster Vaccines (2 of 2) 06/05/2020 04/10/2020 DTaP, Tdap and Td Vaccines ( 3 - Td or Tdap) 06/26/2023 06/26/2013, 06/19/2013 COVID-19 Vaccine (3 - 2023-2 5 season) 2024 10/01/2020, 08/28/2020 PHQ-2 (Physician [place]) 05/17/2024 RSV Immunization or 60+ Years (1 - 1-dose 75+ series) 2028 Pneumococcal Vaccine: 50+ Years Completed 11/06/2021, 04/10/2020, 06/07/2018 Hepatitis C Completed 03/19/2022, 03/19/2022 Meningococcal B Vaccine Aged Out No l onger eligible based on patient's age to complete this topic Meningococcal Vaccine Aged Out No eneida bharathi eligible based on patient's age to complete this topic RSV Immunizations Under 20 Months Aged Out No longer eligible b ased on patient's age to complete this topic Insurance MEDICARE [facility] Care Teams Horse Stud Manager Relationship Specialty Start Date End Date Pamela Araiza NP [address] [place] [address] PCP - General NURSE PRACTITIONER 09/14/19
--- OUTSIDE RECORDS SUMMARY | 2024-09-20 12:34 | XMS_ITS | Clinical Summary ---
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:54 AM GOLD LEAF LABORER Gender Identity Not on file Sexual Orientation Not on file Obstetrics History Last Filed Vital Signs Vital Sign Reading Time Taken Comments Blood Pressure 152/98 11/26/2022 3:57 PM CDT Pulse 53 09/30/2022 10:21 AM CDT Temperature 36.3 C (97.3 F) 07/23/2022 10:25 AM GOLD LEAF LABORER Respiratory Rate 16 07/23/2022 10:25 AM GOLD LEAF LABORER Oxygen Saturation 95% 09/30/2022 10:21 AM CDT [...] Fall Risk Assessment 07/24/2023 07/23/2022 Covid-19 Vaccine (2023- 5 season) 2024 10/01/2020, 08/28/2020, 08/26/2020, Additional history exists Influenza Vaccine (Season Ended) 2025 03/04/2022, 02/19/2020, 02/17/2020, Additional history exists Pneumococcal vaccine 65+ Completed 022, 04/10/2020, 06/07/2018 Insurance MEDICARE MEDICARE [facility] MEDICARE [facility] MEDICARE [facility] Care Teams Makeup Sales Advisor Relationship Specialty Start Date End Date Pamela Araiza NP [facility] [place] [address] PCP - General Nurse Practitioner 11/26/22
--- OUTSIDE RECORDS SUMMARY | 2024-09-20 12:34 | XMS_ITS | Referral Summary ---
Author Organization [facility] Address [address] [place] [address] Care Team Providers Care Groundman/Lineman Name Role Phone Pamela Araiza NP Primary Care Provider [phone] Allergies Active Allergy Reactions Criticality Noted Date [...] on file Legal Sex Female 7:54 AM CLAM DREDGE BOAT CAPTAIN Gender Identity Not on file Sexual Orientation Not on file Last Filed Vital Signs Vital Sign Reading Time Taken Comments Blood Pressure 152/98 11/26/2022 3:57 PM CDT Pulse 53 09/30/2022 10:21 AM CDT Temperature 36.3 C (97.3 F) 07/23/2022 10:25 AM CLAM DREDGE BOAT CAPTAIN Respiratory Rate 16 07/23/2022 10:25 AM CLAM DREDGE BOAT CAPTAIN Oxygen Saturation 95% 09/30/2022 10:21 AM CDT Inhaled Oxygen Concentration - - Weight 72.6 kg (160 lb) 09/30/2022 10:21 AM CDT Height 149.9 cm (4' 11 ) 09/30/2022 10:21 AM CDT Body Mass Index 32.32 09/30/2022 10:21 AM CDT Plan of Treatment Not on file Insurance MEDICARE MEDICARE [facility] MEDICARE [facility] MEDICARE [facility] Care Teams Groundman/Lineman Relationship Specialty Start Date End Date Pamela Araiza NP [facility] [place] [address] PCP - General Nurse Practitioner 11/26/22
[2024-09-20 19:27] LABS: Hematocrit 42.1 % (37.0-47.0); Hemoglobin 12.9 g/dL (12.0-15.0); Mean Corpuscular HGB Conc 30.6 g/dl (32-36); Mean Corpuscular Hemoglobin 27.8 pg (26-34); Mean Corpuscular Volume 90.7 fl (80-100); Mean Platelet Volume 10.7 fl (7.4-10.4); Platelet Count Result 350 k/mm3 (150-375); Red Blood Count 4.64 M/mm3 (4.2-5.4); Red Cell Distribution Width 14.5 % (11.5-14.5); White Blood Count 4.5 K/mm3 (4.5-10.0)
[2024-09-20 19:50] LABS: Alanine Aminotransferase 15 U/L (6-35); Albumin Level 4.2 g/dL (3.5-5.1); Alkaline Phosphatase 92 U/L (38-126); Anion Gap 10 mmol/L (4-12); Aspartate Amino Transferase 47 U/L (14-36); Bilirubin,Total 0.5 mg/dL (0.2-1.3); Blood Urea Nitrogen 12 mg/dL (7-17); Calcium 9.6 mg/dL (8.4-10.2); Carbon Dioxide 27 mmol/L (22-30); Chloride 107 mmol/L (98-107); Estimated Glomerular Filt Rate > 60; Glucose 89 mg/dL (65-110); Potassium 4.3 mmol/L (3.4-5.0); Sodium 144 mmol/L (137-145)
[2024-09-20 19:51] LABS: Iron 65 ug/dL (37-170)
[2024-09-20 20:01] LABS: Percent Iron Saturation 19 % (20-50)
[2024-09-20 20:18] LABS: Vitamin D 25 Hydroxy 23.1 ng/mL
== END 2024-09-20 12:21 | disposition home or self-care (01) ==
PROVIDERS: PCP Nurse Practitioner Adult Health; Visit Provider Nurse Practitioner Adult Health
DX: N18.9 Chronic kidney disease, unspecified (principal); R41.3 Other amnesia; E55.9 Vitamin D deficiency, unspecified; J44.9 Chronic obstructive pulmonary disease, unspecified; M54.9 Dorsalgia, unspecified
CPT/HCPCS: 36415; 72100; 80053; 82306; 82607; 83540; 83550; 84443; 85027

== ENCOUNTER 2024-11-20 14:36 | Outpatient (CLI) | payer MEDICARE, BC, SELFPAY ==
--- OUTSIDE RECORDS SUMMARY | 2024-11-20 14:43 | XMS_ITS ---
Author Organization [facility] [place] ([address]) Address [address] [place] [address] Care Team Providers Care Property Administrator Name Role Phone Pamela Moe Primary Care Provider Yesika Jabier Sloan Unavailable [phone] ZZ-Migration, Provider Unavailable Unavailab le Allergies Allergen (clinical drug ingredient) Drug/Non Drug Allergy documented on EMR Reaction Allergy Type Onset Date Status IV CONTRAST DYE (uncoded) hives Allergy Active Levaquin hives Drug Allergy Active Sulfamethoxazole other reaction Drug Allergy Active REASON FOR VISIT [facility] To [facility] Conversion Encounter Medications Medication SIG (Take, Route, Frequency, Duration) Notes Start Date End Date Status Vitamin D3 50 MCG 1 TAB(S) ORALLY ONCE A DAY *Please review and pick correct strength[facility]ulati [facility]. If intended option is not [...] review and pick correct strength-formulati on from [facility] options. If intended option is not [...] Encounter Location Date Provider Diagnosis [facility] [place] [address] 10/30/2023 Provider ZZ-Migration Cough, unspecified R05.9 ; [...] *Please review and pick correct strength-formulation from [facility] options. If intended option is not shown, discontinue and re-order from Quick Search* OZEMPIC 2 MG/1.5 ML (0.25 MG OR 0.5 MG DOSE) DIRECTED SUBCUTANEOUSLY ONCE A WEEK *Please review for potential replacement for e-prescription and drug interaction check* Trelegy Ellipta 200 MCG-62.5 MCG-25 MCG/INH 1 PUFF(S) INHALED ONCE A DAY; Duration: 30 DAY(S) *Please review and pick correct strength-formulation from [facility] options. If intended option is not shown, [...] Notes * Gloria FELDERDOB: (69 yo F)Acc No.[id number]:10/30/2023 Patient: Eneida DENARINDER Gloria REYES Provider: Mark Pimentel :1955 A ge:68 Y S ex:Female Date:10/30/2023 Address:[address] [place], [place] [address] Pcp:Pamela Araiza, ANP- Subjective: * Chief Complaints: * 1 . [facility] En[facility]. * Medical History: * Allergies: [...] *Please review and pick correct [facility]. If intended option is not [...] * Electronic signature of Chintan RANDHAWA-Migration on 11/20/2024 at 02:43 PM CDT Sign off status: Pending * Provider: Mark aguirre Migration Date: 0 10/30/2023 Generated for Liya jones/Lj/Tami on: 11/20/2024 02:43 PM CDT
--- OUTSIDE RECORDS SUMMARY | 2024-11-20 14:43 | XMS_ITS | Referral Summary ---
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 Gender Identity Not on file Sexual Orientation Not on file Last Filed Vital Signs Vital Sign Reading Time Taken Comments Blood Pressure 152/98 11/26/2022 3:57 PM CDT Pulse 53 09/30/2022 10:21 AM CDT Temperature 36.3 C (97.3 F) 07/23/2022 10:25 AM [employer]IN [employer] MACHINE OPERATOR Respiratory Rate 16 07/23/2022 10:25 AM [employer]IN [employer] MACHINE OPERATOR Oxygen Saturation 95% 09/30/2022 10:21 AM CDT Inhaled Oxygen Concentration - - Weight 72.6 kg (160 lb) 09/30/2022 10:21 AM CDT Height 149.9 cm (4' 11) 09/30/2022 10:21 AM CDT Body Mass Index 32.32 09/30/2022 10:21 AM CDT Plan of Treatment Not on file Insurance MEDICARE MEDICARE [facility] MEDICARE [facility] MEDICARE [facility] Care Teams Division Field Inspector Relationship Specialty Start Date End Date Pamela Araiza NP [facility] [place] [address] PCP - General Nurse Practitioner 11/26/22
--- OUTSIDE RECORDS SUMMARY | 2024-11-20 14:43 | XMS_ITS | Data Portability ---
Author Organization [place] - [facility], Main Office Address [address] [place] [address] Care Team Providers Care Spinner Tender Name Role Phone JOHNATHON VALENTINE Primary Care Provider [phone] JOHNATHON VALENTINE Referring Provider [phone] Assessment Encounter Date Assessment Date Assessment LastModified [...] mcg-25 mcg powder for inhalation 2022 023 [facility] #[id number], [address] [place] [address], [address], 13:50:43 albuterol sulfate HFA 90 mcg/actuati on aerosol inhaler 2022 023 [facility] #6926, [address] [place] [address], [address], 10/18/202 3 13:50:44 albuterol sulfate 2.5 mg/3 mL (0.083 %) solution for nebulizatio n 2022 023 [facility] [address], [address], 3 13:50:44 prednisone 20 mg tablet 2022 023 [facility] [address], [address], 3 12:29:34 ciprofloxac in 750 mg tablet 2022 023 [facility] [address], [address], 3 12:29:35 Tessalon Perles 100 mg capsule 2022 023 [facility] [address], [address], 3 12:29:36 Patient TargetsNo targets recorded. Patient Instructions Encounter Date Encounter Id Patient Instructions Last Modified By Organization Details Last Modified Time 09/24/2022 [id number] Due to the COVID-19 (Novel Coronavirus) pandemic, it is within this context (and with the understanding that this method of patient encounter is in the patient s best interest as well as the health and safety of other patients and the public) that [facility] is being provided for this patient encounter rather than a xtsy-qd-efyz visit. This patient encounter is appropriate at this time. This patient has been advised of the potential risks and limitations of this mode of treatment (including, but not limited to, the absence of in-person examination) and has agreed to be treated in a remote fashion despite these risks. Any and all of the patient s /patient s family s questions on this issue [...] cient : 30-10 0 ng/mL Not Available [facility] (Lab) [address] [place], [address], 02/25/2022 12:15:21 02/25/20 22 02/24/2022 HEMOG LOBIN A1C HA1C 5.8 % 4.0-6. 0 Diabe kel Scree althea Crite eleazar: <5.7% Consi stent with absen ce of diabe kel 5.7-6 .4% Consi stent with incre ased risk for diabe kel (pred iabet es) >OR=6 .5% Consi stent with diabe kel REFER ENCE: Diabe kel Care 2016, 39(Sauer ppl.1 ):s13 -s22 Not Available [facility] (Lab) [address] [place], [address], 02/24/2022 20:19:23 02/25/20 22 02/24/2022 TSH thyroid-stim ulating hormone 3.550 uIU/m L 0.465- 4.680 Not Available [facility] (Lab) [address] [place], [address], 02/24/2022 16:58:26 02/25/2002/24/2022 LIPID PANEL cholesterol 225 mg/dL 140-19 9 high NIH LORETO NSUS RECOM MENDA TION FOR NEDA STERO L: ADULT CHILD LOW RISK: <200 <170 BORDE RLINE : <200- 239 ----- HIGH RISK: >240 >200 Not Available [facility] (Lab) [address] [place], [address], 02/24/2022 15:46:19 02/25/2002/24/2022 LIPID PANEL triglyceride s 107 mg/dL 0-150 NIH LORETO NSUS REPOR T RECOM MENDA TION FOR TRIGL YCERI SARAH: ADULT CHILD LOW RISK: <150 ----- BODER LINE: 150-1 99 ----- HIGH RISK: >200 ----- Not Available [facility] (Lab) [address] [place], [address], 02/24/2022 15:46:19 02/25/2002/24/2022 LIPID PANEL HDL cholesterol 66 mg/dL 40- Not Available [facility] (Lab) [address] [place], [address], 02/24/2022 15:46:19 02/25/2002/24/2022 LIPID PANEL LDL cholesterol, calculated 138 mg/dL 0-130 high NIH LORETO NSUS REPOR T RECOM MENDA TIONS FOR LDL: ADULT CHILD LOW RISK <130 <110 (OPTI MAL LDL) <100 ----- BORDE RLINE : 130-1 59 ----- HIGH RISK: >160 >130 A TRIGL YCERI DE RESUL T >400 INVAL IDATE S THE CALCU LATIO N FOR LDL FRACT IONAT ION - THE LDL RESUL T WILL NOT BE REPOR KAMLESH. Not Available [facility] (Lab) [address] [place], [address], 02/24/2022 15:46:19 02/25/20 22 02/24/2022 BASIC METAB OLIC PANEL sodium 141 mmol/ L 137-14 5 Not Available [facility] (Lab) [address] [place], [address], 02/24/2022 15:46:04 02/25/20 22 02/24/2022 BASIC METAB OLIC PANEL potassium 4.5 mmol/ L 3.5-5. 1 Not Available [facility] (Lab) [address] [place], [address], 02/24/2022 15:46:04 02/25/2002/24/2022 BASIC METAB OLIC PANEL chloride 108 mmol/ L 98-107 high Not Available [facility] (Lab) [address] [place], [address], 02/24/2022 15:46:04 02/25/20 22 02/24/2022 BASIC METAB OLIC PANEL carbon dioxide 26 mmol/ L 22-30 Not Available [facility] (Lab) [address] [place], [address], 02/24/2022 15:46:04 02/25/2002/24/2022 BASIC METAB OLIC PANEL anion gap 11.5 mmol/ L 14-22 low Not Available [facility] (Lab) [address] [place], [address], 02/24/2022 15:46:04 02/25/20 22 02/24/2022 BASIC METAB OLIC PANEL glucose 88 mg/dL 70-99 Not Available [facility] (Lab) [address] [place], [address], 02/24/2022 15:46:04 02/25/20 22 02/24/2022 BASIC METAB OLIC PANEL BUN 14 mg/dL 8-19 Not Available [facility] (Lab) [address] [place], [address], 02/24/2022 15:46:04 02/25/20 22 02/24/2022 BASIC METAB OLIC PANEL creatinine 0.83 mg/dL 0.66-1 .25 Not Available [facility] (Lab) [address] [place], [address], 02/24/2022 15:46:04 02/25/20 22 02/24/2022 BASIC METAB OLIC PANEL GFR >60 Refer ence Range : [place] GFR Healt hy Adult : >60 [...] ages must be made by the clini deanrde. The MDRD study equat ion has not [...] s/kdo qi/gf r_cal culat or Not Available [facility] (Lab) [address] [place], [address], 02/24/2022 15:46:04 02/25/20 22 02/24/2022 BASIC METAB OLIC PANEL calcium 9.4 mg/dL 8.4-10 .2 Not Available [facility] (Lab) [address] [place], [address], 02/24/2022 15:46:04 02/25/20 DEXA, axial skele ton [facility] [address] [place] [address] [phone] Patien t Name: JOSEFA YUSUF DALEY Access ion #: [id number] Sex: F : 1955 1 Locati on: MO2 Attend ing Physic yasir: JOHNATHON CATALAN Orderi Physic yasir: ELENO MiramontesJOHNATHON Exam Date: 2021 9:37 AM Exam Name: [...] e of -1.7. Page 1 of 2 [facility] Name: JOSEFA DALEY KELLYMICAELA Price Cannon Access ion #: [id number] Sex: F : 1955 1 Exam [...] 9:56 AM (CT) Page 2 of 2 [id number] [facility] (Imaging) [address] [place], [address], 07/15/2022 08:30:58 02/25/20 22 02/24/2022 bone densi ty No observ ation record ed. [id number] [facility] Add On Lab Orders [address] [place], [address], 07/15/2022 08:30:58 08/20/19 23 08/17/2022 CT, chest , w/o contr ast No observ ation record ed. [email or web address] Not Available 18:53:26 Result Notes None recorded. Problems Name Problem SNOMED Code Status Onset Date Resolution Date Notes Provider Name and Address Organization Details Recorded Time Acute bronchitis 87900145 Active 2021 Not Available [facility] 3 08:23:46 Ptosis of eyelid 09407151 Active 2021 Not Available [facility] 3 08:23:46 Abnormal thyroid hormone 816526422 Active 2018 Not Available [facility] 3 08:23:46 Chronic obstructiv e pulmonary disease 91627992 Active Not Available [facility] 3 08:23:47 Otalgia 39738203 Active 2021 Not Available [facility] 3 08:23:47 Laboratory test result abnormal 670820754 Active 2021 Not Available [facility] 3 08:23:47 Acute exacerbati on of chronic obstructiv e pulmonary disease 713885231 Active 2021 Not Available [facility] 3 08:23:47 Pneumonia 250673948 Completed Not Available [facility] 3 08:23:47 Adrenal mass 535032077 Active Not Available [facility] 3 08:23:47 Increased blood pressure 57897433 Completed Not Available [facility] 3 08:23:47 Fluid level behind tympanic membrane Completed Not Available [facility] 3 08:23:47 Vaginal dryness on intercours e 342597877 Active Not Available [facility] 3 08:23:48 Chest pain 37806175 Completed Not Available [facility] 3 08:23:48 Unable to clear sputum 153247273 Active 2021 Not Available [facility] 3 08:23:48 Severe chronic obstructiv e pulmonary disease 469435047 Active 2021 Not Available [facility] 3 08:23:48 Otitis externa 6330925 Completed Not Available [facility] 3 08:23:48 Vitamin D deficiency 35390228 Active Not Available [facility] 3 08:23:48 Depressive disorder 72245200 Active Not Available [facility] 3 08:23:48 Pericardia l effusion 475544226 Active 2021 Not Available [facility] 3 08:23:49 Disorder of esophagus 78791805 Completed Not Available [facility] 3 08:23:49 Fever 040235113 Completed Not Available [facility] 3 08:23:49 Postmenopa usal flushing 312848534 Active Not Available [facility] 3 08:23:49 Immunoglob ulin deficiency 313370511 Active 2021 Not Available [facility] 3 08:23:49 Environmen dylan allergy 566869378 Active 2021 Not Available [facility] 3 08:23:49 Multiple nodules of lung 987707868 Active 2021 Not Available [facility] 3 08:23:50 Cough 88312933 Completed Not Available [facility] 3 08:23:50 Upper respirator y infection 20592266 Completed Not Available [facility] 3 08:23:50 Allergic rhinitis 55934549 Active Not Available [facility] 3 08:23:50 Osteoporos is 41356357 Active 2021 Not Available [facility] 3 08:23:50 Otitis media 18262370 Completed Not Available [facility] 3 08:23:50 Urinary tract infectious disease 60221431 Completed Not Available [facility] 3 08:23:51 Prediabete s 810186657 Active 2020 Not Available [facility] 3 08:23:51 Posterior rhinorrhea 51304635 Active Not Available [facility] 3 08:23:51 Palpitatio ns 05719744 Active 2021 Not Available [facility] 3 08:23:51 Hyperglyce valdo 86464285 Active 2018 Not Available [facility] 3 08:23:51 Fatigue 38502506 Active Not Available [facility] 3 08:23:52 Vitamin deficiency 66373990 Active Not Available [facility] 3 08:23:52 Pain of temporoman dibular joint 61255409 Active 2021 Not Available [facility] 3 08:23:52 Problem Notes None recorded. Procedures Surgical History Date Name Laterality Status Provider Name and Address Organization Details Recorded Time 05/30/19 16 Colonoscopy completed Not Available [facility] 07/16/19 08:19:31 Appendectomy completed Not Available [facility] 07/15/2022 08:19:31 Orthopedic Surgery completed Not Available [facility] 07/15/2022 08:19:31 QUAD STAYER Surgery completed Not Available [facility] 07/15/2022 08:19:31 Imaging Results None recorded. Procedure Notes None recorded. Medical Equipment None Reported. Allergies Allergen ID Allergen Name Allergen Category Reaction Reaction Severity Criticality Documentation Date Start Date Code Code System Note Provider Name and Address Organization Details Recorded Time 08650 Substance with sulfonami de structure and antibacte rial mechanism of action (substanc e) medicatio n anaphylax is Not available Not available 07/15/2022 74073 8003 SNOMED Not Available [facility] 3 08:30:45 38002 Levaquin medicatio n irregular heart rate Not available Not available 07/15/2022 16778 2 RxNorm Not Available [facility] 3 08:30:45 42546 Iodinated contrast media (substanc e) medicatio n Not available Not available Not available 07/15/2022 07737 2004 SNOMED Not Available [facility] 3 08:30:45 87253 codeine medicatio n headache Not available Not available 07/15/2022 2670 RxNorm Not Available [facility] 3 08:30:45 Medications Name Sig Start Date [...] (PF) 0.5 mL intramuscu lar syringe [facility]16 completed Not Available Not Available Not [...] Not Available No t Available Fluarix Quad 6733-1510 (PF) 60 mcg (15 mcg x 4)/0.5 mL IM syringe active Not Available Not Available N ot Available Trelegy Ellipta 100 mcg-62.5 mcg-25 mcg powder for inhalation INHALE 1 PUFF EVERY DAY BY INHALATIO N ROUTE DIRECTED FOR 30 DAYS. 02/18 completed Not Available Not Available Not Available Shingrix (PF) 50 mcg/0.5 mL intramuscu lar suspension , kit [facility] 10/16 completed Not Available Not Available Not Available Ozempic 0.25 mg or 0.5 mg (2 mg/1.5 mL) subcutaneo us pen injector INJECT 0.5 MG UNDER THE SKIN WEEKLY active Not Available Not Available No t Available Ladan Magnair Starter 25 mcg/mL solution for nebulizati on 04/15 completed Not Available Not Available Not Available Dexcom G6 Sensor device USE DIRECTED. active Not Available Not Available No t Available Dexcom G6 Supervisor Sewer System USE DIRECTED. active Not Available Not Available [...] (15 mcg x 4)/0.5mL IM syringe [facility] 10/16 completed Not Available Not Available Not Available Trelegy Ellipta 200 mcg-62.5 mcg-25 mcg powder for inhalation INHALE 1 PUFF EVERY DAY DIRECTED active Not Available Not Available No t Available Vitals Date Recorded Body mass index (BMI) Body height Oxygen saturation Oxygen saturation in Arterial blood by Pulse oximetry Heart rate Body temperature Body weight Systolic And Diastolic Provider Name and Address Organization Details Last Updated DateTime 3 34 kg/m2 146.05 cm 97 % 97 % 80 /min 98.1 [degF] 24878.7 8 g 110/70 mm[Hg] Not Available [facility] 3 08:19:53 Date Recorded Body height Body mass index (BMI) Body weight Body temperature Heart rate Oxygen saturation Oxygen saturation in Arterial blood by Pulse oximetry Systolic And Diastolic Provider Name and Address Organization Details Last Updated DateTime 3 146.05 cm 35.5 kg/m2 11989.9 3 g 97.5 [degF] 73 /min 97 % 97 % 108/62 mm[Hg] Fernanda Lin [place] [facility] 3 10:13:39 Date Recorded Body height Provider Name an d Address Organization Details Last Updated DateTime 09/24/2022 146.05 cm DUNG [facility]right - [place] [facility] 09/24/2022 11:07:42 Date Recorded Body height Body mass index (BMI) Body weight Body temperature Heart rate Oxygen saturation Oxygen saturation in Arterial blood by Pulse oximetry Systolic And Diastolic Provider Name and Address Organization Details Last Updated DateTime 3 149.86 cm 33.3 kg/m2 63501.7 4 g 96.3 [degF] 68 /min 94 % 94 % 108/60 mm[Hg] Fernanda [facility] 3 11:26:24 Date Recorded Body mass index (BMI) Body height Oxygen saturation Oxygen saturation in Arterial blood by Pulse oximetry Heart rate Body temperature Body weight Systolic And Diastolic Provider Name and Address Organization Details Last Updated DateTime 2 32.9 kg/m2 146.05 cm 98 % 98 % 76 /min 98.6 [degF] 35197.1 g 120/80 mm[Hg] Not Available [facility] 3 08:19:53 Social History Question Answer Notes LastModified by Organizat ion Details LastModified Time Tobacco Smoking Status Former Smoker Not Available [facility] 07/15/2022 08:18:59 What Is Your Level Of Caffeine Consumption? Occasional [id number] Information not available 07/15/2022 In The 14 Days Before Symptom Onset, Have You Had Close Contact With A Laboratory-confir med COVID-19 While That Case Was Ill? No MIGRATION.21952 [id number] Information not available 07/15/2022 In The 14 Days Before Symptom Onset, Have You Had Close Contact With A Person Who Is Under Investigation For COVID-19 While That Person Was Ill? No MIGRATION.12486 79799 Information not available 07/15/2022 What Type Of Diet Are You Following? REGULAR MIGRATION.80640 06093 Information not available 07/15/2022 When Did You Quit Smoking? 1-5yearssincel lawrenceette 1.5 Years Ago MIGRATION.73210 30828 Information not available 07/15/2022 Have You Ever Been Counseled For Unhealthy Alcohol Use? No MIGRATION.17186 68800 Information not available 07/15/2022 Do You Have Any Pets? No Information not available 09/02/2022 At What Age Did You Start Smoking Tobacco? 15 MIGRATION.18794 72196 Information not available 07/15/2022 Has Tobacco Cessation Counseling Been Provided? No MIGRATION.84894 03266 Information not available 07/15/2022 Have You Recently Traveled Abroad? No MIGRATION.57909 44001 Information not available 07/15/2022 Do You Have Any Dietary Restrictions? No MIGRATION.95216 29116 Information not available 07/15/2022 Sex: Unknown Functional Status Question Answer Note LastModified by Organizat ion Details LastModified Time Do you use any illicit or recreational drugs? No MIGRATION.[id number] 026 Information not available 07/15/2022 Do you or have you ever used any other forms of tobacco or nicotine? No MIGRATION.[id number] 026 Information not available 07/15/2022 What is your level of alcohol consumption? Occasional MIGRATION.[id number] 026 Information not available 07/15/2022 What is your exercise level? None MIGRATION.[id number] 026 Information not available 07/15/2022 Mental Status None recorded. Family History Relationship Description Onset Age of this Age Resolved Age Notes LastModified by Organization Details LastModified Time Mother Myocardial infarction [id number] [id number] Not available 07/15/2022 08:19:32 Mother Non-function ing kidney MIGRATION.180 [id number] Not available 07/15/2022 08:19:32 Brother Myocardial infarction MIGRATION.632 [id number] Not available 07/15/2022 08:19:32 Brother Malignant neoplasm of lung MIGRATION.662 [id number] Not available 07/15/2022 08:19:32 Medical History Condition Response BLINDNESS N RHEUMATIC FEVER N KIDNEY STONES N BLADDER PROBLEMS N MRSA N OTHER # 1 N POLIO N LUNG DISEASE/DISORDER N RADIATION / CHEMOTHERAPY N COPD N Other # 2 N BLOOD DISEASES N SURGERY N EAR OR HEARING PROBLEMS N MUMPS N FEMALE PROBLEMS / INFECTIONS N DEPRESSION (INCLUDING POST ) N BOWEL PROBLEMS N STROKE/TIA N THYROID [...] GLAUCOMA N FOOT PROBLEM N DIVERTICULITIS N SLEEP APNEA N CHICKENPOX N ALLERGIES/HAYFEVER N INFECTIOUS DISEASE N PROSTATE N HEART ARRHYTHMIA N INSOMNIA N HIGH CHOLESTEROL / HYPERLIPIDEMIA N EYE PROBLEMS N HYPERTHYROIDISM N EATING DISORDER N NEUROLOGICAL PROBLEMS N EDEMA N CHRONIC PAIN SYNDROME N HYPOTHYROIDISM N CAROTID BLOCKAGE N CONSTIPATION N BACK / NECK PROBLEMS N HAVE YOU BEEN HOSPITALIZED OR SEEN IN [facility] ER IN THE PAST YEAR ? [...] DISORDER N ALZHEIMER'S DISEASE N PAIN N DEMENTIA N HERPES N SEIZURES/EPILEPSY N HEADACHES/MIGRAINES N VASCULAR DISEASE N PACEMAKER N DIZZINESS N HEART DISEASE/HEART PROBLEMS N KIDNEY DISEASE N SCARLET FEVER N MULTIPLE SCLEROSIS N DEVELOPMENTAL OR BEHAVIORAL DISORDERS N MENTAL DISORDER/ILLNESS N CANCER: SPECIFY N CARDIAC ARRHYTHMIA N PNEUMONIA N ATRIAL FIBRILLATION N Gall Stones N PULMONARY EMBOLISM N AUTOIMMUNE DISEASE N Gynecological HistoryNo gynecological history recorded. Obstetrics History GPAL:G 0 P 0 0 0 0 Immunizations Vaccine Type Date Status Note Provider Nam e and Address Organization Details Recorded Time COVID-19, mRNA, LNP-S, PF, 100 mcg/0.5mL dose or 50 mcg/0.25mL dose 1 completed Not Available [facility] 07/15/2022 08:30:31 COVID-19, mRNA, LNP-S, PF, 100 mcg/0.5mL dose or 50 mcg/0.25mL dose 1 completed Not Available [facility] 07/15/2022 08:30:31 Influenza, split virus, quadrivalent, preservative 0 completed Not Available [facility] 07/15/2022 08:30:32 Influenza, split virus, trivalent, preservative 4 completed Not Available [facility] 07/15/2022 08:30:32 Tdap 4 completed Not Available [facility] 07/15/2022 08:30:32 Influenza, high-dose, quadrivalent, PF 2 completed Not Available [facility] 07/15/2022 08:30:32 Influenza, split virus, quadrivalent, PF 9 completed Not Available [facility] 07/15/2022 08:30:33 pneumococcal polysaccharide PPV23 9 completed Not Available [facility] 07/15/2022 08:30:33 Influenza, split virus, quadrivalent, preservative 5 completed Not Available [facility] 07/15/2022 08:30:33 Tdap 4 completed Not Available [facility] 07/15/2022 08:30:33 Influenza, split virus, trivalent, PF 4 completed Not Available [facility] 07/15/2022 08:30:33 Past Encounters Encounter ID Performer Location Encounter Start Date Encounter Closed Date Diagnosis/Indication Diagnosis SNOMED-CT Code Diagnosis ICD10 Code Diagnosis Note [id number] [facility] [address] [place] [address] 07/22/2020 00:00:00 07/22/2020 19:48:55 [id number] [facility] [address] [place] [place] [address] 08/08/2020 00:00:00 08/08/2020 14:27:25 [id number] [facility] [address] [place] [place] [address] 10/16/2020 00:00:00 10/16/2020 15:58:33 [id number] Vivi Duff MD [facility] [address] [place] [address] 02/03/2021 00:00:00 02/03/2021 13:40:52 [id number] [facility] [address] [place] [address] 04/18/2021 00:00:00 04/18/2021 16:02:05 [id number] [facility] [place] [address] [place] [address] 05/29/2021 00:00:00 05/29/2021 13:30:29 [id number] [facility] [address] [place] [address] 08/11/2021 00:00:00 08/11/2021 12:27:27 [id number] [facility] [place] [address] [place] [address] 09/22/2021 00:00:00 09/22/2021 16:04:46 [id number] Pietro Pantoja MD S_[facility] [place] [address] [place] [address] 11/06/2021 00:00:00 11/06/2021 12:20:44 [id number] [facility] [address] [place] [address] 02/18/2022 00:00:00 02/18/2022 14:33:47 [id number] MITZY Ahumada S[facility] [place] [address] [place] [address] 03/04/2022 00:00:00 03/04/2022 12:57:19 [id number] Vivi Duff MD [facility] Family Practice [facility] [address] [place] [address] 03/25/2022 00:00:00 03/25/2022 16:45:27 [id number] MITZY Ahumada S[facility] [place] [address] [place] [address] 07/06/2022 00:00:00 07/06/2022 15:15:47 [id number] MITZY Ahumada S[facility] [place] [address] [place] [address] 09/02/2022 10:05:34 09/02/2022 10:58:06 Severe chronic obstructive pulmonary disease 799755051 J44.9 PFT 04/2021 with severe obstructio n, in chartConti nue Trelegy Ellipta 200Re-inst ructed on techniqueC ontinue Albuterol PRN.She is aware of indication s for useOxygen at 2 liters with sleep - [place] WNL in chartAlpha 1 MM normalResu me pulmonary rehab when improvedPL ans to repeat PFT when at baselineRT C in 3 months, PRN for concerns Multiple n odules of lung 944950777 R91.[address] chest, very small, less than 3 mm (per dictation, I do not have CD).Associ ated with mucous pluggingIn crease frequency of flutter valveNo adenopathy Repeat due 04/2022 with resolution of nodules Dependence on supplemental oxygen 7533932557 07 Z99.81 2 liters with sleep, discussed 100% compliance and the risks of hypoxia including deathLast walk test 04/2021 was WNL. although she did desaturate to 88% transientl yPlans to re-walk when at baseline Immunoglob ulin deficiency 846561724 D80.9 IGG subclasses low, also with elevated IGEHas seen Dr Samuel Environmental allergy 42 [id number] T78.49XD IGG1 and 2 slightly low.IGE elevated and RAST with reactions to dust mites and cats.She is aware to take allergy pill dailyConti laura [facility], I have encouraged her to make follow up appointmen t Ex-smoker [id number] Z87.89 1 Repeat screening due 04/2023 [id number] Alexandra Alvarez, [facility] Pulmonolo gy [place] [address] [place] [address] 09/24/2022 11:07:21 09/24/2022 15:44:12 Acute exacerbation of chronic obstructive pulmonary disease [id number] J44.1 Has completed one round of prednisone and AugmentinC OVID testing negativeSy mptoms persistNeb ulizer s6tHdgnxnz Tessalon PRNPrednis one and cipro - she tells me she has had this previously with no reactionHy drate - monitor urine output and colorRestD iscussed S/S that require emergency evaluation Severe chr onic obstructive pulmonary disease 020602125 J44.9 PFT 04/2021 with severe obstructio n, in chartConti nue Trelegy Ellipta 200Continu e AlbuterolS he is aware of indication s for useOxygen at 2 liters with sleep - [place] WNL in chart [id number] Alexandra Alvarez, [facility] Pulmonolo gy [place] [address] [place] [address] 03/03/2023 11:25:21 03/03/2023 12:15:20 Severe chronic obstructive pulmonary disease [id number] J44.9 PFT 04/2021 with severe obstructio n, in chartConti nue Trelegy Ellipta 200Continu e Albuterol PRN.She is aware of indication s for useShe has nebulizer for PRN useOxygen at 2 liters with sleep - [place] WNL in chartAlpha 1 MM normalResu me pulmonary rehab when improvedPl ans to repeat PFT when at baselineAd vised vaccines this fall Multiple n odules of lung [id number] R91.[address] chest, very small, less than 3 mm (per dictation, I do not have CD).Associ ated with mucous pluggingIn crease frequency of flutter valveNo adenopathy Repeat due 04/2022 with resolution of nodulesCT 08/2022:Mi ld emphysema No nodule, mass or enlarged lymph nodes Dependence on supplemental oxygen [id number] 07 Z99.81 2 liters with sleep, discussed 100% compliance and the risks of hypoxia including deathLast walk test 04/2021 was WNL, although she did desaturate to 88% transientl yPlans to re-walk when at baselineSa turations 96% today RA at rest Immunoglob ulin deficiency [id number] D80.9 IGG subclasses low, also with elevated IGEHas seen Dr Samuel with evaluation Environmental allergy 42 5374912 T78.49XD IGG1 and 2 slightly low.IGE elevated and RAST with reactions to dust mites and cats.Aller gy pill dailyConti nulaura [facility]Maria [facility] Ex-smoker [id number] Z87.89 1 Quit smoking 2 years agoCT as detailed aboveRepea t screening due 08/2023 Health Concerns Section Related Observation LastModified by Organization Detai ls LastModified Time None Recorded Concern Status LastModified by Organization Details LastModified Time None Recorded Advance Directives Directive None Recorded Payers Insurance Date Sequence Insurance Name Policy Number Policy Alejandro Covered Member ID Alejandro Member ID Guarantor Name 02/28/2023 1 [place] Gloria Cannon Mariama Reyes [id number] Gloria Cannon Mariama-Reyes 02/28/2023 2 [facility] ([place] [id number] Gal V Reyes [id number] Gloria Cannon Mariama-Reyes Notes Date Note Type Note Provider [...] productiveDenies wheezing and chest painHas not seen assistant signal maintainer recentlyNo hemoptysis or unintentional weight loss.Respiratory symptoms are not waking her at night.Mild sinus congestionCompliant with oxygen, she has good use and clinical benefit MITZY Ahumada [address] [address], [place], [address], [facility] 09/02/2022 14:58:43 3 text/html Gloria presents today [...] up sweaty.No known sick contacts MITZY Ahumada [address], [place], [address], [employer] 09/24/2022 14:57:06 3 text/html Ms Leslie presents [...] clinical benefitNo respiratory exacerbation since September 2022 Alexandra Alvarez, [facility] [address], [facility] [address], [place], [address], [employer] [facility] 03/03/2023 13:51:01 OBGyn Episode No OBEpisode recorded.
--- OUTSIDE RECORDS SUMMARY | 2024-11-20 14:43 | XMS_ITS | Clinical Summary ---
Author Organization 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 KETTLE OPERATOR Gender Identity Not on file Sexual Orientation Not on file Obstetrics History Last Filed Vital Signs Vital Sign Reading Time Taken Comments Blood Pressure 152/98 11/26/2022 3:57 PM CDT Pulse 53 09/30/2022 10:21 AM CDT Temperature 36.3 C (97.3 F) 07/23/2022 10:25 AM POLYMERIZATION KETTLE OPERATOR Respiratory Rate 16 07/23/2022 10:25 AM POLYMERIZATION KETTLE OPERATOR Oxygen Saturation 95% 09/30/2022 10:21 AM [...] Completed 022, 04/10/2020, 06/07/2018 Insurance MEDICARE [facility] Care Teams Computer Forensics Investigator Relationship Specialty Start Date End Date Pamela Araiza NP [facility] [facility] [place] [address] PCP - General Nurse Practitioner 11/26/22
--- OUTSIDE RECORDS SUMMARY | 2024-11-20 14:44 | XMS_ITS | Clinical Summary ---
Author Organization [facility] Address [facility] [place] [address] Care Team Providers Care Flame Hardening Machine Setter Name Role Phone Jose G Pamela BYRON Primary Care Provider [phone] Allergies Active Allergy Reactions Criticality Noted Date [...] Active vitamin D3, cholecalciferol , 1.25 MG (88603 UT) capsule Take 50,000 Units by mouth [...] Comments Blood Pressure 140/82 07/05/2023 4:11 PM DISTRICT TRAFFIC CHIEF Pulse 80 07/05/2023 4:11 PM DISTRICT TRAFFIC CHIEF Temperature 36.5 C (97.7 F) 07/05/2023 4:11 PM DISTRICT TRAFFIC CHIEF Respiratory Rate 20 07/05/2023 4:11 PM DISTRICT TRAFFIC CHIEF Oxygen Saturation 96% 07/05/2023 4:11 PM DISTRICT TRAFFIC CHIEF Inhaled Oxygen Concentration - - Weight 73.9 kg (163 lb) 07/05/2023 4:11 PM DISTRICT TRAFFIC CHIEF Height 144.8 cm (4' 9) 07/05/2023 4:11 PM DISTRICT TRAFFIC CHIEF Body Mass Index 35.27 07/05/2023 4:11 PM DISTRICT TRAFFIC CHIEF Plan of Treatment Health Maintenance Due Date Last Done Comments Colorectal Cancer Screening Colonoscopy ( Years) 1953 Mammogram Screening 1993 Annual Medicare Wellness Visit 2018 Dexa Scan (General) 2018 Zoster Vaccines (2 of 2) 06/05/2020 04/10/2020 DTaP, Tdap and Td Vaccines ( 3 - Td or Tdap) 06/26/2023 06/26/2013, 06/19/2013 COVID-19 Vaccine (3 - 2023-2 5 season) 2024 10/01/2020, 08/28/2020 PHQ-2 (Physician [place]) 05/17/2024 RSV Immunization or 60+ Years (1 [...] age to complete this topic Insurance MEDICARE [facility] Care Teams Flame Hardening Machine Setter Relationship Specialty Start Date End Date Pamela Araiza NP [address] [place] [address] PCP - General NURSE PRACTITIONER 09/14/19
--- OUTSIDE RECORDS SUMMARY | 2024-11-20 14:44 | XMS_ITS | Encounter Summary ---
Author Organization [facility] Address [facility] [place] [address] Care Team Providers Care Methods Specialist Engineer Name Role Phone Pamela Araiza NP Primary Care Provider [phone] Encounter Details Date Type Department Care Team (Late st Contact Info) Description 10/22/[address] [facility] CONVERSION [address] [place] [address] , Generic Conversion, Social History Tobacco Use [...] on filedocumented in this encounter Care Teams Methods Specialist Engineer Relationship Specialty Start Date End Date Pamela Araiza NP [address] [place] [address] PCP - General NURSE PRACTITIONER 09/14/19 documented as of this encounter
--- OUTSIDE RECORDS SUMMARY | 2024-11-20 14:44 | XMS_ITS | Patient Health Record ---
Author Organization [facility] [place] ([address]) Address [address] [place] [address] Care Team Providers Care Urology Surgeon Name Role Phone Pamela Moe Primary Care Provider Yesika Jabier Sloan Unavailable [phone] Allergies Allergen (clinical drug ingredient) Drug/Non Drug [...] review and pick correct strength-formulati on from [employer] options. If intended option is not shown, [...] mcg-25 mcg/inh 1 puff(s) inhaled once a day; Duration: 30 day(s) Active Trelegy Ellipta 200 MCG-62.5 MCG-25 MCG/INH 1 PUFF(S) INHALED ONCE A DAY; Duration: 30 DAY(S) *Please review and pick correct strength-formulati on from [employer] options. If intended option is not shown, discontinue and re-order from Quick Search* Active Singulair 10 MG 1 tab(s) orally once a day Active ProAir Digihaler 90 MCG/INH 2 PUFF(S) INHALED EVERY 6 HOURS *Please review and pick correct strength-formulati on from [employer] options. If intended option is not shown, [...] Status Risk Notes Problem Vitamin D deficiency (69866326) Vitamin D deficiency, unspecified (E55.9) Active confirmed Problem Chronic allergic conjunctivitis (68142904) Other chronic allergic conjunctivitis (H10.45) Active confirmed Problem Allergic rhinitis caused by pollen (disorder) (10401770) Allergic rhinitis due to pollen (J30.1) Active confirmed Problem Allergic rhinitis (34799733) Other allergic rhinitis (J30.89) Active confirmed Problem Chronic rhinitis (51208779) Chronic rhinitis (J31.0) Active confirmed Problem Chronic obstructive pulmonary disease (97806824) Chronic obstructive pulmonary disease, unspecified (J44.9) Active confirmed Problem Mild intermittent asthma (006492212) Mild intermittent asthma, uncomplicated (J45.20) Active confirmed Problem Uncomplicated mild persistent asthma (147088670) Mild persistent asthma, uncomplicated (J45.30) Active confirmed Problem Uncomplicated moderate persistent asthma (759454766) Moderate persistent asthma, uncomplicated (J45.40) Active confirmed Problem Uncomplicated severe persistent asthma (711122337) Severe persistent asthma, uncomplicated (J45.50) Active confirmed Problem Hyperglycemia (40321633) Hyperglycemia, unspecified (R73.9) Active confirmed Problem Allergic rhinitis caused by pollen (disorder) (60587488) Allergic rhinitis due to pollen (J30.1) Active confirmed Problem Allergic rhinitis caused by animal hair and dander (328417436362872) Allergic rhinitis due to animal (cat) (dog) hair and dander (J30.81) Active confirmed Problem Allergic rhinitis (58872056) Other allergic rhinitis (J30.89) Active confirmed Problem Chronic sinusitis (02815936) Other chronic sinusitis (J32.8) Active confirmed Problem Vitamin D deficiency (28861594) Vitamin D deficiency, unspecified (E55.9) Active confirmed Problem History of pneumonia (959101919) Personal history of pneumonia (recurrent) (Z87.01) Active confirmed Problem Cough (finding) (08238389) Cough, unspecified (R05.9) Active confirmed Plan Of Treatment Pending Test Test Name Order Date -Vitamin D, 25-Hydroxy 10/09/2021 -Tetanus/Diphtheria Ab 10/09/2021 Insurance Providers Payer Name Payer Address Payer Phone Subscriber Number Group Number Insured Name Patient Relationship to Insured Coverage Start Date Coverage End Date [employer] (Medicare) Attention Claims [address] [place] [address] [phone] [id number] Gloria Hutson Self - patient is the insured [facility] [address] [place] [address] [phone] [id number] Gal Reyes Spouse - patient is the spouse of the insured Medical (General) History Medical History History ICD Code Chronic obstructive pulmonary disease, u nspecified J44.9 Hyperglycemia, unspecified R73.9 Vitamin D deficiency, unspecified E55.9 Surgical History Surgery Date(Month/Year) appendectomy leg surgery Hospitalization History Reason Date(Month/Year) pneumonia 2010
[2024-11-20 16:19] LABS: Alanine Aminotransferase 14 U/L (6-35); Albumin Level 4.2 g/dL (3.5-5.1); Alkaline Phosphatase 84 U/L (38-126); Aspartate Amino Transferase 30 U/L (14-36); Bilirubin,Total 0.4 mg/dL (0.2-1.3); Total Protein 7.3 g/dL (6.3-8.2)
== END 2024-11-20 14:37 | disposition home or self-care (01) ==
LOC: ANHLAB 14:40
PROVIDERS: PCP Nurse Practitioner Adult Health
DX: B35.1 Tinea unguium (principal)
CPT/HCPCS: 36415; 80076

== ENCOUNTER 2024-12-21 13:45 | Outpatient (CLI) | payer MEDICARE, BC, SELFPAY ==
--- OUTSIDE RECORDS SUMMARY | 2024-12-21 13:49 | XMS_ITS | Clinical Summary ---
Author Organization [facility] Address [address] [place] [address] Care Team Providers Care Bundle Helper Name Role Phone Pamela Araiza NP Primary Care Provider [phone] Allergies Active Allergy Reactions Criticality Noted Date [...] on file Legal Sex Female 7:54 AM BACK TUFTER Gender Identity Not on file Sexual Orientation Not on file Obstetrics History Last Filed Vital Signs Vital Sign Reading Time Taken Comments Blood Pressure 152/98 11/26/2022 3:57 PM CDT Pulse 53 09/30/2022 10:21 AM CDT Temperature 36.3 C (97.3 F) 07/23/2022 10:25 AM BACK TUFTER Respiratory Rate 16 07/23/2022 10:25 AM BACK TUFTER Oxygen Saturation 95% 09/30/2022 10:21 AM CDT [...] 08/26/2020, Additional history exists Influenza Vaccine (#1) 2025 2, 02/19/2020, 02/17/2020, Additional history exists Pneumococcal vaccine 65+ Completed 022, 04/10/2020, 06/07/2018 Insurance MEDICARE MEDICARE [facility] MEDICARE [facility] MEDICARE [facility] Care Teams Bundle Helper Relationship Specialty Start Date End Date Pamela Araiza NP [facility] [place] [address] PCP - General Nurse Practitioner 11/26/22
--- OUTSIDE RECORDS SUMMARY | 2024-12-21 13:49 | XMS_ITS | Patient Health Record ---
Author Organization [facility] [place] ([address]) Address [address] [place] [address] Care Team Providers Care Marker Assembler Name Role Phone Pamela Moe Primary Care Provider Yesika Jabier Sloan Unavailable [phone] Allergies Allergen (clinical drug ingredient) Drug/Non Drug [...] review and pick correct strength-formulati on from [employer] options. If intended option is not shown, [...] review and pick correct strength-formulati on from [employer] options. If intended option is not shown, discontinue and re-order from Quick Search* Active Singulair 10 MG 1 tab(s) orally once a day Active ProAir Digihaler 90 MCG/INH 2 PUFF(S) INHALED EVERY 6 HOURS *Please review and pick correct strength-formulati on from [employer] options. If intended option is not shown, [...] Status Risk Notes Problem Vitamin D deficiency (19804386) Vitamin D deficiency, unspecified (E55.9) Active confirmed Problem Chronic allergic conjunctivitis (35031475) Other chronic allergic conjunctivitis (H10.45) Active confirmed Problem Allergic rhinitis caused by pollen (disorder) (27872077) Allergic rhinitis due to pollen (J30.1) Active confirmed Problem Allergic rhinitis (36932713) Other allergic rhinitis (J30.89) Active confirmed Problem Chronic rhinitis (38263599) Chronic rhinitis (J31.0) Active confirmed Problem Chronic obstructive pulmonary disease (36406202) Chronic obstructive pulmonary disease, unspecified (J44.9) Active confirmed Problem Mild intermittent asthma (054870815) Mild intermittent asthma, uncomplicated (J45.20) Active confirmed Problem Uncomplicated mild persistent asthma (884133114) Mild persistent asthma, uncomplicated (J45.30) Active confirmed Problem Uncomplicated moderate persistent asthma (805327215) Moderate persistent asthma, uncomplicated (J45.40) Active confirmed Problem Uncomplicated severe persistent asthma (796839149) Severe persistent asthma, uncomplicated (J45.50) Active confirmed Problem Hyperglycemia (81892126) Hyperglycemia, unspecified (R73.9) Active confirmed Problem Allergic rhinitis caused by pollen (disorder) (31960872) Allergic rhinitis due to pollen (J30.1) Active confirmed Problem Allergic rhinitis caused by animal hair and dander (374922124410145) Allergic rhinitis due to animal (cat) (dog) hair and dander (J30.81) Active confirmed Problem Allergic rhinitis (98629409) Other allergic rhinitis (J30.89) Active confirmed Problem Chronic sinusitis (33742884) Other chronic sinusitis (J32.8) Active confirmed Problem Vitamin D deficiency (37755333) Vitamin D deficiency, unspecified (E55.9) Active confirmed Problem History of pneumonia (497294379) Personal history of pneumonia (recurrent) (Z87.01) Active confirmed Problem Cough (finding) (40167818) Cough, unspecified (R05.9) Active confirmed Plan Of Treatment Pending Test Test Name Order Date -Vitamin D, 25-Hydroxy 10/09/2021 -Tetanus/Diphtheria Ab 10/09/2021 Insurance Providers Payer Name Payer Address Payer Phone Subscriber Number Group Number Insured Name Patient Relationship to Insured Coverage Start Date Coverage End Date [employer] (Medicare) Attention Claims [address] [place] [address] [id number] Gloria Hutson Self - patient is the insured [facility] [address] [place] [address] [id number] Gal Reyes Spouse - patient is the spouse of the insured Medical (General) History Medical History History ICD Code Chronic obstructive pulmonary disease, u nspecified J44.9 Hyperglycemia, unspecified R73.9 Vitamin D deficiency, unspecified E55.9 Surgical History Surgery Date(Month/Year) appendectomy leg surgery Hospitalization History Reason Date(Month/Year) pneumonia 2010
--- OUTSIDE RECORDS SUMMARY | 2024-12-21 13:49 | XMS_ITS | Clinical Summary ---
Author Organization [facility] Address [facility] [place] [address] Care Team Providers Care Pigment And Lacquer Mixer Name Role Phone Jose G Pamela BYRON Primary Care Provider [phone] Allergies Active Allergy Reactions Criticality Noted Date [...] Active vitamin D3, cholecalciferol , 1.25 MG (50602 UT) capsule Take 50,000 Units by mouth [...] Comments Blood Pressure 140/82 07/05/2023 4:11 PM TAX INVESTIGATOR Pulse 80 07/05/2023 4:11 PM TAX INVESTIGATOR Temperature 36.5 C (97.7 F) 07/05/2023 4:11 PM TAX INVESTIGATOR Respiratory Rate 20 07/05/2023 4:11 PM TAX INVESTIGATOR Oxygen Saturation 96% 07/05/2023 4:11 PM TAX INVESTIGATOR Inhaled Oxygen Concentration - - Weight 73.9 kg (163 lb) 07/05/2023 4:11 PM TAX INVESTIGATOR Height 144.8 cm (4' 9) 07/05/2023 4:11 PM TAX INVESTIGATOR Body Mass Index 35.27 07/05/2023 4:11 PM TAX INVESTIGATOR Plan of Treatment Health Maintenance Due Date Last Done Comments Colorectal Cancer Screening Colonoscopy ( Years) 1953 Mammogram Screening 1993 Annual Medicare Wellness Visit 2018 Dexa Scan (General) 2018 Zoster Vaccines (2 of 2) 06/05/2020 04/10/2020 DTaP, Tdap and Td Vaccines ( 3 - Td or Tdap) 06/26/2023 06/26/2013, 06/19/2013 COVID-19 Vaccine (3 - 2023-2 5 season) 2024 10/01/2020, 08/28/2020 PHQ-2 (Physician [place]) 05/17/2024 RSV Immunization or 60+ Years (1 [...] age to complete this topic Insurance MEDICARE [facility] Care Teams Pigment And Lacquer Mixer Relationship Specialty Start Date End Date Pamela Araiza NP [address] [place] [address] PCP - General NURSE PRACTITIONER 09/14/19
--- OUTSIDE RECORDS SUMMARY | 2024-12-21 13:49 | XMS_ITS | Encounter Summary ---
Author Organization [facility] Address [facility] [place] [address] Care Team Providers Care Professional Nursing Assistant Name Role Phone Pamela Araiza NP Primary Care Provider [phone] Encounter Details Date Type Department Care Team (Late st Contact Info) Description 10/22/2018 Abstract [facility] CONVERSION [address] [place] [address] , Generic Conversion, Social History Tobacco Use [...] on filedocumented in this encounter Care Teams Professional Nursing Assistant Relationship Specialty Start Date End Date Pamela Araiza NP [address] [place] [address] PCP - General NURSE PRACTITIONER 09/14/19 documented as of this encounter
--- NOTE | 2024-12-21 15:15 | P.PCNPFT_ITS ---
PFT Procedure Performed PFT Procedure Performed Spirometry with Pre/Post Bronchodilator Plethysmography (Lung Vol) Diffusing Cap (DLCO) Flow Vol Loop PFT Interpretation This is a pulmonary function test with pre and post-bronchodilator spirometry, plethysmography and diffusing capacity. The test was performed and results interpreted in accordance with the 2019 and 2005 ATS/ERS Task Force guidelines respectively using the Global Lung Function Initiative-2012 reference equations. Patient demonstrated good effort and cooperation. Reproducibility criteria were met. The quality of the pre bronchodilator spirometry maneuver was Grade B and post bronchodilator spirometry maneuver was Grade A. Findings: Spirometry: There is decreased maximal expiratory airflow at all lung volumes with a concave expiratory flow tracing. The contour the inspiratory flow tracing is normal. The pre bronchodilator FVC is 1.35 L, 62% predicted. The pre bronchodilator FEV1 is 0.75 L, 44% predicted. The pre bronchodilator FEV1: FVC ratio is 56%. The post bronchodilator FVC is 1.55 L, representing a 15% increase. The post bronchodilator FEV1 is 0.95 L, representing a 26% increase. The post bronchodilator FEV1: FVC ratio is 61%. Plethysmography: The total lung capacity is 4.28 L, 107% predicted. The functi onal residual capacity is 3.00 L, 133% predicted. The residual volume is 2.81 L, 151% predicted. The residual volume: Total lung capacity ratio is 66%. Diffusing capacity: The diffusing capacity unadjusted for hemoglobin and carboxyhemoglobin is 8.9, 51% predicted. The diffusing capacity adjusted for alveolar volume is 3.32, 72% predicted. In comparison to previous pulmonary function testing on 05/14/2021, the post bronchodilator FVC is unchanged from 1.48 L to 1.55 L. The post bronchodilator FEV1 is unchanged from 0.90 L to 0.95 L. The total lung capacity is increased from 3.74 L to 4.28 L. The functional residual capacity is increased from 2.48 L to 3.00 L. The residual volume is increased from 2.30 L to 2.81 L. The residual volume: Total lung capacity ratio is unchanged from 62% to 66%. The diffusing capacity unadjusted for hemoglobin and carboxyhemoglobin is unchanged from 9.9 to 8.9. The diffusing capacity adjusted for alveolar volume is unchanged from 3.80 to 3.32. Impression: There is a severe obstructive abnormality. There is significant improvement after inhaling a single dose of albuterol. The increase in residual volume to total lung volume ratio is consistent with hyperinflation from an obstructive abnormality. The diffusing capacity unadjusted for hemoglobin and carboxyhemoglobin is moderately decreased and normalizes when adjusted for alveolar volume. In comparison to previous pulmonary function testing on 05/14/2021, there has been a greater than anticipated time dependent increase in the total lung capacity, functional residual capacity and residual volume with no significant change in the FVC, FEV1 or diffusing capacity. Clinical correlation is recommended.
== END 2024-12-21 13:46 | disposition home or self-care (01) ==
PROVIDERS: PCP Nurse Practitioner Adult Health; Visit Provider Nurse Practitioner Family
DX: J44.9 Chronic obstructive pulmonary disease, unspecified (principal); R94.2 Abnormal results of pulmonary function studies
CPT/HCPCS: 94060; 94726; 94729

== ENCOUNTER 2025-01-29 13:38 | Outpatient (CLI) | payer MEDICARE, BC, SELFPAY ==
--- NOTE | ~2025-01-29 | XR_ITS ---
EXAM/ PROCEDURE: XR tibia fibula LT 2V - 01/29/2025 13:40 CDT HISTORY: 69 years old Female with chronic lt leg pain, worsening COMPARISON: None available TECHNIQUE: Three view(s) FINDINGS/ IMPRESSION: There are no fractures or dislocations.Joint space narrowing, subchondral sclerosis, subchondral cyst formation and osteophyte formation, compatible with mild osteoarthritis. ORIF of the left tibia. Intact hardware and no loosening. Reviewed, dictated and finalized at location N.
--- NOTE | ~2025-01-29 | XR_ITS ---
EXAMINATION: XR knee LT 3V, 01/29/2025 13:40 CDT HISTORY: chronic lt leg pain, worsening COMPARISON: No comparisons available. Findings: Fixation noted of the proximal tibia, no fracture is identified. No significant degenerative changes. Soft tissues unremarkable. Impression: No acute fracture or malalignment. Reviewed, dictated and finalized at location A. Impression: No acute fracture or malalignment.
--- OUTSIDE RECORDS SUMMARY | 2025-01-29 16:12 | XMS_ITS | Clinical Summary ---
Author Organization [facility] Address [facility] [place] [address] Care Team Providers Care Copy Chaser Name Role Phone Jose G Pamela BYRON Primary Care Provider [phone] Allergies Active Allergy Reactions Criticality Noted Date [...] Active vitamin D3, cholecalciferol , 1.25 MG (73527 UT) capsule Take 50,000 Units by mouth [...] Comments Blood Pressure 140/82 07/05/2023 4:[address] MAGISTRATE Pulse 80 07/05/2023 4:[address] MAGISTRATE Temperature 36.5 C (97.7 F) 07/05/2023 4:[address] MAGISTRATE Respiratory Rate 20 07/05/2023 4:[address] MAGISTRATE Oxygen Saturation 96% 07/05/2023 4:[address] MAGISTRATE Inhaled Oxygen Concentration - - Weight 73.9 kg (163 lb) 07/05/2023 4:[address] MAGISTRATE Height 144.8 cm (4' 9) 07/05/2023 4:[address] MAGISTRATE Body Mass Index 35.27 07/05/2023 4:[address] MAGISTRATE Plan of Treatment Health Maintenance Due Date Last Done Comments Colorectal Cancer Screening Colonoscopy ( Years) 1953 Mammogram Screening 1993 Annual Medicare Wellness Visit 2018 Dexa Scan (General) 2018 Zoster Vaccines (2 of 2) 06/05/2020 04/10/2020 DTaP, Tdap and Td Vaccines ( 3 - Td or Tdap) 06/26/2023 06/26/2013, 06/19/2013 PHQ-2 (Physician [place]) 05/17/2024 COVID-19 Vaccine (3 - 2024-2 6 season) 2025 10/01/2020, 08/28/2020 RSV Immunization or 60+ Years (1 - [...] age to complete this topic Insurance MEDICARE [facility] Care Teams Copy Chaser Relationship Specialty Start Date End Date Pamela Araiza NP [address] [place] [address] PCP - General NURSE PRACTITIONER 09/14/19
--- OUTSIDE RECORDS SUMMARY | 2025-01-29 16:12 | XMS_ITS | Clinical Summary ---
Author Organization [facility] Address [address] [place] [address] Care Team Providers Care Sport Psychologist Name Role Phone Pamela Araiza NP Primary Care Provider [phone] Allergies Active Allergy Reactions Criticality Noted Date [...] on file Legal Sex Female 7:54 AM RADIUS CORNER MACHINE OPERATOR Gender Identity Not on file Sexual Orientation Not on file Obstetrics History Last Filed Vital Signs Vital Sign Reading Time Taken Comments Blood Pressure 152/98 11/26/2022 3:57 PM CDT Pulse 53 09/30/2022 10:21 AM CDT Temperature 36.3 C (97.3 F) 07/23/2022 10:25 AM RADIUS CORNER MACHINE OPERATOR Respiratory Rate 16 07/23/2022 10:25 AM RADIUS CORNER MACHINE OPERATOR Oxygen Saturation 95% 09/30/2022 10:21 [...] Fall Risk Assessment 07/24/2023 07/23/2022 Covid-19 Vaccine (2024-2 6 season) 2025 10/01/2020, 08/28/2020, 08/26/2020, Additional history exists Influenza Vaccine (#1) 2025 2, 02/19/2020, 02/17/2020, Additional history exists Pneumococcal vaccine 65+ Completed 022, 04/10/2020, 06/07/2018 Insurance MEDICARE MEDICARE [facility] MEDICARE [facility] MEDICARE [facility] Care Teams Sport Psychologist Relationship Specialty Start Date End Date Pamela Araiza NP [facility] [place] [address] PCP - General Nurse Practitioner 11/26/22
--- OUTSIDE RECORDS SUMMARY | 2025-01-29 16:12 | XMS_ITS | Encounter Summary ---
Author Organization [facility] Address [facility] [place] [address] Care Team Providers Care Hand Laster Name Role Phone Pamela Araiza NP Primary Care Provider Encounter Details Date Type Department Care Team (Late st Contact Info) Description 10/22/2018 Abstract [facility] CONVERSION [address] [place] [address] , Generic Conversion, Social History Tobacco Use [...] on filedocumented in this encounter Care Teams Hand Laster Relationship Specialty Start Date End Date Pamela Araiza NP [address] [place] [address] PCP - General NURSE PRACTITIONER 09/14/19 documented as of this encounter
== END 2025-01-29 13:39 | disposition home or self-care (01) ==
LOC: ANHBWCIMG 13:40
PROVIDERS: PCP Nurse Practitioner Adult Health; Visit Provider Nurse Practitioner Adult Health
DX: M79.605 Pain in left leg (principal); M25.562 Pain in left knee; Z98.890 Other specified postprocedural states
CPT/HCPCS: 73562; 73590

== ENCOUNTER 2025-02-22 08:37 | Outpatient (CLI) | payer MEDICARE, BC, SELFPAY ==
--- OUTSIDE RECORDS SUMMARY | 2023-10-30 16:30 | XMS_ITS ---
Author Organization [facility] [place] ([address]) Address [address] [place] [address] Care Team Providers Care Order Packer Name Role Phone Pamela Moe Primary Care Provider Yesika Jabier Sloan Unavailable [phone] ZZ-Migration, Provider Unavailable Unavailab le Allergies Allergen (clinical drug ingredient) Drug/Non Drug Allergy documented on EMR Reaction Allergy Type Onset Date Status IV CONTRAST DYE (uncoded) hives Allergy Active Levaquin hives Drug Allergy Active Sulfamethoxazole other reaction Drug Allergy Active REASON FOR VISIT [facility] To [facility] Conversion Encounter Medications Medication SIG (Take, Route, Frequency, Duration) Notes Start Date End Date Status Vitamin D3 50 MCG 1 TAB(S) ORALLY ONCE A DAY *Please review and pick correct [facility]ulati [facility]. If intended option is not shown, discontinue and re-order from Quick Search* Active OZEMPIC 2 MG/1.5 ML (0.25 MG OR 0.5 MG DOSE) DIRECTED SUBCUTANEOUSLY ONCE A WEEK *Please review for potential replacement for e-prescription and drug interaction check* Active Trelegy Ellipta 200 MCG-62.5 MCG-25 MCG/INH 1 PUFF(S) INHALED ONCE A DAY; Duration: 30 DAY(S) *Please review and pick correct strength-formulati [facility]. If intended option is not shown, discontinue and re-order from Quick Search* Active Singulair 10 MG 1 tab(s) orally once a day Active ProAir Digihaler 90 MCG/INH 2 PUFF(S) INHALED EVERY 6 HOURS *Please review and pick correct strength-formulati on from [employer] options. If intended option is not shown, discontinue and re-order from Quick Search* Active Claritin 10 MG 1 tab(s) orally once a day Active Encounters Encounter Location Date Provider Diagnosis [facility] [place] [address] 10/30/2023 Provider ZZ-Migration Cough, unspecified R05.9 ; Vitamin D deficiency, unspecified E55.9 and Other allergic rhinitis J30.89 Assessments Encounter Date Diagnosis (ICD Code) Assessment Notes Treatment Notes Treatment Clinical Notes Section Notes 10/30/2023 Cough, unspecified (ICD-10 - R05.9) 10/30/2023 Vitamin D deficiency, unspecified (ICD-10 - E55.9) 10/30/2023 Other allergic rhinitis (ICD-10 - J30.89) Plan Of Treatment Medication Medication Name Sig Start Date Stop Date Notes Vitamin D3 50 MCG 1 TAB(S) ORALLY ONCE A DAY *Please review and pick correct strength-formulation from [employer] options. If intended option is not shown, discontinue and re-order from Quick Search* OZEMPIC 2 MG/1.5 ML (0.25 MG OR 0.5 MG DOSE) DIRECTED SUBCUTANEOUSLY ONCE A WEEK *Please review for potential replacement for e-prescription and drug interaction check* Trelegy Ellipta 200 MCG-62.5 MCG-25 MCG/INH 1 PUFF(S) INHALED ONCE A DAY; Duration: 30 DAY(S) *Please review and pick correct strength-formulation from [employer] options. If intended option is not shown, discontinue and re-order from Quick Search* Singulair 10 MG 1 tab(s) orally once a day ProAir Digihaler 90 MCG/INH 2 PUFF(S) INHALED EVERY 6 HOURS *Please review and pick correct strength-formulation from [employer] options. If intended option is not shown, discontinue and re-order from Quick Search* Claritin 10 MG 1 tab(s) orally once a day Progress Notes * Gloria FELDERDOB: (69 yo F)Acc No.[id number]:10/30/2023 Patient: Eneida EDNARINDER Gloria REYES Provider: Mark aguirre Loren :1955 A ge:68 Y S ex:Female Date:10/30/2023 Address:[address] [place], [place] [id number] Pcp:Pamela Araiza, ANP- Subjective: * Chief Complaints: * 1 . [facility] To [facility] Conversion Encounter. * Medical History: * Allergies: L evaquin: hives - Allergy, Sulfamethoxazole: other reaction - Allergy, IV CONTRAST DYE: hives - Allergy. Objective: * Vitals: Assessment: * Assessment: 1. C ough, unspecified - R05.9 (Primary) 2 . V itamin D deficiency, unspecified - E55.9 3 . O ther allergic rhinitis - J30.89 Plan: * Treatment: 2. V itamin D deficiency, unspecified Continue Vitamin D3 TABLET, 50 MCG, 1 TAB(S), ORALLY, ONCE A DAY, Notes to Pharmacist: *Please review and pick correct strength[facility]ulation [facility]. If intended option is not shown, discontinue and re-order from Quick Search*. 3. O ther allergic rhinitis Continue Claritin Tablet, 10 MG, 1 tab(s), orally, once a day. 4. O thers Continue OZEMPIC SOLUTION, 2 MG/1.5 ML (0.25 MG OR 0.5 MG DOSE), DIRECTED, SUBCUTANEOUSLY, ONCE A WEEK, Notes to Pharmacist: *Please review for potential replacement for e-prescription and drug interaction check*. * Billing Information: * Visit Code: * Procedure Codes: * Electronic signature of Chintan RANDHAWA-Migration on 02/14/2025 at 07:53 AM CDT Sign off status: Pending * Provider: Mark nolanmerrick Migration Date: 0 10/30/2023 Generated for Liya jones/Lj/Tami on: 1 07:53 AM CDT
--- OUTSIDE RECORDS SUMMARY | 2025-02-14 07:54 | XMS_ITS | Clinical Summary ---
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 Gender Identity Not on file Sexual Orientation Not on file Obstetrics History Last Filed Vital Signs Vital Sign Reading Time Taken Comments Blood Pressure 152/98 11/26/2022 3:57 PM CDT Pulse 53 09/30/2022 10:21 AM CDT Temperature 36.3 C (97.3 F) 07/23/2022 10:25 AM CARD PROCESSING CLERK Respiratory Rate 16 07/23/2022 10:25 AM CARD PROCESSING CLERK Oxygen Saturation 95% 09/30/2022 10:21 AM CDT [...] Fall Risk Assessment 07/24/2023 07/23/2022 Covid-19 Vaccine (2024- 6 season) 2025 10/01/2020, 08/28/2020, 08/26/2020, Additional history exists Influenza Vaccine (#1) 2025 2, 02/19/2020, 02/17/2020, Additional history exists Pneumococcal vaccine 65+ Completed 022, 04/10/2020, 06/07/2018 Insurance MEDICARE MEDICARE [facility] MEDICARE [facility] MEDICARE [facility] Care Teams Hotel Assistant General Manager Relationship Specialty Start Date End Date Pamela Araiza NP [address] [place] [address] PCP - General Nurse Practitioner 11/26/22
--- OUTSIDE RECORDS SUMMARY | 2025-02-14 07:55 | XMS_ITS | Encounter Summary ---
Author Organization [facility] Address [facility] [place] [address] Care Team Providers Care Executive Vice President And Chief Operating Officer Name Role Phone Pmaela Araiza NP Primary Care Provider [phone] Encounter Details Date Type Department Care Team (Late st Contact Info) Description 10/22/2018 Abstract [facility] CONVERSION [address] [place] [address] , Generic Conversion, Social History Tobacco Use [...] on filedocumented in this encounter Care Teams Executive Vice President And Chief Operating Officer Relationship Specialty Start Date End Date Pamela Araiza NP [address] [place] [address] PCP - General NURSE PRACTITIONER 09/14/19 documented as of this encounter
--- OUTSIDE RECORDS SUMMARY | 2025-02-14 07:55 | XMS_ITS | Clinical Summary ---
Author Organization [facility] Address [facility] [place] [address] Care Team Providers Care Rf Test Engineer Name Role Phone Jose G Pamela BYRON Primary Care Provider [phone] Allergies Active Allergy Reactions Criticality Noted Date [...] Active vitamin D3, cholecalciferol , 1.25 MG (61306 UT) capsule Take 50,000 Units by mouth [...] Comments Blood Pressure 140/82 07/05/2023 4:11 PM FINAL EXPENSE AGENT Pulse 80 07/05/2023 4:11 PM FINAL EXPENSE AGENT Temperature 36.5 C (97.7 F) 07/05/2023 4:11 PM FINAL EXPENSE AGENT Respiratory Rate 20 07/05/2023 4:11 PM FINAL EXPENSE AGENT Oxygen Saturation 96% 07/05/2023 4:11 PM FINAL EXPENSE AGENT Inhaled Oxygen Concentration - - Weight 73.9 kg (163 lb) 07/05/2023 4:11 PM FINAL EXPENSE AGENT Height 144.8 cm (4' 9) 07/05/2023 4:11 PM FINAL EXPENSE AGENT Body Mass Index 35.27 07/05/2023 4:11 PM FINAL EXPENSE AGENT Plan of Treatment Health Maintenance Due Date Last Done Comments Colorectal Cancer Screening Colonoscopy ( Years) 1953 Mammogram Screening 1993 Annual Medicare Wellness Visit 2018 Dexa Scan (General) 2018 Zoster Vaccines (2 of 2) 06/05/2020 04/10/2020 DTaP, Tdap and Td Vaccines ( 3 - Td or Tdap) 06/26/2023 06/26/2013, 06/19/2013 PHQ-2 (Physician [place]) 05/17/2024 COVID-19 Vaccine (3 - 2024-2 6 [...] age to complete this topic Insurance MEDICARE [facility] Care Teams Rf Test Engineer Relationship Specialty Start Date End Date Pamela Araiza NP [address] [place] [address] PCP - General NURSE PRACTITIONER 09/14/19
--- NOTE | 2025-03-15 12:02 | WPDSLEEPSTUD ---
Sleep Study Date of Study: 02/22/25 <Yvrose Marin MD - Last Filed: 03/29/25 10:05> Ordering Provider: Saul Robledo APRN <Yvrose Marin MD - Last Filed: 03/29/25 10:05> Interpreting Physician: Yvrose Marin MD <Yvrose Marin MD - Last Filed: 03/29/25 10:05> Sleep Study Type: Polysomnogram <Yvrose Mairn MD - Last Filed: 03/29/25 10:05> Height: 1.47 m <Yvrose Marin MD - Last Filed: 03/29/25 10:05> Weight: 78.925 kg <Yvrose Marin MD - Last Filed: 03/29/25 10:05> Body Mass Index: 36.3 <Yvrose Marin MD - Last Filed: 03/29/25 10:05> 36.3 <Nargis Cesar DO - Last Filed: 03/26/25 10:03> Neck Circumference (inches): 15.5 <Yvrose Marin MD - Last Filed: 03/29/25 10:05> [place]: 12 <Yvrose Marin MD - Last Filed: 03/29/25 10:05> Reason for Sleep Study Hypersomnolence; the patient told the military administrative technician that she has had 2 prior sleep tests, does not wear PAP, would consider an oral appliance. <Yvrose Marin MD - Last Filed: 03/29/25 10:05> Sleep History Gloria Reyes is a 69-year-old woman with excessive daytime sleepiness. She occasionally wakes at night with heartburn, belching or coughing.??She occasionally snores, and occasionally this is loud enough that others complain. She frequently has trouble sleeping when she has a cold. She rarely wakes up gasping for breath during the night. She occasionally has breathing problems at night observed by others. She rarely sweats excessively at night. She occasionally notices her heart pounding or beating irregularly during the night. She occasionally falls asleep during the day. She occasionally falls asleep involuntarily, never falls asleep while driving. She never experiences loss of muscle tone with strong emotion. She never feels paralyzed on waking or falling asleep. She never experiences vivid dreams upon waking or falling asleep. She never feels afraid of going to sleep. She rarely has nightmares. She rarely recalls her dreams. She rarely has thoughts racing through her mind. She rarely feels sad or depressed. She occasionally feels anxiety. She never notices parts of her body jerk. She never kicks during the night. She occasionally feels crawling or aching feelings in her legs. She occasionally feels leg pain at night. She never has morning jaw pain, and never grinds her teeth at night. She occasionally feels bothered by pain during the day, is occasionally awakened by pain during the night. She occasionally wakes up feeling stiff in the morning, rarely wakes feeling sore or achy in the morning. She occasionally awakens with pain in her neck, spine, or joints. Normal bedtime is 10:00 p.m., falling asleep immediately at times, other times may require 1-2 hours to fall asleep. She typically awakens twice at night and may stay awake between 1 and 3 hours. While awake, she goes to the bathroom, may get a glass of water and if she can not get back to sleep, turn on the television. She wakes at 8:00 a.m., reports getting between 8 and 10 hours of sleep per night. her sleep habits are the same on weekends but these may change if her grandchildren stay with her on weekends. She only occasionally naps in the afternoon. A short nap lasting 10-15 minutes is not refreshing. She is tired for an hour after waking. She feels better in the afternoon compared to other times of day. 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 GERD (gastroesophageal reflux disease) Rectal polyp Diverticulosis Sleep apnea Pneumonia Bronchitis Migraines Obesity Renal impairment Chronic obstructive pulmonary disease <Yvrose Marin MD - Last Filed: 03/29/25 10:05> Surgical History Surgical History: Surgical History History of orthopedic surgery left leg fracture with jacky placement H/O: hysterectomy Hx of cholecystectomy History of appendectomy <Yvrose Marin MD - Last Filed: 03/29/25 10:05> Family History Family History: Family History Mother Family history of malignant neoplasm of kidney Sibling Lung cancer Heart disease Grandparent Heart disease Other Diabetes mellitus Family history of elevated blood lipids Family history of lung cancer Hypertension <Yvrose Marin MD - Last Filed: 03/29/25 10:05> Social History Social History: Social History Smoking status: Former smoker Alcohol intake: current Alcohol use details: every 6 months Substance use: never Substance use type: does not use Lack of Transportation: No Lack of Food: Never True Current Housing: I Have Housing Concerned About Future Housing: No Difficulty Paying Gas/Electric Bills: Decline to Answer Difficulty Paying for Meds: Decline to Answer Currently Unemployed: Decline to Answer Education: Decline to Answer Difficulty w/ Childcare or Family Care: Decline to Answer Living arrangements: with family Occupation/Education: retired Gender identity (if verbalized by the patient): Female Agree to blood products: Yes <Yvrose Marin MD - Last Filed: 03/29/25 10:05> Medications Home Medications: Home Medications ?Medication ?Instructions ?Recorded ?Confirmed ?Type ergocalciferol (vitamin D2) 1,250 50,000 unit PO WEEKLY #12 caps 11/09/23 01/29/25 Rx mcg (50,000 unit) capsule hydrocodone 5 mg-acetaminophen 325 1 tablet PO Q8H PRN pain 3 days #9 04/22/24 01/29/25 Rx mg tablet tabs tamsulosin 0.4 mg capsule (Flomax) 0.4 mg PO DAILY 5 days #5 caps 04/22/24 01/29/25 Rx albuterol sulfate 90 mcg/actuation 1 puff inhalation Q4H PRN 08/01/24 01/29/25 Rx aerosol inhaler shortness of breath or wheezing #8.5 grams albuterol sulfate 2.5 mg/0.5 mL 2.5 mg (0.5 mL) inhalation Q4H PRN 08/03/24 01/29/25 Rx solution for nebulization bronchospasm #30 ea inhalational spacing device #10 ea 08/07/24 01/29/25 Rx (Aerochamber MV spacer) cholecalciferol (vitamin D3) 1,250 1,250 mcg PO WEEKLY #12 caps 09/21/24 01/29/25 Rx mcg (50,000 unit) capsule cyanocobalamin (vitamin B-12) 1,000 mcg sublingual DAILY #90 tabs 09/21/24 01/29/25 Rx 1,000 mcg sublingual tablet fluticasone fur. 200 mcg-umeclid See Rx Instructions .Route 11/09/24 01/29/25 Rx 62.5 mcg-vilant 25 mcg .COMPLEX #60 ea inhalat.powder (Trelegy Ellipta) fluticasone propionate 50 See Rx Instructions .Route 11/13/24 01/29/25 Rx mcg/actuation nasal .COMPLEX #16 mL spray,suspension methylprednisolone 4 mg tablets in See Rx Instructions PO PER PKG DIR 01/29/25 01/29/25 Rx a dose pack (Medrol (Yordan)) #21 ea tirzepatide (weight loss) 2.5 2.5 mg (0.5 mL) subcut WEEKLY #2 mL 01/29/25 01/29/25 Rx mg/0.5 mL subcutaneous pen injector (Zepbound) eszopiclone 2 mg tablet 2 mg PO ONCE #1 tablet 02/05/25 Rx tirzepatide (weight loss) 5 mg/0.5 5 mg (0.5 mL) subcut WEEKLY #2 mL 03/12/25 Rx mL subcutaneous pen injector (Zepbound) <Yvrose Marin MD - Last Filed: 03/29/25 10:05> Sleep Procedure A full night polysomnogram using the trustedsafe SleepGuideSpark multi-channel system recorded the standard physiologic parameters including EEG, EOG, submentalis EMG, anterior tibialis EMG, EKG, body position, nasal and oral airflow using nasal pressure sensor and thermistor. Respiratory parameters of chest and abdominal movements were recorded with Respiratory Inductance Plethysmography belts. Oxygen saturation was recorded by pulse oximetry. Video monitoring was also performed. Sleep stages, periodic limb movements, and EEG arousals were scored in 30 second epochs according to the criteria of the AASM Scoring Manual. The Apnea-Hypopnea Index was calculated using CMS guidelines for definition of hypopnea with 4% O2 desaturations while scoring respiratory events. The patient self-administered Lunesta 2 mg at the start of the study. She did not meet criteria for split night study, this was conducted as a full night polysomnogram. <Yvrose Marin MD - Last Filed: 03/29/25 10:05> Sleep Architecture The total recording time was 474.0 minutes. The total sleep time was 405.0 minutes. Sleep latency was 21.3 minutes. REM latency was 149.5 minutes. Sleep efficiency was 85.4%. The patient had 33 awakenings for an awakening index of 4.9. Wake after sleep onset time was 47.5 minutes. The patient spent 53.0 minutes, 13.1% of total sleep time in Stage N1. The patient spent 300.0 minutes, 74.1% in Stage N2. The patient spent 16.5 minutes, 4.1% in Stage N3. The patient spent 35.5 minutes, 8.8% in Stage REM sleep. <Yvrose Marin MD - Last Filed: 03/29/25 10:05> Respiratory Analysis The patient had 20 hypopneas, no obstructive apneas, no mixed apneas, and no central apneas for an overall Apnea Hypopnea Index of 3.0. The REM Apnea Hypopnea Index was 6.8. The NREM Apnea Hypopnea Index was 2.8. The patient had a Central Apnea Hypopnea Index of 0. There were no Respiratory Effort Related Arousals. The Respiratory Disturbance Index is 5.5 events per hour. There was no evidence of Tommie-Quigley Respirations. <Yvrose Marin MD - Last Filed: 03/29/25 10:05> Arousals There were 261 total arousals for an arousal index of 38.7. There were 17 spontaneous arousals for an index of 2.5. There were 9 arousals due to respiratory events for an index of 1.3. There were 226 arousals due to periodic limb movements for an index of 33.5. There were 10 arousals due to isolated limb movements for an index of 1.5. <Yvrose Marin MD - Last Filed: 03/29/25 10:05> Periodic Limb Movements The patient had 45 isolated limb movements with an index of 6.7. The patient had 656 periodic limb movements with an index of 97.2. Patient had a total of 701 limb movements with a total limb movement index of 103.9. <Yvrose Marin MD - Last Filed: 03/29/25 10:05> Oximetry Data The patient had an average oxygen saturation of 93% in sleep with a minimum oxygen saturation of 86% and a maximum oxygen saturation of 100%. The patient had 20 oxygen desaturations that were 4% or greater resulting in an Oxygen Desaturation Index of 3.0. The patient spent 0.7 minutes, 0.1% of total sleep time with an oxygen saturation below 88%. <Yvrose Marin MD - Last Filed: 03/29/25 10:05> Snoring Profile Snoring was moderate. <Yvrose Marin MD - Last Filed: 03/29/25 10:05> Cardiac Profile The EKG showed normal sinus rhythm, average pulse rate of 59.9 bpm with a minimum pulse of rate of 51 bpm and a maximum pulse rate of 76 bpm. No arrhythmias noted. <Yvrose Marin MD - Last Filed: 03/29/25 10:05> EEG Profile Unremarkable, no evidence of seizures. <Yvrose Marin MD - Last Filed: 03/29/25 10:05> Assessment and Plan Assessment and Plan (1) PLMD (periodic limb movement disorder): Code(s): G47.61 - Periodic limb movement disorder <Yvrose Marin MD - Last Filed: 03/29/25 10:05> Status: Acute <Yvrose Marin MD - Last Filed: 03/29/25 10:05> Assessment and Plan: This basic nocturnal polysomnogram on 02/22/2025 does not show significant sleep disordered breathing. The apnea-hypopnea index was 3.0 using a 4% criteria, (AHI was 5.8 using 3% criteria) with a minimum desaturation of 86%, 0.7 minutes spent below 88% and moderate snoring. She has a history of obstructive sleep apnea, use CPAP but did not feel that she benefitted, did not plan to use CPAP again. During the study she had fragmented sleep with new murmurs arousals due to periodic limb movements. Her limb movement index was 103.9, and her periodic limb movement arousal index was 33.5, elevated, (normal is <= 15 events per hour). Her sleep history did not indicate that she kicks at night, and only occasionally she has uncomfortable feelings in her legs. She definitely kicks excessively at night and these leg movements are arousing her from sleep fragmenting her sleep and causing her daytime symptoms. She meets criteria for periodic limb movement disorder. Ferritin level is indicated to exclude iron deficiency anemia as a contributing factor. Ferritin should be 75 ng/mL or greater. If ferritin is below this, iron supplementation should be given to achieve ferritin of 75 ng/mL. There are nonpharmacologic methods to treat limb movements including daily exercise, stretching calf muscles before bed, avoiding excessive amounts of caffeine and alcohol, vitamin B supplementation, magnesium lotion massaged into legs before bed, and use of a weighted blanket. Pharmacologic therapy is very effective for restless legs syndrome and limb movements during sleep and may include [id number] voltage-gated calcium channel ligands such as gabapentin which is preferable to dopaminergic agents which can have augmentation. <Yvrose Marin MD - Last Filed: 03/29/25 10:05> (2) Snoring: Code(s): R06.83 - Snoring <Yvrose Marin MD - Last Filed: 03/29/25 10:05> Status: Acute <Yvrose Marin MD - Last Filed: 03/29/25 10:05> Assessment and Plan: The patient had moderate snoring throughout the study. Weight management is advised. Clinical data suggests that weight loss of 10% can reduce the severity of respiratory events and snoring. Consider evaluation of anatomy and complaints for rhintis and treat accordingly. Adhesive strips such as Breathe Right can decrease intesity of snoring. Positional therapy would not really help this patient. She did not spend much time in the supine position, mostly was on the left or right side. She has COPD and CHF, preferred not to sleep supine. <Yvrose Marin MD - Last Filed: 03/29/25 10:05> Data The data obtained during this sleep study is adequate for interpretation. <Yvrose Marin MD - Last Filed: 03/29/25 10:05> Certification This sleep study has been reviewed by a board certified sleep medicine physician. <Yvrose Marin MD - Last Filed: 03/29/25 10:05>
[2025-03-29 09:44] VITALS: BMI 36.3
== END 2025-02-23 06:39 | disposition home or self-care (01) ==
PROVIDERS: PCP Nurse Practitioner Adult Health; Visit Provider Nurse Practitioner Family
DX: G47.33 Obstructive sleep apnea (adult) (pediatric) (principal); G47.30 Sleep apnea, unspecified; G47.34 Idiopathic sleep related nonobstructive alveolar hypoventilation; Z78.9 Other specified health status
CPT/HCPCS: 95810

== ENCOUNTER 2025-04-02 11:40 | Outpatient (CLI) | payer MEDICARE, BC, SELFPAY ==
[2025-04-02 13:19] LABS: Ferritin 40.30 ng/mL (11.1-264)
== END 2025-04-02 11:41 | disposition home or self-care (01) ==
LOC: ANHLAB 11:43
PROVIDERS: PCP Nurse Practitioner Adult Health; Visit Provider Nurse Practitioner Family
DX: M25.50 Pain in unspecified joint (principal); M79.10 Myalgia, unspecified site; G47.61 Periodic limb movement disorder
CPT/HCPCS: 36415; 82728